=== PATIENT | female | born 1940 | race Caucasian/White ===

== ENCOUNTER → 2018-10-15 15:30 | Outpatient (CLI) | payer MEDICARE, BC, SELFPAY ==
--- NOTE | 2018-10-15 | DI.MG.S_ITS ---
UNILATERAL LEFT DIGITAL SCREENING MAMMOGRAM 3D/2D WITH CAD POST MASTECTOMY: 10/15/2018 CLINICAL: Routine screening. Personal history of right breast cancer. Family history of breast cancer. Comparison exams dated 06/28/2017, and 04/27/2010. There are scattered fibroglandular elements in left breast. Current study was also evaluated with a Computer Aided Detection (CAD) system. There are benign calcifications in the left breast. No significant masses, calcifications, or other findings are seen in the breast. IMPRESSION: There is no mammographic evidence of malignancy. A 1 year screening mammogram is recommended. This exam was interpreted at Station ID: [id number]. NOTE: For mammograms, a report in lay terms will be sent to the patient. Approximately 15% of breast malignancies will not be visualized mammographically. In the management of a palpable breast mass, a negative mammogram must not discourage biopsy of a clinically suspicious lesion. Electronically Signed By: Cristi Canseco M.D. at/:10/15/2018 17:29:11 copy to: EDIE PARRA letter sent: Normal Exam ACR BI-RADS Category 2: Benign Finding(s) 3342F
== END ==
PROVIDERS: Family Provider Family Medicine; PCP Family Medicine; Visit Provider Family Medicine
DX: Z12.31 Encounter for screening mammogram for malignant neoplasm of breast (principal); Z85.3 Personal history of malignant neoplasm of breast; Z80.3 Family history of malignant neoplasm of breast
CPT/HCPCS: 36415; 77063; 77067

== ENCOUNTER → 2020-10-14 12:25 | Outpatient (CLI) | payer MEDICARE, BC, SELFPAY ==
--- NOTE | 2020-10-14 12:27 | DI.US.S_ITS ---
PROCEDURE: US ABDOMEN COMPLETE INDICATIONS: IRRITABLE BOWEL SYNDROME TECHNIQUE: Real-time scanning was performed of the abdominal and retroperitoneal organs, with image documentation. COMPARISON: None. FINDINGS: Liver: Liver is normal in size and homogeneous in echotexture. Gallbladder: No gallstones identified. Normal gallbladder wall. No pericholecystic fluid. Negative sonographic Hammond sign. Biliary ducts: Intrahepatic bile ducts are non-dilated. Extrahepatic bile duct caliber measures 6.1 mm. Normal is 6-7 mm or less in diameter, or 10 mm or less post-cholecystectomy. Pancreas: Visualized portions of the pancreas are sonographically normal. Spleen: Spleen is normal in size and homogeneous in echotexture. Kidneys: Kidneys are normal in size and echotexture. Right kidney measures 9.4 cm long; left kidney measures 10 cm long. No hydronephrosis or nephrolithiasis. No solid masses. Bilateral renal cysts, largest of which is on the left measuring up to 3.3 cm. Aorta: Visualized aorta is normal in caliber at less than 3 cm. Vascular calcifications indicate atherosclerosis. Iliacs: Proximal common iliac arteries are normal in caliber at less than 2.5 cm. IVC: Intrahepatic inferior vena cava is patent. Miscellaneous: No free abdominal fluid. IMPRESSION: Multiple renal cysts; otherwise normal exam. Dictated by: Amrit SPANGLER Interpreted: Rashid Hodgson MD on 10/14/2020 at 13:42 Approved by: Rashid Hodgson M.D. on 10/14/2020 at 14:42
== END ==
PROVIDERS: Family Provider Family Medicine; PCP Family Medicine; Referring Provider Internal Medicine; Visit Provider Internal Medicine
DX: K58.8 Other irritable bowel syndrome (principal); Q61.02 Congenital multiple renal cysts
CPT/HCPCS: 76700

== ENCOUNTER → 2020-10-28 09:58 | Outpatient (CLI) | payer MEDICARE, BC, SELFPAY ==
--- NOTE | 2020-10-28 | DI.MG.S_ITS ---
UNILATERAL LEFT DIGITAL SCREENING MAMMOGRAM 3D/2D WITH CAD POST MASTECTOMY: 10/28/2020 CLINICAL: Routine screening. Personal history of right breast cancer. Family history of breast cancer. Comparison is made to exams dated: 10/15/2018 mammogram - [facility], 07/27/2017 mammogram, 07/12/2017 mammogram, and 06/28/2017 mammogram - [facility]. There are scattered fibroglandular elements in left breast. Current study was also evaluated with a Computer Aided Detection (CAD) system. There are benign vascular calcifications in the left breast. No significant masses, calcifications, or other findings are seen in the breast. There has been no significant interval change. IMPRESSION: BENIGN There is no mammographic evidence of malignancy. A 1 year screening mammogram is recommended. This exam was interpreted at Station ID: [id number]. NOTE: For mammograms, a report in lay terms will be sent to the patient. Approximately 15% of breast malignancies will not be visualized mammographically. In the management of a palpable breast mass, a negative mammogram must not discourage biopsy of a clinically suspicious lesion. Electronically Signed By: Raquel nicholson/serjio:10/28/2020 10:29:42 copy to: EDIE PARRA letter sent: Normal Exam ACR BI-RADS Category 2: Benign Finding(s) 3342F
== END ==
PROVIDERS: Family Provider Family Medicine; PCP Family Medicine; Referring Provider Family Medicine; Visit Provider Family Medicine
DX: Z12.31 Encounter for screening mammogram for malignant neoplasm of breast (principal); Z85.3 Personal history of malignant neoplasm of breast; Z80.3 Family history of malignant neoplasm of breast
CPT/HCPCS: 77063; 77067

== ENCOUNTER 2021-05-11 07:41 | Day surgery (SDC) | payer MEDICARE, BC, SELFPAY ==
--- NOTE | 2021-05-11 | PATH_ITS ---
[facility] Accession Number: [id number] . 01 Material submitted: . PART A: colon - ASCENDING COLON POLYP PART B: colon - RANDOM COLON BIOPSIES PART C: colon - SIGMOID COLON POLYPS X2 . 01 Clinical history: . SDC . 02 Diagnosis: A. Ascending Colon Polyp, Biopsy: Tubular adenoma. . B. Random Colon, Biopsies: Colonic mucosa with no diagnostic abnormality. Negative for active, chronic, and microscopic colitis. Negative for dysplasia and malignancy. . C. Sigmoid Colon Polyps, Biopsies: Tubulovillous adenoma x1. Tubular adenoma x1. Negative for high-grade dysplasia or malignancy. [facility] 05/14/2021 1204 Local . 02 Electronically signed: . Tad Nolasco MD, PhD, Pathologist NPI- [id number] . 01 Gross description: . A. Received in formalin and labeled with ascending colon polyp is one piece of rodriguez soft tissue measuring 0.8 x 0.5 x 0.5 cm. The tissue is inked, trisected and entirely submitted in cassette A1. B. Received in formalin and labeled with random colon biopsy is one fragment of rodriguez soft tissue measuring 0.2 x 0.2 x 0.1 cm. The fragment is entirely submitted in cassette B1. C. Received in formalin and labeled with sigmoid colon polyp are two pieces of rodriguez soft tissue measuring 0.8 x 0.8 x 0.5 and 0.7 x 0.6 x 0.5 cm. The first piece is inked, trisected and entirely submitted in cassette C1. The second piece is inked, trisected and entirely submitted in cassette C2. (BJ:[id number]) /MRV 05/12/2021 0940 Local . 02 Pathologist provided ICD-10: D12.2, D12.5, K62.5 . 02 CPT . 369502, 006457, 095473 Performed at: 01 [facility] [address] [address], [place], [place] [id number] MD Gwyn Rice MD Phone: [phone] Performed at: 02 [facility] [address] [place], [place] [id number] MD Macey Stallings MD Phone: [phone]
[2021-05-11 08:11] VITALS: BP 137/70; PULSE 79; RESP 16; TEMP 36.6; O2SAT 100; BMI 20.9
[2021-05-11 08:16] LABS: COVID19 -Nasal RAPID Negative (Negative)
--- NOTE | 2021-05-11 08:24 | P.HP_ITS ---
History of Present Illness History of Present Illness Date Patient Seen: 05/11/21 Time Patient Seen: 08:24 Chief complaint: SDC Narrative: Diarrhea bleeding I reviewed my notes no changes Patient History Family & Social History Social History: household members family Tobacco & Substance use: Smoking Status Former smoker alcohol intake frequency a few times a week Substance Use Type does not use Meds Home Medications and Allergies Home Medications Medication Instructions Recorded Confirmed Type Sertraline Hydrochloride (Zoloft) 50 mg PO DAILY #0 12/23/06 05/11/21 History [TUMERIC] 1,000 mg PO QAM #0 08/07/17 05/11/21 History loperamide 2 mg capsule 2 mg PO QDAY #0 08/07/17 05/11/21 History [IRON BUILDER] 1 tab PO DAILY #0 09/04/17 05/11/21 History aspirin 81 mg tablet,delayed 81 mg PO DAILY 12/06/17 05/11/21 History release letrozole 2.5 mg tablet 2.5 mg PO DAILY 12/06/17 05/11/21 History lisinopril 10 mg tablet 10 mg PO DAILY 12/06/17 05/11/21 History triamterene 37.5 1 cap PO DAILY 12/06/17 03/28/19 History mg-hydrochlorothiazide 25 mg capsule cholecalciferol (vitamin D3) 50 08/30/18 History mcg (2,000 unit) capsule (Vitamin D3) Review of Systems Review of Systems ROS: Yes All systems reviewed with the patient and are negative except as otherwise documented Exam Vital Signs (past 8 hours): - 05/11/21 08:11 Temperature 97.8 F Pulse Rate 79 Respiratory Rate 16 Blood Pressure 137/70 Pulse Oximetry 100 Oxygen Delivery Method Room Air Const General: cooperative and comfortable Orientation: alert [facility] Head: normocephalic Ears: external ears normal Nose: external nose normal Face and sinus: normal facial exam Mouth: oral mucosae normal Eyes General: appearance normal, both eyes and all related structures Neck Neck: normal visual inspection Chest Chest: normal inspection of the chest Resp Effort & Inspection: normal respiratory effort Auscultation: clear to auscultation bilaterally Cardio Rate: regular rate Rhythm: regular rhythm Heart Sounds: no murmurs GI Inspection: normal to inspection Palpation: soft and No tender Auscultation: normal bowel sounds Skin General: no rashes or lesions noted and No jaundice Neuro General: patient alert and moves all extremities Cognition: normal cognition Speech: speech normal Extrem General: no pedal edema Psych Appearance: grossly normal Objective Labs Labs: Laboratory Results - last 24 hr 05/11/21 07:56 SARS-CoV-2 (PCR) Negative Assessment & Plan Assessment & Plan narrative: Diarrhea. Improved with fiber. History of bleeding. Updated colonoscopy is pursued today. Time Spent With Patient Critical Care time: I spent a total of [] minutes of critical care time on this patient's care today; this time is exclusive of procedural time.
--- NOTE | 2021-05-11 08:25 | PM.PREOP ---
Pre-operative Note COVID-19 COVID-19 status: Negative Result date/Date tested (Pos, Neg/Pending): 05/11/21 Interval Note History & Physical reviewed/Exam performed by Physician: Yes Changes to H&P: No ASA Class (for procedural sedation): II
[2021-05-11] MEDS: SODIUM CHLORIDE 0.9% 1,000 ML 150 ML IV (08:26)
--- NOTE | 2021-05-11 09:33 | P.OP.COLON_ITS ---
Operative Date/Time/Diagnoses Date of procedure: 05/11/21 Time of procedure: 09:33 Pre-op diagnosis: Bleeding diarrhea Post-op diagnosis: same Procedure & Clinicians Study performed: Colonoscopy with hot snare polypectomy cold snare polypectomy and biopsies Same procedure as scheduled: Yes Indications: Rectal bleeding and diarrhea Surgeon: Edvin Joel Procedure Notes SCOAP/Timeout: Done Procedure in detail: After the risks and benefits were explained, written and verbal informed consent was obtained. The patient was brought into the procedure room and placed into the left lateral decubitus position. Please see nurse wood boatbuilder apprentice notes for sedation details. Digital rectal examination was accomplished. The scope was introduced into the patient and advanced under direct visualization to the cecum as identified by the appendiceal orifice and ileocecal valve. The scope was slowly withdrawn to carefully examine the mucosa for any defects or lesions. Comprehensive imaging was accomplished throughout the rectum including the dentate line. The colon was decompressed, the scope was then removed from the patient who tolerated the procedure well. Bowel prep adequate Pediatric colonoscope Scope withdrawal time: 21 minutes Sedation minutes: 29 Complications: none Impression: There was some mild diverticulosis in left colon. No colitis no proctitis. Random colon biopsies were taken for exclusion of microscopic disease. The there was a new 8 mm polyp sessile in the proximal ascending removed with hot snare. There was a 2nd approximately 2 cm polyp in the sigmoid colon removed with hot snare. A 3rd diminutive 4-5 mm polyp in the sigmoid was removed with cold snare. Endoscopic diagnosis 1. Colon polyps 2. Diverticulosis Post-procedure Plan for aftercare: 1. Await histopathology 2. Continue fiber regimen for soft regular stools. Surveillance colonoscopy would typically be pursued in 3 years based on the number of polyps seen and removed today. This places the patient at age 84 and therefore is not required. Disposition: PACU
[2021-05-11 09:35] VITALS: BP 127/75; PULSE 69; RESP 15; TEMP 36.5; O2SAT 97
[2021-05-11 09:43] VITALS: BP 134/65; PULSE 68; RESP 19; O2SAT 98
[2021-05-11 09:48] VITALS: BP 146/66; PULSE 63; RESP 25; O2SAT 99
== END 2021-05-11 10:04 | disposition home or self-care (01) ==
PROVIDERS: Family Provider Family Medicine; PCP Family Medicine; Referring Provider Internal Medicine Gastroenterology; Visit Provider Internal Medicine Gastroenterology
PROC: 0DJD8ZZ Inspection of Lower Intestinal Tract, Via Natural or Artificial Opening Endoscopic (ICD-10-PCS; CPT 45378; principal; 2021-05-11 09:00)
DX: K62.5 Hemorrhage of anus and rectum (principal); R19.7 Diarrhea, unspecified; R15.2 Fecal urgency; Z20.822 Contact with and (suspected) exposure to COVID-19; K57.30 Diverticulosis of large intestine without perforation or abscess without bleeding; D12.4 Benign neoplasm of descending colon; D12.5 Benign neoplasm of sigmoid colon
CPT/HCPCS: 45385; 45380; 87635; J2704

== ENCOUNTER 2022-03-25 22:08 | Emergency (ER) | payer MEDICARE, BC, SELFPAY ==
[2022-03-25 22:22] VITALS: BP 152/67; PULSE 74; RESP 16; TEMP 36.5; O2SAT 99; BMI 20.6
--- NOTE | 2022-03-25 22:34 | DI.RAD.S_ITS ---
PROCEDURE: XR WRIST LT MIN 3V INDICATIONS: fall TECHNIQUE: 3 views of the wrist were acquired. COMPARISON: [facility], , WRIST MINIMUM 3 VIEWS RIGHT, 12/31/2015, 11:23. FINDINGS: Bones: There is a transverse fracture through the distal radial metadiaphysis with proximal and dorsal displacement. There is also slight dorsal angulation. Fracture involve the distal radioulnar joint. There is also mildly displaced transverse fracture of the distal ulna with mild dorsal displacement and angulation. There is mild to moderate degeneration at the 1st carpometacarpal joint and triscaphe articulation as well as the radiocarpal joint. There is diffuse osteopenia. Soft tissues: There is periarticular soft tissue swelling at the wrist. There is a corticated ossicle adjacent to the distal ulnar consistent with sequelae of a prior ulnar styloid fracture. IMPRESSION: 1. Fractures of the distal radius and ulna as described. Dictated by: Gwyn Solo M.D. on 03/26/2022 at 0:07 Approved by: Gwyn Solo M.D. on 03/26/2022 at 0:15
--- NOTE | 2022-03-26 00:27 | ED.TRAUMA ---
HPI - Trauma General Chief Complaint: Extremity Injury, Upper Stated Complaint: Fell and hurt left wrist Time Seen by Provider: 03/26/22 00:02 Source: patient Mode of arrival: Wheelchair History of Present Illness HPI narrative: 81-year-old woman with a history of breast cancer, hypertension depression presents after a fall on an outstretched hand while she was getting into bed. Seems like it was a mechanical fall she has no other complaints she has an obvious deformity to the left wrist and is otherwise neurovascularly intact. She reports no recent fevers, cough, chest pain, abdominal pain, palpitations, dyspnea car, orthopnea, lower extremity edema. Related Data Home Medications Medication Instructions Recorded Confirmed Sertraline Hydrochloride (Zoloft) 50 mg PO DAILY ##0 12/23/06 05/11/21 [TUMERIC] 1,000 mg PO QAM ##0 08/07/17 05/11/21 loperamide 2 mg capsule 2 mg PO QDAY ##0 08/07/17 05/11/21 [IRON BUILDER] 1 tab PO DAILY ##0 09/04/17 05/11/21 aspirin 81 mg tablet,delayed 81 mg PO DAILY 12/06/17 05/11/21 release letrozole 2.5 mg tablet 2.5 mg PO DAILY 12/06/17 05/11/21 lisinopril 10 mg tablet 10 mg PO DAILY 12/06/17 05/11/21 triamterene 37.5 1 cap PO DAILY 12/06/17 03/28/19 mg-hydrochlorothiazide 25 mg capsule cholecalciferol (vitamin D3) 50 08/30/18 mcg (2,000 unit) capsule (Vitamin D3) Previous Rx's Medication Instructions Recorded letrozole 2.5 mg tablet 2.5 mg PO DAILY #90 tabs 11/15/21 hydrocodone 5 mg-acetaminophen 325 1 tab PO Q6HR PRN pain 4 days #12 03/26/22 mg tablet tabs Allergies Allergy/AdvReac Type Severity Reaction Status Date / Time No Known Drug Allergies Allergy Verified 05/11/21 09:39 Review of Systems Review of Systems Narrative: Remainder of complete review of systems is otherwise unremarkable except for that included in the HPI. Patient History Medical History (Updated 03/26/22 @ 02:32 by lAda Browning MD) Hypertension Malignant neoplasm of right female breast Social History household members: family Smoking Status: Former smoker Smoking Status: Former smoker alcohol intake frequency: a few times a week Substance Use Type: does not use Exam Initial Vital Signs Initial Vital Signs: Vital Signs Temperature 97.7 F 03/25/22 22:22 Pulse Rate 74 03/25/22 22:22 Respiratory Rate 16 03/25/22 22:22 Blood Pressure 152/67 H 03/25/22 22:22 Pulse Oximetry 99 03/25/22 22:22 Oxygen Delivery Method 03/25/22 22:22 General: Alert appropriate in no acute distress Respiratory: Able to speak in full sentences, no obvious respiratory distress Skin: No obvious rashes, warm and dry Neurologic: Grossly intact no obvious asymmetries or abnormalities Psych: appropriate insight and affect, cooperative Extremity: Left wrist with significant bruising, mild deformity, neurovascularly intact, increased swelling. No pain or tenderness to the elbow humerus or shoulder. Procedures Orthopedic Fracture Reduction left wrist: Time of procedure: 02: Side: left Fracture Reduction Location: radius and ulna Analgesia: hematoma block Technique: direct manipulation Post Reduction X-rays Demonstrate: acceptable reduction Post-reduction neuro exam: intact Post-reduction vascular exam: intact Splint Applied: Yes Patient Tolerated Procedure: Well Orthopedic Splinting/Casting left wrist: Time of procedure: 02:28 Side: left Upper Extremity Injury Location: wrist Upper Extremity Immobilizer: sugar tong splint Other Orthopedic Equipment: other (sling) Post splinting neuro exam: intact Post splinting vascular exam: intact Placed by: Provider Course Orders Ordered: ED Orders 03/25/22 22:34 XR wrist LT min 3V Stat 03/26/22 02:23 XR wrist LT min 3V Stat Discontinued Medications Acetaminophen (Acetaminophen 325 Mg Tablet) 325 mg PO NOW ONE Stop: 03/26/22 00:27 Last Admin: 03/26/22 00:56 Dose: 325 mg Documented By: KAREN Hydrocodone Bitart/Acetaminophen (Hydrocodone/Acet 10/325 Tablet) 1 tab PO NOW ONE Stop: 03/26/22 00:27 Last Admin: 03/26/22 00:55 Dose: 1 tab Documented By: KAREN Hydrocodone Bitart/Acetaminophen (Hydrocodone/Acet 5/325 Prepack) 1 bottle MISC SEEINSTR ONE Stop: 03/26/22 02:25 Lidocaine/Sodium Bicarbonate (Lido 1%/Sod Bicarb 8.4% (10ml) 10 Ml Syringe) 10 ml INJ NOW ONE Stop: 03/26/22 00:27 Last Admin: 03/26/22 00:50 Dose: Not Given Documented By: YASEMIN Vital Signs Vital signs: Vital Signs - 8 hr 03/25/22 22:22 Temperature 97.7 F Pulse Rate 74 Respiratory Rate 16 Blood Pressure 152/67 H Pulse Oximetry 99 Oxygen Delivery Method Room Air MDM - Trauma Imaging Data XR wrist: Radiologist's Impression: FINDINGS:? ? Bones:? There is a transverse fracture through the distal radial metadiaphysis with proximal and dorsal displacement.? There is also slight dorsal angulation.? Fracture involve the distal radioulnar joint.? There is also mildly displaced transverse fracture of the distal ulna with mild dorsal displacement and angulation.? There is mild to moderate degeneration at the 1st carpometacarpal joint and triscaphe articulation as well as the radiocarpal joint.? There is diffuse osteopenia. ? Soft tissues:? There is periarticular soft tissue swelling at the wrist.? There is a corticated ossicle adjacent to the distal ulnar consistent with sequelae of a prior ulnar styloid fracture. ? IMPRESSION:? ? 1. Fractures of the distal radius and ulna as described. ? ? Dictated by: Gwyn Solo M.D. on 03/26/2022 at 0:07 ? ? [facility] Narrative Medical decision making narrative: 81-year-old woman with a fall on an outstretched left wrist with fractures of the distal radius and ulna with impaction, displacement and angulation. Hematoma block was used to slightly reduce the fracture with successful reduction in pain. Sugar-tong splint is placed and a sling is placed. She tolerated both well. Discharge Plan Departure Patient Disposition: Home Clinical Impression: Fracture of wrist Instructions: DI for Wrist Fracture Activity Restrictions/Additional Instructions: I am sorry that you ended up breaking your wrist tonight We did straighten it out slightly but you absolutely need to follow-up with the orthopedic surgeon and may need surgery for this fracture. Please keep the splint in place and use the sling to help support your arm. Two Tylenol every 6 hours can be very helpful in controlling pain. For severe pain you can use 1 ibuprofen and 1 Vicodin. This is the medication we gave you in the emergency department. Vicodin has narcotic in it and narcotics will make you constipated. Please add an extra scoop of MiraLax to your current bowel regimen on any days that you take Vicodin. On Monday you need to contact [facility] at [phone] Please explain to them that you are in the emergency department on Monday night and you have a wrist fracture that needs definitive treatment. If you find that you are getting worse or develop any new symptoms, please feel free to return to the emergency department for further evaluation. Prescriptions: New hydrocodone-acetaminophen 5-325 mg tablet 1 tab PO Q6HR PRN (Reason: pain) 4 Days Qty: 12 0RF No Action Sertraline Hydrochloride (Zoloft) 50 mg PO DAILY Qty: 0 loperamide 2 MG capsule 2 mg PO QDAY Qty: 0 [TUMERIC] 1,000 mg PO QAM Qty: 0 [IRON BUILDER] 1 tab PO DAILY Qty: 0 aspirin 81 mg Tablet,Delayed Release (Dr/Ec) 81 mg PO DAILY triamterene-hydrochlorothiazid 37.5-25 mg Capsule 1 cap PO DAILY lisinopril 10 mg Tablet 10 mg PO DAILY letrozole 2.5 mg Tablet 2.5 mg PO DAILY Label Comments: started rx 09/2017 cholecalciferol (vitamin D3) [Vitamin D3] 2,000 unit Capsule letrozole 2.5 mg Tablet 2.5 mg PO DAILY Qty: 90 3RF Referrals: Johnathan Zhu MD [Primary Care Provider] -
[2022-03-26] MEDS: HYDROCODONE/ACET 10/325 TABLET 1 TAB PO (00:55)
[2022-03-26] MEDS: ACETAMINOPHEN 325 MG TABLET PO (00:56)
--- NOTE | 2022-03-26 02:23 | DI.RAD.S_ITS ---
PROCEDURE: XR WRIST LT MIN 3V INDICATIONS: post reduction TECHNIQUE: 3 views of the wrist were acquired. COMPARISON: [facility], CR, XR WRIST LT MIN 3V, 03/25/2022, 22:41. FINDINGS: Bones: Generalized decrease in osseous mineralization noted. Transverse fracture through the distal radial metaphysis noted with dorsal displacement of distal fracture fragment, similar to the prior. Nondisplaced distal ulnar fracture. Overlying fiberglass cast Soft tissues: No suspicious soft tissue calcifications. IMPRESSION: Dorsally displaced distal radial fracture. Nondisplaced distal ulnar fracture Osteopenia Approved by: Afshin Jackson M.D. on 03/26/2022 at 6:25
[2022-03-26] MEDS: LIDOCAINE 2% INJ SDV 20 ML (03:12)
[2022-03-26] MEDS: HYDROCODONE/ACET 5/325 PREPACK 1 BOTTLE MISC (03:19)
[2022-03-26 03:20] VITALS: BP 152/83; PULSE 62; RESP 18; TEMP 36.4; O2SAT 94
== END 2022-03-26 03:28 | disposition home or self-care (01) ==
PROVIDERS: Emergency Provider Emergency Medicine; Family Provider Family Medicine; PCP Family Medicine
DX: S52.502A Unspecified fracture of the lower end of left radius, initial encounter for closed fracture (principal); W19.XXXA Unspecified fall, initial encounter
CPT/HCPCS: 25605; 29105; 73110; 99284

== ENCOUNTER → 2022-03-30 13:58 | Outpatient (CLI) | payer MEDICARE, BC, SELFPAY ==
[2022-03-30 14:32] LABS: COVID19 -Nasal RAPID Negative (Negative)
== END ==
PROVIDERS: Family Provider Family Medicine; PCP Family Medicine; Referring Provider Orthopaedic Surgery Foot and Ankle Surgery; Visit Provider Orthopaedic Surgery Foot and Ankle Surgery
DX: Z20.822 Contact with and (suspected) exposure to COVID-19 (principal)
CPT/HCPCS: 87635; C9803

== ENCOUNTER 2022-04-01 09:48 | Day surgery (SDC) | payer MEDICARE, BC, SELFPAY ==
[2022-03-29 15:01] VITALS: BMI 22.1
[2022-04-01 10:20] VITALS: BP 139/73; PULSE 65; RESP 18; TEMP 36.8; O2SAT 99; BMI 22.1
[2022-04-01] MEDS: LACTATED RINGERS 1,000 ML 120 ML IV (10:46)
--- NOTE | 2022-04-01 11:12 | PM.PREOP ---
Pre-operative Note COVID-19 COVID-19 status: Negative Interval Note History & Physical reviewed/Exam performed by Physician: Yes Changes to H&P: No
--- NOTE | 2022-04-01 11:27 | SUR.PREOP ---
Block start time [1120] . Monitoring initiated and maintained throughout procedure. Oxygen and medications given by anesthesiologist instructions. Patient remained stable throughout procedure, no adverse reactions noted. Block end time [1126].
[2022-04-01] MEDS: CEFAZOLIN 2 GM/100 ML PREMIX 100 ML IV (11:46)
--- NOTE | 2022-04-01 12:18 | SUR.OPER ---
Supine on padded OR bed, head on pillow, arms secured on padded arm boards at <90 degrees abduction, legs uncrossed, safety belt at thigh, tape over blanket over lower legs.left arm in control of surgeon
--- NOTE | 2022-04-01 12:36 | SUR.OPER ---
Addendum entered by Fiorella Tran R.N. 04/01/22 14:41: Patients bilateral hearing aids with patient in the OR and then to PACU with her personal small black case for the hearing aids. Bilateral hearing aids visualized in patient in PACU. Original Note: MINI C ARM CONTROL BY SURGEON
[2022-04-01 13:32] VITALS: BP 147/68; PULSE 64; RESP 12; TEMP 36.2; O2SAT 96
[2022-04-01 13:37] VITALS: BP 148/108; PULSE 73; RESP 16; O2SAT 96
[2022-04-01 13:41] VITALS: BP 153/81; PULSE 63; RESP 14; O2SAT 96
[2022-04-01 13:46] VITALS: BP 144/78; PULSE 62; RESP 14; O2SAT 95
[2022-04-01 13:51] VITALS: BP 157/73; PULSE 59; RESP 12; O2SAT 95
--- NOTE | 2022-04-01 14:22 | PM.OP.1 ---
Operative Date/Time/Diagnoses Date of procedure: 04/01/22 Time of procedure: 12:22 Pre-op diagnosis: Left distal radius fracture S52.532A Left distal ulna fracture S52. 692A Disruption distal radioulnar joint left S63.592A Post-op diagnosis: same Procedure & Clinicians Procedure: 1. Open reduction internal fixation left distal radius fracture CPT code 81268 2. Percutaneous skeletal fixation ulnar neck fracture CPT code 46059 3. Distal radial ulnar joint percutaneous skeletal fixation, pinning distal radial ulnar joint dislocation CPT code 22851 Same procedure as scheduled: Yes Indications: The patient is an 81-year-old female who had a fall onto her nondominant left wrist. She sustained distal radius and ulna fractures with disruption of the DRUJ. She does have some deformity from previous non operatively treated distal radius fracture years ago. She was indicated for surgical treatment due to the significant displacement and shortening and suspected DRUJ disruption. She depends heavily on her upper extremities for mobilization due to debilitating hip arthritis. Due to the nature of the fracture instability and shortening and displacement I have recommended surgical treatment to obtain alignment and provide stability and facilitate relatively early range of motion and loading. The risks and benefits of the procedure have been discussed with the patient and given the opportunity to ask questions. The risks of surgery include but are not limited to infection, malunion, nonunion, persistence of pain, damage to nerves and blood vessels, posttraumatic arthritis, DVT, PE, coardiopulmonary complications and . The patient expressed a thorough understanding of the risks and benefits of surgery and has elected to proceed. Consent was signed in the office. Surgeon: Keely Mitchell Click Yes if Unassisted: Yes Anesthesia Type: MAC +/- and Peripheral nerve block Operative Notes Findings: Dorsally displaced distal radius fracture, extra-articular with volar dislocation distal ulna and nondisplaced ulnar neck fracture. Distal radius fracture was reduced with flexion and translation of the distal fragment volarly this was pinned and then stabilized with a volar locking plate from the Arthrex set. Next attention was turned to the ulna fracture this was a nondisplaced ulnar neck fracture this was pinned cross K-wires. Next the DRUJ was tested for stability it was noted that the ulnar head remained dislocated volarly this was able to be reduced with pronation and dorsal translation of the ulna this was then pinned in place with cross K-wire and checked under fluoroscopy noting improvement of the DRUJ interval and position on the lateral radiographs. Closure Type: primary Specimen(s): none sent Prosthetic devices, grafts, tissues, transplants, or devices: Distal radius fixation: Arthrex narrow volar locking distal radius plate with 1 nonlocking and the rest locking distal screws and pegs. Proximally 1 nonlocking screw was placed in the oblong hole followed by 2 locking shaft screws. Distal ulna fixation: K-wire 1.35 (initially 2 cross wires were placed. One was removed with dressings. X-rays were taken confirmed removal and maintenance of the other wire and stability) DRUJ fixation crossed K-wire 1.35 Estimated Blood Loss (mL): 10 Blood products transfused: none Tourniquet time (min): 56 Procedure in detail: Patient was seen the preoperative area the site of surgery marked informed consent confirmed. She was brought back to the operating room by the anesthesia team. A regional block was placed by the anesthesiologist for postoperative pain control and to avoid general anesthetic. Patient was positioned supine on operative table. The left upper extremities placed on a hand table. A nonsterile brachial tourniquet was placed. The patient was prepped and draped in standard sterile fashion a formal time-out procedure was performed confirming the patient's side and site of surgery administration of appropriate preoperative antibiotics. All were in the room in agreement. 2 g of Ancef was administered. The operative extremity was prepped and draped in the standard sterile fashion. An Esmarch was used for exsanguination and the brachial tourniquet was raised to 250 mm of mercury. Standard FCR approach to the wrist was drawn in the incision made. The FCR was exposed. The sheath was opened and the tendon was retracted ulnar protect the palmar cutaneous branch of the median nerve. Floor of the FCR was opened to expose the deep muscles. The FPL was retracted ulnar and the pronator quadratus was released from the radial border and reflected ulnar to expose the distal radius and distal fracture. Fracture was disimpacted and clean. The fracture was reduced with traction, flexion ulnar deviation. An 045 K-wire was advanced percutaneously from the radial styloid to the metaphysis to hold the reduction. Reduction was checked fluoroscopy and radial inclination tilt was recreated. Three hole narrow Arthrex volar locking plate was selected and positioned and provisionally fixed with K-wires. And a ORION Parham. Once this was satisfactory, nonlocking 3.5 screws placed in the oblong hole and secured. Distal screws were then placed 1st with nonlocking screws followed by locking pegs. These were placed carefully not to penetrate the dorsal cortex. Once this was completed and checked for prominence the final locking shaft screws were placed. Again with care to avoid prominence. Final intraoperative images were obtained reviewed demonstrating no evidence of hardware prominence. Attention was then turned to the distal ulna fracture. There was a nondisplaced distal ulna neck fracture there is evidence of the previous old ulnar styloid fracture. The new ulnar neck fracture was pinned with cross K-wires. Wrist motion was checked and was full but the DRUJ was unstable there was increased shock and felt volar dislocated and prominent in the volar wrist. This was reduced with pronation and dorsal translation of the distal ulna and then gentle medial lateral pressure on the DRUJ and was pinned with a ulna to radius wire across the DRUJ to hold this in a reduced position. Once this was completed this was stabilize the DRUJ. Radiographs were once again taken confirming the reduced position on AP and lateral radiographs. The wound was then irrigated and closed in layers. Hemostasis was achieved and the tourniquet was released prior to closing. 3- 0 Vicryl was used deep and subcutaneous and 3 O nylon in the skin. Sterile dressings with a long-arm splint in pronation were applied to help keep the DRUJ reduction since this was a volarly unstable DRUJ. There no immediate complications. Surgical counts were correct. The patient tolerated the procedure well was taken recovery room. Complications: none Post-operative Condition: stable Disposition: PACU Plan for aftercare: Patient will be maintained in a long-arm splint in pronation as this is the position of stability for her DRUJ dislocation. The cross K-wires for the ulna and DRUJ will stay in place for weeks. At the 4 week olivia she will be converted to a short arm brace or cast. Prescriptions for Ribera and Zofran sent to her pharmacy. She may place some weight on the forearm with a platform walker if necessary for balance. Otherwise nonweightbearing left upper extremity
--- NOTE | 2022-04-01 14:49 | SUR.PHASEII ---
Pt given instructions for discharge as well her daughter. Incontinent x1 prior to DC. Changed and given scrubs. Dr Mitchell also spoke with pt prior to discharge.
== END 2022-04-01 14:35 | disposition home or self-care (01) ==
PROVIDERS: Family Provider Family Medicine; PCP Family Medicine; Referring Provider Orthopaedic Surgery Foot and Ankle Surgery; Visit Provider Orthopaedic Surgery Foot and Ankle Surgery
PROC: (CPT 25607; principal; 2022-04-01 11:15)
DX: S52.532A Colles' fracture of left radius, initial encounter for closed fracture (principal); S52.692A Other fracture of lower end of left ulna, initial encounter for closed fracture; S63.592A Other specified sprain of left wrist, initial encounter; W19.XXXA Unspecified fall, initial encounter
CPT/HCPCS: 25607; 25651; 25671; 64450; C1713; J0171; J0690; J2250; J2704; J3010

== ENCOUNTER → 2022-07-27 09:54 | Outpatient (CLI) | payer MEDICARE, BC, SELFPAY ==
--- NOTE | 2022-07-27 | DI.US.S_ITS ---
PROCEDURE: US ABDOMEN LIMITED INDICATIONS: ABNORMAL LABS TECHNIQUE: Real-time focused scanning was performed of the abdomen, with image documentation. COMPARISON: [facility], , US ABDOMEN COMPLETE, 10/14/2020, 12:31. FINDINGS: The liver is normal in size and demonstrates no suspicious lesions. Within the right liver, there is a 1.2 cm cyst. Within the right liver there is an additional septated cyst anteriorly measuring 0.8 cm. The main portal vein demonstrates normal size and demonstrates normal appearing, hepatopetal flow. No findings of gallstones or sludge are seen. The gallbladder wall is not thickened, measuring 3 mm or less. No specific pericholecystic fluid is seen. The sonographic Hammond sign is negative. There is no biliary dilatation, the common bile duct measures 7 mm. No significant pancreatic abnormality is seen on these images. Numerous right kidney cysts are seen, with the largest seen superiorly/anteriorly measuring up to 17 mm. The right kidney demonstrates normal size, with normal cortical thickness. Note is made of plaque within the aorta and SMA. IMPRESSION: No imaging explanation is found for this patient's presenting symptoms. Liver and right renal cysts noted. Dictated by: Norman Michelle M.D. on 07/27/2022 at 11:30 Approved by: Norman Michelle M.D. on 07/27/2022 at 11:32
== END ==
PROVIDERS: Family Provider Family Medicine; PCP Family Medicine; Referring Provider Family Medicine; Visit Provider Family Medicine
DX: K76.89 Other specified diseases of liver (principal); N28.1 Cyst of kidney, acquired; R74.9 Abnormal serum enzyme level, unspecified
CPT/HCPCS: 76705

== ENCOUNTER → 2022-08-08 14:59 | Outpatient (CLI) | payer MEDICARE, BC, SELFPAY ==
[2022-08-08 15:30] LABS: Add Manual Diff / Slide Review NO; Basophils Absolute Auto 100 /uL (0-100); Basophils Percent Auto 1.5 % (0-2); Eosinophils Absolute Auto 700 /uL (0-450); Eosinophils Percent Auto 12.2 % (2-4); Hemoglobin 10.9 g/dL (12.0-16.0); Lymphocytes Absolute Auto 1400 /uL (1100-4500); Lymphocytes Percent Auto 23.5 % (25-40); Mean Corpuscular Hemoglobin 29.3 PG (26-34); Mean Corpuscular Volume 88.6 fL (80-100); Monocytes Absolute Auto 500 /uL (0-900); Neutrophils Absolute Auto 3200 /uL (1500-7000); Neutrophils Percent Auto 53.8 % (50-75); Platelet Count 209 X10^3/uL (150-400); Red Blood Cell Count 3.72 X10^6/uL (4.0-5.2); Red Cell Distribution Width 14.8 % (11.6-14.8); White Blood Cell Count 5.9 X10^3/uL (4.5-11.0)
[2022-08-08 15:33] LABS: Hemoglobin A1C% w Est Avg Glu 5.4 % (4.0-6.0)
[2022-08-08 15:40] LABS: Appearance Urine UA CLEAR; Bilirubin Urine UA NEGATIVE (NEGATIVE); Color Urine UA YELLOW; Glucose Urine UA NEGATIVE (Negative); Ketones Urine UA NEGATIVE (NEGATIVE); Leukocyte Esterase Urine UA NEGATIVE (NEGATIVE); Nitrite Urine UA NEGATIVE (Negative); Occult Blood Urine UA NEGATIVE (Negative); Protein Urine UA NEGATIVE (Negative); Urobilinogen Urine UA 0.2 E.U./dL (0.2)
[2022-08-08 15:52] LABS: Amorphous Sediment Urine 1+; Bacteria Urine None Seen; Culture Indicated Urine Cult Not Indicated; RBC Urine None Seen (0-5/HPF); Squamous Epithelial Cell Urine 0-1 /HPF (0-5/HPF); WBC Urine 0-1/HPF (0-5/HPF)
[2022-08-08 16:01] LABS: Blood Urea Nitrogen 29 mg/dL (7-17); Calcium 10.4 mg/dL (8.4-10.2); Carbon Dioxide 25 mmol/L (22-32); Chloride 98 mmol/L (98-107); Estimated Glomerular Filt Rate 36 mL/min (>60); Glucose 104 mg/dL (80-110); HEMOLYSIS < 15 (0-50); Potassium 4.3 mmol/L (3.4-5.1); Sodium 133 mmol/L (137-145)
== END ==
PROVIDERS: Family Provider Family Medicine; PCP Family Medicine; Referring Provider Orthopaedic Surgery; Visit Provider Orthopaedic Surgery
DX: R73.9 Hyperglycemia, unspecified (principal); Z01.812 Encounter for preprocedural laboratory examination; N39.0 Urinary tract infection, site not specified
CPT/HCPCS: 36415; 80048; 81001; 83036; 85025

== ENCOUNTER 2022-10-14 12:27 | Inpatient (IN) | payer MEDICARE, BC, SELFPAY ==
[2022-10-03 08:19] VITALS: BMI 21.7
[2022-10-13] VITALS (10 sets, daily range): BP systolic 113–175; BP diastolic 49–83; PULSE 45–79; RESP 12–17; TEMP 36.6–37.3; O2SAT 92–98; BMI 21.7
--- NOTE | 2022-10-13 07:10 | DI.RAD.S_ITS ---
PROCEDURE: XR HIP W PEL IF DONE LT 2V INDICATIONS: Postop XR TECHNIQUE: AP pelvis and lateral view of the left hip acquired. COMPARISON: None. FINDINGS: Bones: Patient is status post left hip arthroplasty, with hardware components in expected positions. The hip joint appears congruent. The visualized bony structures appear intact. Remote total right hip arthroplasty. Soft tissues: Overlying postoperative changes are noted. No suspicious soft tissue densities. IMPRESSION: Expected immediate postoperative appearance, status post total left hip arthroplasty. Dictated by: Foreign Howard M.D. on 10/13/2022 at 13:35 Approved by: Foreign Howard M.D. on 10/13/2022 at 13:36
[2022-10-13 09:20] LABS: COVID19 -Nasal RAPID Negative (Negative)
[2022-10-13] MEDS: LACTATED RINGERS 1,000 ML 42 ML IV ×2 (09:25→13:34)
[2022-10-13] MEDS: ACETAMINOPHEN 325 MG TABLET 975 MG PO (09:25)
[2022-10-13] MEDS: CELECOXIB 200 MG CAPSULE PO (09:26)
[2022-10-13] MEDS: PREGABALIN 75 MG CAPSULE PO (09:26)
[2022-10-13] MEDS: VANCOMYCIN 1,000 MG/200 ML PIGGYBACK 200 MG IV (10:08)
--- NOTE | 2022-10-13 10:33 | PM.PREOP ---
Pre-operative Note Interval Note History & Physical reviewed/Exam performed by Physician: Yes Changes to H&P: No
--- NOTE | 2022-10-13 10:35 | PM.OP.1 ---
Operative Date/Time/Diagnoses Date of procedure: 10/13/22 Time of procedure: 10:55 Pre-op diagnosis: left hip OA Post-op diagnosis: same Procedure & Clinicians Procedure: Left total hip arthroplasty anterior approach Same procedure as scheduled: Yes Indications: The patient has had progressively worsening left hip pain with radiographic changes consistent with arthritis. Non-operative management has failed and the patient has requested total hip replacement. The risks, benefits and alternatives to surgery were discussed with the patient prior to proceeding. Risks discussed included, but were not limited to, failure to relieve pain, leg length discrepancy, dislocation, stiffness, infection, nerve damage, deep venous thrombosis, pulmonary embolism, stroke, coma, heart attack, permanent paralysis and , as well as the potential need for eventual revision of the prosthetic. Surgeon: Hanna Rivera Chief Development Officer: Sandro Blevins Anesthesia Type: Spinal Operative Notes Findings: Severe left hip osteoarthritis, adequate stability Closure Type: primary Specimen(s): none sent Prosthetic devices, grafts, tissues, transplants, or devices: Rivera and nephew anthology standard offset size 8, 52 mm R3 cup, 36 x 52 mm neutral poly liner, 36 x -3 cobalt femoral head Estimated Blood Loss (mL): 200 Blood products transfused: none Procedure in detail: The patient was brought to the operating room. Patient was carefully positioned in the supine position. Time-out was performed and antibiotics were given. Anesthesia was induced. She was positioned in the on the table in order to allow hyperextension of the hip. The left lower extremity was prepped and draped in a standard sterile fashion. An anterior left hip incision was made 1 fingerbreadth lateral to the anterior superior iliac spine and extended distally towards the greater trochanter. Dissection was carried out through skin and subcutaneous tissues. Superficial hemostasis was achieved. The fascia over the tensor fascia halima was defined and incised with a knife. Two Allis clamps were used to grasp the fascia. Tensor fascia halima was retracted laterally. A gelpi retractor was placed. Dissection was carried out down along the neck. The circumflex vessels were carefully identified and cauterized with the Aqua Mantis. There was good visualization of the femoral neck. A Cobra was placed superior to the neck and the gluteus fibers were carefully stripped from that superior aspect of the capsule. A 2nd retractor was placed along the inferior aspect of the neck. The rectus insertion along the capsule was partially released. A 3rd retractor that was then gently placed over the rim of the acetabulum under the rectus. Capsule was carefully incised and released from the intertrochanteric line circumferentially superior to the mid sagittal line and inferiorly to the mid sagittal line until the lesser trochanter was palpable. A tag stitch was placed both in the superior and inferior limb of the capsular insertion. Along the acetabulum capsule was also released up to the mid sagittal 12:00 position. A portion of the labrum was resected. A saw was used to perform an osteotomy at the level of the intertrochanteric line and the junction of the superior femoral neck leaving approximately 1 finger breath of residual inferior neck above the lesser trochanter. A 2nd cut was made along the femoral neck at the base of the head and a napkin ring of neck was removed. Corkscrew was placed in the femoral head and the head was removed without difficulty. Retractors were then repositioned around the acetabulum. Residual labrum was resected and additional osteophytes were removed. A reamer that was 4 mm below the templated size was placed by hand in the acetabulum and it was reamed to centralize the acetabulum. It was then reamed up to 2 under the templated size and fluoroscopy was brought in to confirm the position of the reaming and depth of reaming. I reamed 1 under the anticipated size. A trial cup was placed and noted that it was appropriately sized and fluoroscopy confirmed position and depth. The component was open and inserted without difficulty fluoroscopic imaging was used to confirm that the cup had been adequately seated and was well positioned. It was further stabilized with a single screw. Neutral poly liner was placed. The cup was tested and noted to be stable. Attention was then directed to the femur. The femur was gently hyperextended additional capsular release was performed as needed in order to allow adequate visualization of the proximal femur with elevation of the femur. Patient was placed in a hyperextended slightly adducted position with maximum external rotation. Box osteotome was used to check for any residual neck as well as sclerotic bone along the trochanter. [place] pepper was placed in the femur. Additional broaching was performed. Canal finder was used to determine the alignment of the canal and position. Size 1 broach was placed. The canal was then appropriately broached up to the templated size as long as there was adequate stability of the broach and serial advancement of the broach without excessive impingement. Specific attention was directed at avoiding varus attempting to direct the distal aspect of the broach more anteriorly and avoiding excessive anteversion. Trial reduction showed acceptable range of motion, good stability, no posterior impingement, nondenominational of leg length and appropriate lateral shuck. I also hyperflexed the hip and checked that there was no impingement anteriorly and there was good stability with flexion, adduction and internal rotation. Marcaine and Exparel were injected. The stem was placed without difficulty. Repeat trial reduction and x-ray showed acceptable overall position, length, and no evidence of the femoral fracture. Final head was placed. Wound was meticulously irrigated with normal saline. The hip was reduced and additional Exparel and Marcaine were injected. The capsule was closed with interrupted nonabsorbable sutures. The fascia of the tensor was closed with interrupted and running Vicryl. No drain was placed. Any tensor fascia halima muscle that appeared to be contused or injured which was a minimal amount was carefully resected. Capsule around the tensor was injected with Exparel and Marcaine. The skin was closed with barbed stitches for the subcutaneous tissue and skin. We also used surgical glue. The wound was dressed sterilely. Brief Betadine soak was also used and was meticulously irrigated with normal saline. Patient was transferred to recovery room in satisfactory condition. Complications: none Post-operative Condition: stable Disposition: Acute Care Plan for aftercare: The patient will be maintained on a standard total hip replacement protocol with weight bearing as tolerated and anterior hip precautions. The patient will receive Aspirin and sequential compression devices for DVT prophylaxis. The patient will be discharged home when safe for the home environment.
[2022-10-13] MEDS: CEFAZOLIN 2 GM/100 ML PREMIX 100 ML IV ×2 (11:01→18:40)
--- NOTE | 2022-10-13 11:18 | SUR.OPER ---
Patient supine on padded [place] table, one arm on padded arm board at <90, other arm padded and secured with tape across patient's chest, both legs secured in padded traction boots and positioned per surgeon, padded post at patient's groin, pressure points checked and padded.
[2022-10-13] MEDS: BUPIVACAINE LIPOSOME 266 MG/20 ML VIAL INJ (11:23)
[2022-10-13] MEDS: BUPIVACAINE 0.25% (PF) 60 ML, EPINEPHrine 0.3 MG INJ (11:24)
[2022-10-13] MEDS: TRANEXAMIC ACID 1,000 MG VIAL 1000 MG INJ ×2 (11:25→12:59)
--- NOTE | 2022-10-13 13:43 | DI.RAD.S_ITS ---
PROCEDURE: XR HIP W PEL IF DONE LT 2V INDICATIONS: LEFT TOTAL HIP REPLACEMENT TECHNIQUE: AP pelvis and lateral view of the left hip acquired. COMPARISON: [facility], CR, XR PELVIS WITH LATERAL HIP LEFT, 09/26/2022, 16:40. [facility], CR, XR HIP W PEL IF DONE LT 2V, 10/13/2022, 13:18. FINDINGS: 4 intraoperative images demonstrate left hip arthroplasty. IMPRESSION: Left hip arthroplasty. Dictated by: Elida Brush M.D. on 10/13/2022 at 16:26 Approved by: Elida Brush M.D. on 10/13/2022 at 16:29
[2022-10-13] MEDS: LACTATED RINGERS 1,000 ML 100 ML IV (14:33)
[2022-10-13] MEDS: IBUPROFEN 400 MG TABLET PO ×2 (15:08→21:10)
[2022-10-13] MEDS: ACETAMINOPHEN 325 MG TABLET 650 MG PO (15:08)
--- NOTE | 2022-10-13 15:50 | PT.IIE ---
Current Diagnoses Unilateral primary osteoarthritis, left hip (10/13/22) Surgery Performed Operation Date: 10/13/22 10:45 Actual Procedures p Total Hip Arthroplasty/Anterior Approach(Left) - Hanna Rivera MD Surgical History (Last Updated 10/03/22 @ 09:22 by Dora Ross, RN) H/O left wrist surgery (03/2022) H/O right wrist surgery History of hysterectomy History of total right hip replacement Hx of bilateral cataract extraction Hx of bladder repair surgery Hx of colonoscopy with polypectomy (2021) Hx of right mastectomy (~08/20/17) Medical History (Last Updated 10/03/22 @ 09:25 by Dora Ross, RN) Breast cancer, right (~2017) COPD (chronic obstructive pulmonary disease) Depression Easy bruisability Hearing impaired History of COVID-19 (06/2022) HLD (hyperlipidemia) Hypertension Itching Malignant neoplasm of right female breast Neuropathy Osteoarthritis TIA (transient ischemic attack) Wrist fracture, left Physical Therapy Inpatient Evaluation/Re-Eval M1 PT/OT-IP Prior Functional Status Start: 10/13/22 16:46 Freq: NEEDED Status: Active Protocol: Document 10/13/22 15:11 DCW (Rec: 10/13/22 17:02 DCW [id number]) Medical Review Prior Functional Status Medical History Reviewed Yes Diet/Fluid Consistency Regular Communication WNL Mobility and Gait Uses 4WW at baseline for usual mobility Social History Household Members children Living Arrangements House Number of Floors (Floors) One Floor Number of Stairs To Enter/Railing? 2 LEANDRO with L ascending rail Home Equipment Four Wheel Walker M2 PT-IP Current Condition Start: 10/13/22 16:46 Freq: NEEDED Status: Active Protocol: Document 10/13/22 15:11 DCW (Rec: 10/13/22 17:02 DCW [id number]) Physical Therapy Current Condition Current Condition Evaluation Date 10/13/22 Treatment Diagnosis L Anterior DEBRA Onset Date 10/13/22 M3 PT-IP Subjective Start: 10/13/22 16:46 Freq: NEEDED Status: Active Protocol: Document 10/13/22 15:11 DCW (Rec: 10/13/22 17:02 DCW [id number]) Subjective Physical Therapy Visit Type Type Initial Evaluation Visit Start Time 15:11 Visit Stop Time 15:50 Total Visit Minutes 39 Notes Pt supine in bed with two daughters in room with her when PT entered. Agreeable to try to get up with therapy. Notes her pain is just starting up a little bit. 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 Pt's daughter explains her prior DEBRA occurred when pt was vacationing in [place] 10 years ago, fell, and required a R DEBRA. Therapy Pain Assessment Pain When Pain Assessed During Exercise Pain Present Pain Present Pain Reported Location Left Hip Intensity 5 Scale Used Numeric (0 - 10) Description Aching Pain Behaviors Facial Grimacing,Wincing Pain Management Techniques Apply Cold,Re-positioning M4 PT-IP Mobility and Gait Start: 10/13/22 16:46 Freq: NEEDED Status: Active Protocol: Document 10/13/22 15:11 DCW (Rec: 10/13/22 17:02 DCW [id number]) PT-Bed Mobility Assessment Supine to Sit Supine to Sit Minimal Assistance,1 Person Assistance Sit to Supine Sit to Supine Minimal Assistance,1 Person Assistance Scooting Scooting to Edge of Bed Minimal Assistance Scooting Up and Down in Bed Minimal Assistance PT-Transfer Assessment Sit to and From Stand Sit to and from Stand Contact Guard Assistance,1 Person Assistance,Use of Upper Extremities Equipment Transfer Assistive Device Bed Rail,Gait Belt,4 Wheeled Walker Orthotic/Prosthetic Devices or Brace: No Comments Mobility Comments Pt required assistance from Therapist Min Ax1 in order to move left lower extremity when performing bed mobility and scooting EOB. Some wincing and increased pain during movement, however after hetting into sitting, pt felt significantly better. Gait Assessment Gait Gait Assistance Required: Minimum Assistance,1 Person Assist Distance (Feet) 4 Able to Maintain Weight Bearing Status Yes During Gait Assistive Devices Assistive Device Gait Belt,4 Wheeled Walker Orthotic/Prosthetic Devices or Brace: No Gait Deviations General Gait Pattern Antalgic,Decreased Stride Length,Flexed Trunk,Narrow Based Gait,Step-to Gait Factors Limiting Gait Function Factors Limiting Gait Function Decreased Activity Tolerance, Decreased Strength,Limited Range of Motion,Pain Comments Gait Comments Pt went from standing at EOB in room, ambulated forward 4', then backward 4' and returned to sitting EOB. Pt had antalgic, step-to gait pattern with forward trunk flexion. M5 PT-IP Objective Assessments Start: 10/13/22 16:46 Freq: NEEDED Status: Active Protocol: Document 10/13/22 15:11 DCW (Rec: 10/13/22 17:02 [facility] [id number]) Orientation Orientation/Cognition Level of Alertness Alert Orientation Name,Birthday,Month,Year,Place ,Situation Language Function Ability No Deficits Noted Safety Awareness Understands Safety Issues Memory Description No Deficits Noted Gross Range of Motion Lower Extremity ROM Assessment Left Impaired Strength Lower Extremity Strength Assessment Left Impaired M6 PT-IP Treatment Start: 10/13/22 16:46 Freq: NEEDED Status: Active Protocol: Document 10/13/22 15:11 DCW (Rec: 10/13/22 17:02 DC [id number]) Physical Therapy Treatment Exercises Exercises Ankle Pumps,Gluteal Sets,Quad Sets,Heel Slides Education Education Provided Precautions,Weight Bearing Status,Post-Op Packet,Safety M7 PT-IP Assessment and Plan Start: 10/13/22 16:46 Freq: NEEDED Status: Active Protocol: Document 10/13/22 15:11 DCW (Rec: 10/13/22 17:02 [facility] [id number]) PT Summary Assessment and Plan Potential Rehabilitation Potential Good Status of Condition at Evaluation Stable Summary Impairments Pain,ROM,Strength,Bed Mobility ,Transfers,Gait,Activity Tolerance Assessment Summary Pt doing fairly well day-of surgery, pain relatively well controlled except during transfers and bed mobility. Pt able to support herself in standing, did well with weight -shifting and short ambulation in room. Demonstrated good understanding of anterior hip precautions and HEP. Appears to have good support at home, lives with daughter and son-in -law. Will likely be safe to return home instead of SNF for recovery as long as she can demonstrate increased tolerance for gait and a trial on stairs to ensure she is safe to get back into her home . Pt quite fatigued by end of session, returned to bed with new warm blanket, call rosas within reach, and daughters remained in room. Goals Bed Mobility Goal Standby Assistance Transfer Goal Standby Assistance Gait Goal Standby Assistance,Four Wheel Walker Gait Distance 100 Other Goals Ascend/descend 3 steps SBA using L ascending rail Days to Meet Goals 3 Frequency of Treatment Frequency Of Treatment Twice a Day Treatment Plan Physical Therapy Treatment Plan Bed Mobility Training,Transfer Training,Gait Training, Therapeutic Exercise,Post Op Education,Discharge Planning Other Recommendations and Next Treatment Gait and stair training, Focus review HEP and hip precautions Precautions Anterior Hip Precautions No Hip Extension,No Hip External Rotation Weight Bearing Status Weight Bearing Status Weight Bear as Tolerated Recommendations To Nursing Amount of Assist Needed Standby Assistance,1 Person Assist Discharge Recommendations PT Discharge Recommendations Home with Assistance, Outpatient PT Transportation Needs at Discharge Private Vehicle
[2022-10-13] MEDS: OXYCODONE IR 5 MG TABLET PO (16:07)
[2022-10-13] MEDS: ASPIRIN EC 81 MG TABLET PO (20:05)
[2022-10-13] MEDS: diphenhydrAMINE 25 MG TABLET 50 MG PO (20:05)
[2022-10-13] MEDS: lisinopriL 10 MG TABLET PO (20:06)
[2022-10-13] MEDS: DOCUSATE 100 MG CAPSULE PO (20:06)
[2022-10-14] MEDS: CEFAZOLIN 2 GM/100 ML PREMIX 100 ML IV (01:13)
[2022-10-14] MEDS: IBUPROFEN 400 MG TABLET PO ×6 (01:13→21:33)
[2022-10-14] MEDS: ACETAMINOPHEN 325 MG TABLET 650 MG PO ×4 (01:15→21:27)
[2022-10-14] MEDS: OXYCODONE IR 10 MG TABLET PO (01:51)
[2022-10-14 08:00] VITALS: BP 143/59; PULSE 67; RESP 17; TEMP 36.6; O2SAT 97
--- NOTE | 2022-10-14 08:25 | PT.IPTN ---
Current Diagnoses Unilateral primary osteoarthritis, left hip (10/14/22) Surgery Performed Operation Date: 10/13/22 10:45 Actual Procedures p Total Hip Arthroplasty/Anterior Approach(Left) - Hanna Rivera MD Physical Therapy Treatment Note M2 PT-IP Current Condition Start: 10/13/22 16:46 Freq: NEEDED Status: Active Protocol: Document 10/13/22 15:11 DCW (Rec: 10/13/22 17:02 DCW [id number]) Physical Therapy Current Condition Current Condition Evaluation Date 10/13/22 Treatment Diagnosis L Anterior DEBRA Onset Date 10/13/22 M3 PT-IP Subjective Start: 10/13/22 16:46 Freq: NEEDED Status: Active Protocol: Document 10/14/22 15:00 TS (Rec: 10/14/22 09:47 TS [id number]) Subjective Physical Therapy Visit Type Type Treatment Note Visit Start Time 08:45 Visit Stop Time 09:25 Total Visit Minutes 40 Notes Pt's son in room. Physical Therapy Visit Comments Patient Comments Pt resting in bed, reports decreased pain and does not currently believe she needs her oxycodone before session. Pt would like to stay one more night in hospital due to going home after one night with previous wrist surgery and being in alot of pain. M4 PT-IP Mobility and Gait Start: 10/13/22 16:46 Freq: NEEDED Status: Active Protocol: Document 10/14/22 15:00 TS (Rec: 10/14/22 09:47 TS [id number]) PT-Bed Mobility Assessment Supine to Sit Supine to Sit Contact Guard Assistance Sit to Supine Sit to Supine Standby Assistance Scooting Scooting to Edge of Bed Contact Guard Assistance Scooting Up and Down in Bed Minimal Assistance PT-Transfer Assessment Sit to and From Stand Sit to and from Stand Contact Guard Assistance,1 Person Assistance,Use of Upper Extremities Equipment Transfer Assistive Device Bed Rail,Gait Belt,Front Wheeled Walker,4 Wheeled Walker Orthotic/Prosthetic Devices or Brace: No Comments Mobility Comments Pt CGA for supine to sit for uprighting trunk, BUE support on handrails for assist. Scooted EOB CGA with BUE support on handrails, cues for feet flat on floor. Pt maintained good midline in sitting with no UE support. Sit to stand x1 w/FWW CGA, cues for handplacement on FWW and upright posture. Pt ambulated in room ~30' CGA, some swaying and flexed posture, pt felt weak and fatigue, required rest break on EOB. Sit to stand x1 4WW CGA, requried cues for breaks and management to stair in room. Pt attempted stair x1, could not perform safely with counter support/Leland from therapist. Sit to supine SBA with BUE suppport. Leland x2 for scooting to HOB. Pt was left in bed with son in room, call light nearby. Gait Assessment Gait Gait Assistance Required: Contact Guard Assist,1 Person Assist Distance (Feet) 30 Able to Maintain Weight Bearing Status Yes During Gait Assistive Devices Assistive Device Gait Belt,4 Wheeled Walker Orthotic/Prosthetic Devices or Brace: No Gait Deviations General Gait Pattern Antalgic,Decreased Stride Length,Flexed Trunk,Narrow Based Gait,Step-to Gait Comments Gait Comments See mobility comments. Stair Climbing Assessment Comments Stair Climbing Comments Unable to safely at this time with RUE rail support and Leland from therapist in room. PT-Balance Assessment Sitting Balance and Reactions Static Sitting Balance Ability Normal Dynamic Sitting Balance Ability Good Standing Balance and Reactions Static Standing Balance Ability Good Dynamic Standing Balance Ability Fair M5 PT-IP Objective Assessments Start: 10/13/22 16:46 Freq: NEEDED Status: Active Protocol: Document 10/13/22 15:11 DCW (Rec: 10/13/22 17:02 DCW [id number]) Orientation Orientation/Cognition Level of Alertness Alert Orientation Name,Birthday,Month,Year,Place ,Situation Language Function Ability No Deficits Noted Safety Awareness Understands Safety Issues Memory Description No Deficits Noted Gross Range of Motion Lower Extremity ROM Assessment Left Impaired Strength Lower Extremity Strength Assessment Left Impaired M6 PT-IP Treatment Start: 10/13/22 16:46 Freq: NEEDED Status: Active Protocol: Document 10/14/22 15:00 TS (Rec: 10/14/22 09:47 TS [id number]) Physical Therapy Treatment Exercises Exercises Ankle Pumps,Gluteal Sets,Quad Sets,Heel Slides Education Education Provided Precautions,Weight Bearing Status,Post-Op Packet,Safety M7 PT-IP Assessment and Plan Start: 10/13/22 16:46 Freq: NEEDED Status: Active Protocol: Document 10/14/22 15:00 TS (Rec: 04/07/23 09:47 TS [id number]) PT Summary Assessment and Plan Potential Rehabilitation Potential Good Status of Condition at Evaluation Stable Summary Impairments Pain,ROM,Strength,Bed Mobility ,Transfers,Gait,Activity Tolerance Assessment Summary Pt able to recall 1/2 precautions. Pt progressed supine to sit to CGA this session and SBA for sit to supine. Pt continues to be CGA for sit to stand with FWW/4WW , flexes posture and requires cues for placment of BUE on walker. She progressed her ambulation distance to 30' this session CGA, pt has decreased activity tolerance and fatigues in LEs requiring rest break before stairs. Attempted stair x1 in room with step stool and counter support/Leland from therapist, pt unsafe at this time. PT would recommend home with 30/01 assist at this time. Pt has daughter and son-in-law at home 30/01 and can assist with needs. Will see pt in afternoon if still in hospital for attempting 3 stairs. Goals Bed Mobility Goal Standby Assistance Transfer Goal Standby Assistance Gait Goal Standby Assistance,Four Wheel Walker Gait Distance 100 Other Goals Ascend/descend 3 steps SBA using L ascending rail Days to Meet Goals 3 Frequency of Treatment Frequency Of Treatment Twice a Day Treatment Plan Physical Therapy Treatment Plan Bed Mobility Training,Transfer Training,Gait Training, Therapeutic Exercise,Post Op Education,Discharge Planning Other Recommendations and Next Treatment Gait and stair training, Focus review HEP and hip precautions Precautions Anterior Hip Precautions No Hip Extension,No Hip External Rotation Weight Bearing Status Weight Bearing Status Weight Bear as Tolerated Recommendations To Nursing Amount of Assist Needed 1 Person Assist Discharge Recommendations PT Discharge Recommendations Home with Assistance, Outpatient PT Transportation Needs at Discharge Private Vehicle
[2022-10-14 09:38] VITALS: BP 143/59; PULSE 67
[2022-10-14] MEDS: SERTRALINE 50 MG TABLET PO (09:38)
[2022-10-14] MEDS: lisinopriL 10 MG TABLET PO (09:38)
[2022-10-14] MEDS: ASPIRIN EC 81 MG TABLET PO ×2 (09:38→21:30)
[2022-10-14] MEDS: DOCUSATE 100 MG CAPSULE PO ×2 (09:38→21:30)
[2022-10-14] MEDS: diphenhydrAMINE 25 MG TABLET 50 MG PO ×2 (09:39→21:30)
--- NOTE | 2022-10-14 10:44 | P.PN_ITS ---
Subjective Subjective Date Patient Seen: 10/14/22 Time Patient Seen: 10:00 Interval history: Patient is awake sitting up in bed this morning with family member at bedside. She states she is doing well and her pain has been well managed with medication. She does not want much oxycodone because she is concerned about getting ?loopy?. She states she has been able to get up to the commode with no issues. Plans to work with Physical therapy later today to practice stairs she has 3 stairs to enter her 1 level home. Denies chest pain, shortness of breath. Exam Vital Signs (past 8 hours): - 10/14/22 08:00 10/14/22 09:38 Temperature 97.8 F Pulse Rate 67 67 Respiratory Rate 17 Blood Pressure 143/59 H 143/59 H Pulse Oximetry 97 Oxygen Flow Rate 0 Oxygen Delivery Method Room Air Oxygen Flow Rate 0 Narrative Exam Narrative: Pleasant 82-year-old female. Awake, alert, and oriented. Left hip intraoperative bandage clean, dry, and intact. Strength intact to bilateral l ower extremities. SCDs intact. Bilateral calves soft, compressible, nontender with no palpable cords or masses. Objective Labs 10/14/22 06:30 Labs: Laboratory Results - last 24 hr 10/14/22 06:30 Hgb 8.0 L Hct 24.0 L PFSH Medical History Breast cancer, right (~2017) COPD (chronic obstructive pulmonary disease) Depression Easy bruisability Hearing impaired History of COVID-19 (06/2022) HLD (hyperlipidemia) Hypertension Itching Malignant neoplasm of right female breast Neuropathy Osteoarthritis TIA (transient ischemic attack) Wrist fracture, left Surgical History H/O left wrist surgery (03/2022) H/O right wrist surgery History of hysterectomy History of total right hip replacement Hx of bilateral cataract extraction Hx of bladder repair surgery Hx of colonoscopy with polypectomy (2021) Hx of right mastectomy (~08/20/17) Social History household members: children Smoking Status: Former smoker alcohol intake: current Assessment & Plan Post-op Postoperative Procedures: Procedures Operation Date: 10/13/22 10:45 Actual Procedure Side Surgeon p Total Hip Arthroplasty/Anterior Approach Left Hanna Rivera MD Postoperative day: 1 Postoperative status: doing well Postoperative status narrative: Patient is progressing as expected after left total hip arthroplasty, anterior approach. Postoperative plan narrative: Plan to stay 1 more overnight as patient has had some lightheadedness when getting out of bed and hemoglobin 8.0 this morning. Pain has been well controlled with medication. Plan to discharge home when safe and able, hopefully tomorrow. Postoperative medications sent to patient's pharmacy today.
[2022-10-14 12:00] VITALS: BP 114/87; PULSE 63; RESP 17; TEMP 36.4; O2SAT 98
--- NOTE | 2022-10-14 13:09 | PT.IPTN ---
Current Diagnoses Unilateral primary osteoarthritis, left hip (10/14/22) Surgery Performed Operation Date: 10/13/22 10:45 Actual Procedures p Total Hip Arthroplasty/Anterior Approach(Left) - Hanna Rivera MD Physical Therapy Treatment Note M2 PT-IP Current Condition Start: 10/13/22 16:46 Freq: NEEDED Status: Active Protocol: Document 10/13/22 15:11 DCW (Rec: 10/13/22 17:02 DCW [id number]) Physical Therapy Current Condition Current Condition Evaluation Date 10/13/22 Treatment Diagnosis L Anterior DEBRA Onset Date 10/13/22 M3 PT-IP Subjective Start: 10/13/22 16:46 Freq: NEEDED Status: Active Protocol: Document 10/14/22 14:00 SW (Rec: 10/14/22 14:42 SW [id number]) Subjective Physical Therapy Visit Type Type Treatment Note Visit Start Time 13:09 Visit Stop Time 13:47 Total Visit Minutes 38 Physical Therapy Visit Comments Patient Comments Pt resting in bed, agreeable to PT session. Reports fatigue , minimal pain, expressed she wants to limit use of pain medication. Patient declined using the stairs with Bilateral handrails, agreed to attempt step in room. M4 PT-IP Mobility and Gait Start: 10/13/22 16:46 Freq: NEEDED Status: Active Protocol: Document 10/14/22 14:00 SW (Rec: 10/14/22 14:42 SW [id number]) PT-Bed Mobility Assessment Supine to Sit Supine to Sit Contact Guard Assistance Sit to Supine Sit to Supine Contact Guard Assistance Scooting Scooting to Edge of Bed Contact Guard Assistance Scooting Up and Down in Bed Minimal Assistance PT-Transfer Assessment Sit to and From Stand Sit to and from Stand Contact Guard Assistance,1 Person Assistance,Use of Upper Extremities Equipment Transfer Assistive Device Bed Rail,Gait Belt,Front Wheeled Walker,4 Wheeled Walker Orthotic/Prosthetic Devices or Brace: No Comments Mobility Comments PT required BUE use of handrails for assist with bed mobility. Sit to stand required Leland and BUE support on bed. Required repeat VC for upright posture. Gait Assessment Gait Gait Assistance Required: Contact Guard Assist,1 Person Assist Distance (Feet) 10 Able to Maintain Weight Bearing Status Yes During Gait Assistive Devices Assistive Device Gait Belt,4 Wheeled Walker Orthotic/Prosthetic Devices or Brace: No Gait Deviations General Gait Pattern Antalgic,Decreased Stride Length,Flexed Trunk,Narrow Based Gait,Step-to Gait Factors Limiting Gait Function Factors Limiting Gait Function Decreased Activity Tolerance, Decreased Strength,Limited Range of Motion,Pain Comments Gait Comments See mobility comments Stair Climbing Assessment Comments Stair Climbing Comments Unable to safely at this time with RUE rail support and Leland from therapist in room. PT-Balance Assessment Sitting Balance and Reactions Static Sitting Balance Ability Normal Dynamic Sitting Balance Ability Good Standing Balance and Reactions Static Standing Balance Ability Good Dynamic Standing Balance Ability Fair M5 PT-IP Objective Assessments Start: 10/13/22 16:46 Freq: NEEDED Status: Active Protocol: Document 10/13/22 15:11 DCW (Rec: 10/13/22 17:02 DCW [id number]) Orientation Orientation/Cognition Level of Alertness Alert Orientation Name,Birthday,Month,Year,Place ,Situation Language Function Ability No Deficits Noted Safety Awareness Understands Safety Issues Memory Description No Deficits Noted Gross Range of Motion Lower Extremity ROM Assessment Left Impaired Strength Lower Extremity Strength Assessment Left Impaired M6 PT-IP Treatment Start: 10/13/22 16:46 Freq: NEEDED Status: Active Protocol: Document 10/14/22 14:00 SW (Rec: 10/14/22 14:42 SW [id number]) Physical Therapy Treatment Education Education Provided Precautions,Weight Bearing Status,Post-Op Packet,Safety M7 PT-IP Assessment and Plan Start: 10/13/22 16:46 Freq: NEEDED Status: Active Protocol: Document 10/14/22 14:00 SW (Rec: 10/14/22 14:42 SW [id number]) PT Summary Assessment and Plan Potential Rehabilitation Potential Good Status of Condition at Evaluation Stable Summary Impairments Pain,ROM,Strength,Bed Mobility ,Transfers,Gait,Activity Tolerance Assessment Summary Pt able to recall 1/2 precations (ER). Attempted stair step in room, with bedrail and therapist assist, unable to safely ambulate single step. Ambulated x10 ft with vc for WBOS and upright posture. Pt seemed a little confused at times, patient denied dizziness or feelings of light headed. Patient left with call light in reach, SCD clare EDWARDS, RN notified. Goals Bed Mobility Goal Standby Assistance Transfer Goal Standby Assistance Gait Goal Standby Assistance,Four Wheel Walker Gait Distance 100 Other Goals Ascend/descend 3 steps SBA using L ascending rail Days to Meet Goals 3 Frequency of Treatment Frequency Of Treatment Twice a Day Treatment Plan Physical Therapy Treatment Plan Bed Mobility Training,Transfer Training,Gait Training, Therapeutic Exercise,Post Op Education,Discharge Planning Other Recommendations and Next Treatment Gait and stair training, Focus review HEP and hip precautions Precautions Anterior Hip Precautions No Hip Extension,No Hip External Rotation Weight Bearing Status Weight Bearing Status Weight Bear as Tolerated Recommendations To Nursing Amount of Assist Needed 1 Person Assist Discharge Recommendations PT Discharge Recommendations Home with 30/01 Assist Available,Home Health Transportation Needs at Discharge Private Vehicle
[2022-10-14 15:00] VITALS: BP 112/43; PULSE 67; RESP 17; TEMP 36.5; O2SAT 97
--- NOTE | 2022-10-14 15:14 | CM.DANOTE ---
Initial DCP Assessment Note Pt is an 82 yo female, resident of [place], now POD#1 Total Hip Arthroplasty/Anterior Approach by Dr Rivera PCP: Johnathan Zhu Payer: [facility] Patient lives with family and has planned to return home w/family to assist. Two daughters present at bedside yesterday POD0 and available to watch patient work w/PT, agreeable to patient returning home Therapy team recommending home w/family and Home health- will plan to discuss w/patient and family Patient staying this evening, likely discharge home w/family and HH, if agreeable, tomorrow 4.03.01 CM team following closely for coordination of DCP- likely home w/family and HH ROSHNI Elmore Discharge Planning/Care Management CM Discharge Assessment Start: 10/14/22 15:06 Freq: Status: Active Protocol: Document 10/14/22 15:06 ANDREEA (Rec: 10/14/22 15:13 ANDREEA [id number]) Discharge Planning Assessment Assigned Sander And Buffer ROSHNI Aviles DPOA/Assigned Designee Name Eli (daughter) Contact Information [phone] Advance Directives? Yes Advance Directives on File Yes History Provided By Patient,Family Member,Medical Record Prior Living Arrangements House Household Members children Type of transporation used prior to Relies on Others admit Independent with ADL's Yes: Uses 4ww at baseline Is patient alert and oriented? Yes Patient/Family Preference Home with Home Health Barriers to Discharge Yes Comment Patient cannot tolerate stair climb today and has had some lightheadedness with getting out of bed. Likely discharge tomorrow w/family, patient would benefit from HH PT if agreeable - will plan to discuss dispo options with patient tomorrow and review agency list if patient agreeable Discharge Plan Home with Home Health Transportation Arrangement Family Referrals Initiated Home Health Additional Comment If patient agreeable
[2022-10-14 19:20] VITALS: BP 116/46; BP 124/45; PULSE 69; RESP 17; TEMP 36.7; O2SAT 97
[2022-10-14 21:32] VITALS: BP 116/46; PULSE 69
[2022-10-15 02:00] VITALS: BP 114/44; PULSE 65; RESP 18; TEMP 36.3; O2SAT 95
[2022-10-15] MEDS: IBUPROFEN 400 MG TABLET PO ×5 (06:54→20:51)
[2022-10-15] MEDS: ACETAMINOPHEN 325 MG TABLET 650 MG PO ×3 (06:55→19:29)
--- NOTE | 2022-10-15 08:49 | PT-IP ANOTE ---
Per nursing pt not appropriate at this time due to low BP. Will check back in afternoon.
[2022-10-15 09:00] VITALS: BP 105/42; PULSE 66; RESP 17; TEMP 36.2; O2SAT 96
[2022-10-15] MEDS: DOCUSATE 100 MG CAPSULE PO ×2 (10:10→20:51)
[2022-10-15] MEDS: OXYBUTYNIN 5 MG ER TAB PO (10:10)
[2022-10-15] MEDS: SERTRALINE 50 MG TABLET PO (10:10)
[2022-10-15] MEDS: ASPIRIN EC 81 MG TABLET PO ×2 (10:11→20:51)
--- NOTE | 2022-10-15 10:57 | P.DS_ITS ---
History of Present Illness History of Present Illness Date Patient Seen: 10/15/22 Time Patient Seen: 10:58 Chief complaint: Left hip pain s/p left DEBRA Narrative: Patient is complaining of mild left hip pain this morning. Her biggest concern is that she ?passed out? this morning when sitting in a chair. She has a history of passing out as well as a history of chronic anemia. She was taking iron prior to surgery. Her daughter is at bedside. She is somewhat dizzy and lightheaded now, but improved from earlier today. Plan is to DC to SNF. Discharge Providers Provider Date of admission: 10/14/22 12:27 Discharge Date: 10/15/22 Primary care physician: Johnathan Zhu MD Consults: 10/13/22 07:10 Consult to Anesthesiology Routine Comment: Consulting Provider: Anesthesiologist Reason for consultation: Regional block for post operative pain control 10/13/22 13:43 Consult to Discharge Planning Routine Comment: Consult to Physical Therapy Evaluate & Treat Comment: Physician Instructions: post op DEBRA protocol Discharge provider: Radha Bolden PA-C Summary Hospital Course Discharge Diagnosis: -left hip osteoarthritis -orthostatic hypotension -acute on chronic anemia Hospital Course: Operative Date/Time/Diagnoses Date of procedure: 10/13/22 Time of procedure: 10:55 Procedure & Clinicians Procedure: Left total hip arthroplasty anterior approach Same procedure as scheduled: Yes Indications: The patient has had progressively worsening left hip pain with radiographic changes consistent with arthritis. Non-operative management has failed and the patient has requested total hip replacement. The risks, benefits and alternatives to surgery were discussed with the patient prior to proceeding. Risks discussed included, but were not limited to, failure to relieve pain, leg length discrepancy, dislocation, stiffness, infection, nerve damage, deep venous thrombosis, pulmonary embolism, stroke, coma, heart attack, permanent paralysis and , as well as the potential need for eventual revision of the prosthetic. Surgeon: Hanna Rivera Cutter Operator Brick: Sandro Blevins Anesthesia Type: Spinal Operative Notes Findings: Severe left hip osteoarthritis, adequate stability Closure Type: primary Specimen(s): none sent Prosthetic devices, grafts, tissues, transplants, or devices: Rivera and nephew anthology standard offset size 8, 52 mm R3 cup, 36 x 52 mm neutral poly liner, 36 x -3 cobalt femoral head Estimated Blood Loss (mL): 200 Blood products transfused: none Status at Discharge Cognitive/behavioral status at discharge: at baseline, oriented Functional status at discharge: uses cane/walker Overall status at discharge: patient is progressing back to baseline Exam Vital Signs (past 8 hours): - 10/15/22 09:00 Temperature 97.1 F L Pulse Rate 66 Respiratory Rate 17 Blood Pressure 105/42 L Pulse Oximetry 96 Oxygen Flow Rate 0 Oxygen Delivery Method Room Air Oxygen Flow Rate 0 Narrative Exam Narrative: Pleasant 82-year-old female, resting comfortably in bed, no acute distress. Her daughter is at bedside. Patient is not diaphoretic at the moment. Left anterior hip Aquacel dressing is clean, dry, intact, except 1 small area of pinpoint blood on the proximal end. No surrounding erythema, induration, or benny pus. Bilateral calves are soft and nontender to palpation. Bilateral lower extremity: Motor functions are grossly intact, sensation is grossly intact to light touch. Objective Labs 10/14/22 06:30 PFS Medical History Breast cancer, right (~2017) COPD (chronic obstructive pulmonary disease) Depression Easy bruisability Hearing impaired History of COVID-19 (06/2022) HLD (hyperlipidemia) Hypertension Itching Malignant neoplasm of right female breast Neuropathy Osteoarthritis TIA (transient ischemic attack) Wrist fracture, left Surgical History H/O left wrist surgery (03/2022) H/O right wrist surgery History of hysterectomy History of total right hip replacement Hx of bilateral cataract extraction Hx of bladder repair surgery Hx of colonoscopy with polypectomy (2021) Hx of right mastectomy (~08/20/17) Social History household members: children Smoking Status: Former smoker alcohol intake: current Discharge Assessment & Plan Assessment and Plan Assessment: -stable status post left total hip arthroplasty, anterior approach -orthostatic hypotension -acute on chronic anemia Plan of Treatment: -mobilize with nursing staff. Weightbearing as tolerated with front wheel walker. Maintain anterior hip precautions x6 weeks -continue with multimodal pain management -aspirin 81 mg b.i.d. x6 weeks for DVT prophylaxis -hold lisinopril until BP is greater than 120/80 -recheck H&H this morning. May need to transfuse if she continues to be symptomatic and hemoglobin is less than 8.0 -DC to SNF today versus tomorrow, depending on medical and ability to mobilize safely Discharge Plan Discharge Plan Patient Disposition: SNF I certify the postop hospital group home care is medically necessary on a continuing basis for any conditions for which he/ she received care during this hospitalization.: Yes The receiving facility has agreed to accept transfer and provide medical treatment.: Yes Discharge orders & Medications Prescriptions: New oxycodone 5 mg capsule 5 mg PO Q4H PRN (Reason: pain) Qty: 42 0RF acetaminophen 325 mg Tablet 650 mg PO Q6H Qty: 120 0RF docusate sodium 100 mg Capsule 100 mg PO BID PRN (Reason: constipation) Qty: 30 0RF aspirin 81 mg Tablet,Delayed Release (Dr/Ec) 81 mg PO BID Qty: 84 0RF ibuprofen 400 mg Tablet 400 mg PO Q4H Qty: 120 0RF Continued sertraline 50 mg Tablet 50 mg PO DAILY Qty: 0 [IRON BUILDER] 2 tab PO BEDTIME Qty: 0 diphenhydramine HCl [Allergy Relief(diphenhydramin)] 25 mg Tablet 50 mg PO BID lisinopril 10 mg Tablet 10 mg PO BID fesoterodine [Toviaz] 4 mg tablet extended release 24 hr 4 mg PO DAILY (DME) walker [facility] [place] See Rx Instructions .Route Qty: 1 0RF Rx Instructions: Platform (forearm) walker Discontinued acetaminophen 325 mg Tablet 650 mg PO DAILY PRN (Reason: Pain (Scale Score 1-3)) aspirin 81 mg Tablet,Delayed Release (Dr/Ec) 81 mg PO BEDTIME Follow up/Referrals: Johnathan Zhu MD [Primary Care Provider] - Hanna Rivera MD [Physician] - As previously scheduled (Follow up w/ Janett Burnett on 10/28/2022 @ 4:00 at [employer] office in [place].) Diet/Activity/Treatments Diet: Diet as Tolerated Activity: Weightbearing as tolerated to left leg. Anterior hip precautions. Cold/Heat Therapy: Ice to hip as needed for pain. Other treatments: Dressing/Wound care: -Keep Aquacell dressing in place until postoperative follow-up office visit. -Okay to shower. Keep wound out of direct water stream. No soaking or submerging until all the scabs fall off (approximately 6 weeks). -No lotions, ointments, or scar creams directly to the incision until the wound is healed (4-6 weeks), -Please call the office if dressing becomes wet, soiled, or saturated. Activities: -Maintain anterior hip precautions x6 weeks. -Walk frequently: approximately 5-10 minutes every hour. -Weight-bearing as tolerated. Use front wheeled walker, and progress to cane when safe. -Continue with home exercises as directed by your physical therapist. -Elevate ?toes above the nose if you have significant swelling in your lower leg. (A wedge pillow is easiest.) -Ice your incision as needed for pain/inflammation/swelling. Protect your skin with a folded pillowcase. Follow-up: -Follow-up with your surgeon or PA in the office in 10-14 days after surgery. -Follow-up with your surgeon 6 weeks postoperatively. Call the office if you have chest pain, shortness of breath, significant swelling that will not resolve with elevating, fever over 101?, significantly worsening pain, or are concerned you might need to go to the Emergency Room. [facility]: [phone] Skin/Wound/Dressing Care Report to your healthcare provider any signs of infection, such as:: chills, fever, night sweats, unusual drainage and unusual redness Dressing: May shower. Leave Aquacel dressing in place until follow up in office. No bathing or otherwise soaking incision. Call the office if the dressing becomes saturated inside. [facility] Reason for rehabilitation: Post-operative therapy Rehab type: Physical therapy Visit Report/Discharge Packet Instructions: DI for Hip Replacement, DI for Prescription Opioid Use Stand Alone Forms: Patient Portal/API, Surgery Discharge Discharge Data Primary Care Provider: Johnathan Zhu Attending Provider: Hanna Rivera Admit Date/Time: 10/14/22 12:27
[2022-10-15] MEDS: diphenhydrAMINE 25 MG TABLET 50 MG PO ×2 (10:58→20:51)
[2022-10-15 13:12] VITALS: BP 151/53; PULSE 76; RESP 16; TEMP 36.2; O2SAT 96
--- NOTE | 2022-10-15 14:02 | CM.DPNOTE ---
DCP Note Patient remains observation status- UR RN Cesar sending to EHR for review Patient has been slow to progress r/t BP issues and low H+H, patient passed out this morning while up in her chair. Therapy has been recommending Home w/family and HH up until today when question of SNF stay comes up Lengthy conversation w/patient and daughter Eli at bedside, reviewed dispo options. Discussed HH vs SNF and observation vs inpatient status Patient cannot afford to pay privately for SNF but would like a referral to [facility] in case status becomes inpatient and [facility] will cover SNF stay If patient remains observation, it is likely that family to take patient home and HH services will be arranged to assist w/ HH RN/PT/OT/ALTERATIONS EXPERT, no agency preference Referral sent to [facility] Plan: Anticipate discharge home w/family on Monday, need HH referral, with a slight chance of discharge to SNF if made inpatient status and has three midnight stay. Need PASRR if SNF JW
[2022-10-15 15:00] VITALS: BP 148/56; PULSE 69; RESP 17; TEMP 36.3; O2SAT 100
--- NOTE | 2022-10-15 15:45 | PT.IPTN ---
Current Diagnoses Unilateral primary osteoarthritis, left hip (10/14/22) Surgery Performed Operation Date: 10/13/22 10:45 Actual Procedures p Total Hip Arthroplasty/Anterior Approach(Left) - Hanna Rivera MD Physical Therapy Treatment Note M2 PT-IP Current Condition Start: 10/13/22 16:46 Freq: NEEDED Status: Active Protocol: Document 10/13/22 15:11 DCW (Rec: 10/13/22 17:02 DCW [id number]) Physical Therapy Current Condition Current Condition Evaluation Date 10/13/22 Treatment Diagnosis L Anterior DEBRA Onset Date 10/13/22 M3 PT-IP Subjective Start: 10/13/22 16:46 Freq: NEEDED Status: Active Protocol: Document 10/15/22 16:13 TS (Rec: 10/15/22 16:28 TS [id number]) Subjective Physical Therapy Visit Type Type Treatment Note Visit Start Time 15:45 Visit Stop Time 16:10 Total Visit Minutes 25 Physical Therapy Visit Comments Patient Comments Pt resting in bed, agreeable to PT session Therapy Pain Assessment Pain When Pain Assessed During Mobility Pain Present Pain Present Pain Reported M4 PT-IP Mobility and Gait Start: 10/13/22 16:46 Freq: NEEDED Status: Active Protocol: Document 10/15/22 16:13 TS (Rec: 10/15/22 16:28 TS [id number]) PT-Transfer Assessment Sit to and From Stand Sit to and from Stand Contact Guard Assistance, Moderate Assistance,1 Person Assistance,Use of Upper Extremities Equipment Transfer Assistive Device Bed Rail,Gait Belt,Front Wheeled Walker Orthotic/Prosthetic Devices or Brace: No Comments Mobility Comments Sit to stand x2 from low chair ModA, required cues for UEs on FWW. Pt ambulated in room CGA ~15' before needing to use commode. Sit to stand from commode CGA, performed stand step pivot transfer back to chair CGA. Gait Assessment Gait Gait Assistance Required: Contact Guard Assist,1 Person Assist Distance (Feet) 15 Able to Maintain Weight Bearing Status Yes During Gait Assistive Devices Assistive Device Gait Belt,Front Wheeled Walker Orthotic/Prosthetic Devices or Brace: No Gait Deviations General Gait Pattern Antalgic,Decreased Stride Length,Flexed Trunk,Narrow Based Gait,Step-to Gait Factors Limiting Gait Function Factors Limiting Gait Function Decreased Activity Tolerance, Decreased Strength,Limited Range of Motion,Pain Comments Gait Comments Pt ambulated in room ~15' CGA, step to gait with flexed trunk. Stair Climbing Assessment Comments Stair Climbing Comments Unsafe for stairs at this time . PT-Balance Assessment Sitting Balance and Reactions Static Sitting Balance Ability Normal Dynamic Sitting Balance Ability Good Standing Balance and Reactions Static Standing Balance Ability Good Dynamic Standing Balance Ability Fair M5 PT-IP Objective Assessments Start: 10/13/22 16:46 Freq: NEEDED Status: Active Protocol: Document 10/13/22 15:11 DCW (Rec: 10/13/22 17:02 DCW [id number]) Orientation Orientation/Cognition Level of Alertness Alert Orientation Name,Birthday,Month,Year,Place ,Situation Language Function Ability No Deficits Noted Safety Awareness Understands Safety Issues Memory Description No Deficits Noted Gross Range of Motion Lower Extremity ROM Assessment Left Impaired Strength Lower Extremity Strength Assessment Left Impaired M6 PT-IP Treatment Start: 10/13/22 16:46 Freq: NEEDED Status: Active Protocol: Document 10/15/22 16:13 TS (Rec: 10/15/22 16:28 TS [id number]) Physical Therapy Treatment Education Education Provided Precautions,Weight Bearing Status,Post-Op Packet,Safety M7 PT-IP Assessment and Plan Start: 10/13/22 16:46 Freq: NEEDED Status: Active Protocol: Document 10/15/22 16:13 TS (Rec: 10/15/22 16:28 TS [id number]) PT Summary Assessment and Plan Potential Rehabilitation Potential Good Status of Condition at Evaluation Stable Summary Impairments Pain,ROM,Strength,Bed Mobility ,Transfers,Gait,Activity Tolerance Assessment Summary Pt performed sit to stand from low chair x2 with ModA and cues for UEs on FWW, pt follows single step instruction ~90% of the time. She ambulated in room 15' before needing to use commode. Sit to stand from commode CGA , stand step pivot transfer back to bed side chair. Pt BP 135/50 this session, vitals appear to be improving. She required more assist for sit to stands from low chair ModA( requested nursing to get larger chair when back to bed) She continues to recall 1/2 precautions (ER) and reduced activity tolerance, could not attempt stairs this session. PT continues to recommend home with 24/7 assist from family and HHPT. Goals Bed Mobility Goal Standby Assistance Transfer Goal Standby Assistance Gait Goal Standby Assistance,Four Wheel Walker Gait Distance 100 Other Goals Ascend/descend 3 steps SBA using L ascending rail Days to Meet Goals 3 Frequency of Treatment Frequency Of Treatment Twice a Day Treatment Plan Physical Therapy Treatment Plan Bed Mobility Training,Transfer Training,Gait Training, Therapeutic Exercise,Post Op Education,Discharge Planning Other Recommendations and Next Treatment Gait and stair training, Focus review HEP and hip precautions . Precautions Anterior Hip Precautions No Hip Extension,No Hip External Rotation Weight Bearing Status Weight Bearing Status Weight Bear as Tolerated Recommendations To Nursing Amount of Assist Needed 1 Person Assist Discharge Recommendations PT Discharge Recommendations Home with 30/01 Assist Available,Home Health Transportation Needs at Discharge Private Vehicle
[2022-10-15 20:00] VITALS: BP 129/56; PULSE 64; RESP 18; TEMP 37.1; O2SAT 97
[2022-10-16] VITALS (8 sets, daily range): BP systolic 111–190; BP diastolic 40–80; PULSE 66–79; RESP 17–22; TEMP 36.6–37.5; O2SAT 94–98
[2022-10-16] MEDS: ACETAMINOPHEN 325 MG TABLET 650 MG PO ×4 (06:22→20:59)
[2022-10-16] MEDS: IBUPROFEN 400 MG TABLET PO ×5 (06:22→21:00)
[2022-10-16] MEDS: DOCUSATE 100 MG CAPSULE PO ×2 (09:28→20:58)
[2022-10-16] MEDS: SERTRALINE 50 MG TABLET PO (09:28)
[2022-10-16] MEDS: OXYBUTYNIN 5 MG ER TAB PO (09:29)
[2022-10-16] MEDS: ASPIRIN EC 81 MG TABLET PO ×2 (09:29→20:58)
--- NOTE | 2022-10-16 10:21 | PT.IPTN ---
Current Diagnoses Unilateral primary osteoarthritis, left hip (10/14/22) Surgery Performed Operation Date: 10/13/22 10:45 Actual Procedures p Total Hip Arthroplasty/Anterior Approach(Left) - Hanna Rivera MD Physical Therapy Treatment Note M2 PT-IP Current Condition Start: 10/13/22 16:46 Freq: NEEDED Status: Active Protocol: Document 10/13/22 15:11 DCW (Rec: 10/13/22 17:02 DCW [id number]) Physical Therapy Current Condition Current Condition Evaluation Date 10/13/22 Treatment Diagnosis L Anterior DEBRA Onset Date 10/13/22 M3 PT-IP Subjective Start: 10/13/22 16:46 Freq: NEEDED Status: Active Protocol: Document 10/16/22 09:42 KS (Rec: 10/16/22 12:04 KS [id number]) Subjective Physical Therapy Visit Type Type Treatment Note Visit Start Time 09:42 Visit Stop Time 10:21 Total Visit Minutes 39 Notes Pts daughter present during treatment. Physical Therapy Visit Comments Patient Comments Pt resting in bed, agreeable to PT session Therapy Pain Assessment Pain When Pain Assessed During Mobility Pain Present Pain Present Pain Reported M4 PT-IP Mobility and Gait Start: 10/13/22 16:46 Freq: NEEDED Status: Active Protocol: Document 10/16/22 09:42 KS (Rec: 10/16/22 12:04 KS [id number]) PT-Bed Mobility Assessment Supine to Sit Supine to Sit Minimal Assistance,1 Person Assistance,Head of Bed Elevated Scooting Scooting to Edge of Bed Minimal Assistance PT-Transfer Assessment Sit to and From Stand Sit to and from Stand Moderate Assistance,1 Person Assistance,Use of Upper Extremities Equipment Transfer Assistive Device Bed Rail,Gait Belt,Front Wheeled Walker Orthotic/Prosthetic Devices or Brace: No Transfers Transfer Destination Chair,Wheelchair Transfer Technique Stand Step Pivot Transfer Ability Level of Assist Minimal Assistance,Moderate Assistance,1 Person Assistance ,Use of Upper Extremities Comments Mobility Comments Pt in bed upon arrival and agreeable to ambulate. Daughter in room for initiation of caregiver training. Min A for bed mobility, Mod A for sit<>stand w/ FWW and cues for sequencing. Pt ambulated ~30 ft in room w/ FWW before transferring to w/c for transport to practice stairs. Pt was only able to ascend/ descend 1 step due to increase in pain and weakness. W/c back to room, ambulated ~10 ft to shower chair w/ FWW Min A. Left w/ CHAIRMAN and daughter. Gait Assessment Gait Gait Assistance Required: Minimum Assistance,1 Person Assist Distance (Feet) 30 Able to Maintain Weight Bearing Status Yes During Gait Assistive Devices Assistive Device Gait Belt,Front Wheeled Walker Orthotic/Prosthetic Devices or Brace: No Gait Deviations General Gait Pattern Antalgic,Decreased Stride Length,Flexed Trunk,Narrow Based Gait,Step-to Gait Factors Limiting Gait Function Factors Limiting Gait Function Decreased Activity Tolerance, Decreased Strength,Limited Range of Motion,Pain Comments Gait Comments 30 ft w/ FWW Min A w/ step to gait. Stair Climbing Assessment Evaluation Level of Assist On Stairs Moderate Assistance,2 Person Assistance Devices Stair Climbing Assistive Devices Straight Cane,Left Railing Technique/Endurance Stair Climbing Direction Ascend and Descend Stair Climbing Technique Step to Step Number of Steps Climbed 1 Stair Climbing Set # Repetitions (reps) 1 Comments Stair Climbing Comments Completed 1 step w/ L rail and SPC in RUE. Afterwards states she prefers to go up and down stairs sideways using both hands on hand rail, but does not feel able to complete again at this time. Needs cues for proper sequencing. PT-Balance Assessment Sitting Balance and Reactions Static Sitting Balance Ability Normal Dynamic Sitting Balance Ability Good Standing Balance and Reactions Static Standing Balance Ability Good Dynamic Standing Balance Ability Fair Device Used FWW M5 PT-IP Objective Assessments Start: 10/13/22 16:46 Freq: NEEDED Status: Active Protocol: Document 10/13/22 15:11 DCW (Rec: 10/13/22 17:02 DCW [id number]) Orientation Orientation/Cognition Level of Alertness Alert Orientation Name,Birthday,Month,Year,Place ,Situation Language Function Ability No Deficits Noted Safety Awareness Understands Safety Issues Memory Description No Deficits Noted Gross Range of Motion Lower Extremity ROM Assessment Left Impaired Strength Lower Extremity Strength Assessment Left Impaired M6 PT-IP Treatment Start: 10/13/22 16:46 Freq: NEEDED Status: Active Protocol: Document 10/16/22 09:42 KS (Rec: 10/16/22 12:04 KS [id number]) Physical Therapy Treatment Education Education Provided Precautions,Weight Bearing Status,Post-Op Packet,Safety Other Treatments Other Treatment Performed Initiated caregiver training w / daughter Eli M7 PT-IP Assessment and Plan Start: 10/13/22 16:46 Freq: NEEDED Status: Active Protocol: Document 10/16/22 09:42 KS (Rec: 10/16/22 12:04 KS [id number]) PT Summary Assessment and Plan Potential Rehabilitation Potential Good Status of Condition at Evaluation Stable Summary Impairments Pain,ROM,Strength,Bed Mobility ,Transfers,Gait,Activity Tolerance Progress Towards Goals Slow Progress due to Pain,Slow Progress due to Medical Issues,Slow Progress due to Activity Tolerance Assessment Summary Able to ambulate 30 ft w/ FWW Min A and complete 1 step today but unable to finish stair training. Expressed dizziness following transfer to shower chair. CHAIRMAN present and aware. Needs further PT to complete caregiver training and stair training. She prefers ascending/descending stairs sideways with BUE using L hand rail. Goals Bed Mobility Goal Standby Assistance Transfer Goal Standby Assistance Gait Goal Standby Assistance,Four Wheel Walker Gait Distance 100 Other Goals Ascend/descend 3 steps SBA using L ascending rail Days to Meet Goals 3 Frequency of Treatment Frequency Of Treatment Twice a Day Treatment Plan Physical Therapy Treatment Plan Bed Mobility Training,Transfer Training,Gait Training, Therapeutic Exercise,Post Op Education,Discharge Planning Other Recommendations and Next Treatment Gait and stair training, Focus review HEP and hip precautions . Precautions Anterior Hip Precautions No Hip Extension,No Hip External Rotation Weight Bearing Status Weight Bearing Status Weight Bear as Tolerated Recommendations To Nursing Amount of Assist Needed 1 Person Assist Discharge Recommendations PT Discharge Recommendations Home with 30/01 Assist Available,Home Health Transportation Needs at Discharge Private Vehicle
--- NOTE | 2022-10-16 10:56 | CM.DPNOTE ---
Addendum entered by ROSHNI Gallardo 10/16/22 11:17: ADD: According to Huyen MORENO- TIFFANIE RN follow up expected October 20, daughter will receive a welcome call w/in 48 hours to discuss this. ANDREEA Addendum entered by ROSHNI Gallardo 10/16/22 10:59: ADD: Faxed completed [facility], HH order, demo sheet, H+P and DC Summary to alrin DORAN Original Note: DC Note Discharge order for home w/home health placed by Dr Mitchell this morning EHR has been consulted re status and patient remains observation Discussed above w/daughter and she plans to take patient home this afternoon after another session w/ SUPPLY AND DISTRIBUTION MANAGER arlin MORENO referral placed this morning and arlin MORENO brochure provided to patient and daughter Plan: Discharge home w/family to assist, family to transport, arlin MORENO services to include TIFFANIE RN/PT/OT/ENGLISH TUTOR ANDREEA
--- NOTE | 2022-10-16 13:15 | PT.IPTN ---
Current Diagnoses Unilateral primary osteoarthritis, left hip (10/14/22) Surgery Performed Operation Date: 10/13/22 10:45 Actual Procedures p Total Hip Arthroplasty/Anterior Approach(Left) - Hanna Rivera MD Physical Therapy Treatment Note M2 PT-IP Current Condition Start: 10/13/22 16:46 Freq: NEEDED Status: Active Protocol: Document 10/13/22 15:11 DCW (Rec: 10/13/22 17:02 DCW [id number]) Physical Therapy Current Condition Current Condition Evaluation Date 10/13/22 Treatment Diagnosis L Anterior DEBRA Onset Date 10/13/22 M3 PT-IP Subjective Start: 10/13/22 16:46 Freq: NEEDED Status: Active Protocol: Document 10/16/22 12:56 KS (Rec: 10/16/22 13:38 KS [id number]) Subjective Physical Therapy Visit Type Type Treatment Note Visit Start Time 12:56 Visit Stop Time 13:15 Total Visit Minutes 19 Notes Pts daughter present during treatment. Physical Therapy Visit Comments Patient Comments Pt resting in bed, agreeable to PT session Therapy Pain Assessment Pain When Pain Assessed During Mobility Pain Present Pain Present Pain Reported M4 PT-IP Mobility and Gait Start: 10/13/22 16:46 Freq: NEEDED Status: Active Protocol: Document 10/16/22 12:56 KS (Rec: 10/16/22 13:38 KS [id number]) PT-Bed Mobility Assessment Supine to Sit Supine to Sit Minimal Assistance,1 Person Assistance,Head of Bed Elevated Scooting Scooting to Edge of Bed Minimal Assistance PT-Transfer Assessment Sit to and From Stand Sit to and from Stand Moderate Assistance,1 Person Assistance,Use of Upper Extremities Equipment Transfer Assistive Device Bed Rail,Gait Belt,Front Wheeled Walker Orthotic/Prosthetic Devices or Brace: No Transfers Transfer Destination Chair Transfer Technique pt ambulated Transfer Ability Level of Assist Minimal Assistance,Moderate Assistance,1 Person Assistance ,Use of Upper Extremities Comments Mobility Comments Pt reporting high level of fatigue this PM, but agreeable to ambulate. Min A for bed mobility and Mod A for sit<> Stand w FWW. Able to ambulate ~20 ft in room but then requested to sit due to fatigue. Pt not safe for further stair training at this time unfortunately. Gait Assessment Gait Gait Assistance Required: Minimum Assistance,1 Person Assist Distance (Feet) 20 Able to Maintain Weight Bearing Status Yes During Gait Assistive Devices Assistive Device Gait Belt,Front Wheeled Walker Orthotic/Prosthetic Devices or Brace: No Factors Limiting Gait Function Factors Limiting Gait Function Decreased Activity Tolerance, Decreased Strength,Limited Range of Motion,Pain Comments Gait Comments see mobility section for details. PT-Balance Assessment Sitting Balance and Reactions Static Sitting Balance Ability Normal Dynamic Sitting Balance Ability Good Standing Balance and Reactions Static Standing Balance Ability Fair Dynamic Standing Balance Ability Fair Device Used FWW M5 PT-IP Objective Assessments Start: 10/13/22 16:46 Freq: NEEDED Status: Active Protocol: Document 10/13/22 15:11 DCW (Rec: 10/13/22 17:02 DCW [id number]) Orientation Orientation/Cognition Level of Alertness Alert Orientation Name,Birthday,Month,Year,Place ,Situation Language Function Ability No Deficits Noted Safety Awareness Understands Safety Issues Memory Description No Deficits Noted Gross Range of Motion Lower Extremity ROM Assessment Left Impaired Strength Lower Extremity Strength Assessment Left Impaired M6 PT-IP Treatment Start: 10/13/22 16:46 Freq: NEEDED Status: Active Protocol: Document 10/16/22 12:56 KS (Rec: 10/16/22 13:38 KS [id number]) Physical Therapy Treatment Education Education Provided Precautions,Weight Bearing Status,Post-Op Packet,Safety M7 PT-IP Assessment and Plan Start: 10/13/22 16:46 Freq: NEEDED Status: Active Protocol: Document 10/16/22 12:56 KS (Rec: 10/16/22 13:38 KS [id number]) PT Summary Assessment and Plan Potential Rehabilitation Potential Good Summary Impairments Pain,ROM,Strength,Bed Mobility ,Transfers,Gait,Activity Tolerance Progress Towards Goals Slow Progress due to Pain,Slow Progress due to Medical Issues,Slow Progress due to Activity Tolerance Assessment Summary Unable to progress ot this PM due to weakness and fatigue, but she did ambulate 20 ft w/ FWW. Min A for bed mobility, Mod A for sup<>sit. Not safe to go home at this time, Needs further PT to complete caregiver training and stair training. She prefers ascending/descending stairs sideways with BUE using L hand rail. Goals Bed Mobility Goal Standby Assistance Transfer Goal Standby Assistance Gait Goal Standby Assistance,Four Wheel Walker Gait Distance 100 Other Goals Ascend/descend 3 steps SBA using L ascending rail Days to Meet Goals 3 Frequency of Treatment Frequency Of Treatment Twice a Day Treatment Plan Physical Therapy Treatment Plan Bed Mobility Training,Transfer Training,Gait Training, Therapeutic Exercise,Post Op Education,Discharge Planning Other Recommendations and Next Treatment Gait and stair training, Focus review HEP and hip precautions . Precautions Anterior Hip Precautions No Hip Extension,No Hip External Rotation Weight Bearing Status Weight Bearing Status Weight Bear as Tolerated Recommendations To Nursing Amount of Assist Needed 1 Person Assist Discharge Recommendations PT Discharge Recommendations Home with 30/01 Assist Available,Home Health Transportation Needs at Discharge Private Vehicle
--- NOTE | 2022-10-16 14:19 | PC.NURSE ---
Prior to lunch Pt up to chair with PT and then returned to bed-very dizzy, pale and nauseated. Vomitted and unable to continue with PT at that time and unable to climb 2 stairs which is what she must do to get into her house. H/H is 8. Pt up to chair for lunch and needed to get up to bsc to void - bp 90/44 and 96/[address] Mitchell to report Pt condition and check if she wanted to continue with Pt discharge today or recheck with PT in am.
[2022-10-16] MEDS: LACTATED RINGERS 1,000 ML 125 ML IV (14:41)
[2022-10-16 14:57] LABS: Add Manual Diff / Slide Review NO; Basophils Absolute Auto 0 /uL (0-100); Basophils Percent Auto 0.5 % (0-2); Eosinophils Absolute Auto 400 /uL (0-450); Eosinophils Percent Auto 3.9 % (2-4); Hematocrit 22.3 % (36-46); Hemoglobin 7.5 g/dL (12.0-16.0); Lymphocytes Absolute Auto 600 /uL (1100-4500); Lymphocytes Percent Auto 6.2 % (25-40); Mean Corpuscular HGB Conc 33.8 % (30-36); Mean Corpuscular Hemoglobin 31.5 PG (26-34); Mean Corpuscular Volume 93.2 fL (80-100); Monocytes Absolute Auto 900 /uL (0-900); Monocytes Percent Auto 9.7 % (3-14); Neutrophils Absolute Auto 7200 /uL (1500-7000); Neutrophils Percent Auto 79.7 % (50-75); Platelet Count 186 X10^3/uL (150-400); Red Cell Distribution Width 14.7 % (11.6-14.8)
--- NOTE | 2022-10-16 15:06 | CM.DPNOTE ---
Discharge Planning Note: Received update from patient's nurse Ivy who states patient has been hypotensive and not feeling well this afternoon, 90s/38-44. She notified Dr Mitchell who has ordered fluids and labs. Note Per UR Michela: Patient has been Inpatient since 10/15/22. Spoke with Huyen at [facility] that patient is not discharging today afterall and we will be in touch tomorrow. Plan: When medically cleared, home with [facility]. Gracie Hensley RN/DCP
[2022-10-16 15:13] LABS: Alanine Aminotransferase 9 IU/L (<35); Albumin 2.7 g/dL (3.5-5.0); Albumin Globulin Ratio 1.1 (1.0-2.8); Alkaline Phosphatase 57 U/L (38-126); Aspartate Aminotransferase 24 IU/L (14-36); BUN Creatinine Ratio 22.9 (6-22); Bilirubin Total 0.2 mg/dL (0.2-1.3); Blood Urea Nitrogen 25 mg/dL (7-17); Calcium 8.9 mg/dL (8.4-10.2); Carbon Dioxide 19 mmol/L (22-32); Chloride 100 mmol/L (98-107); Estimated Glomerular Filt Rate 50 mL/min (>60); Globulin 2.4 g/dL (1.7-4.1); Glucose 129 mg/dL (80-110); HEMOLYSIS < 15 (0-50); Potassium 4.3 mmol/L (3.4-5.1); Sodium 129 mmol/L (137-145); Total Protein 5.1 g/dL (6.3-8.2)
[2022-10-16] MEDS: diphenhydrAMINE 25 MG TABLET PO (17:31)
[2022-10-16] MEDS: ONDANSETRON 4 MG ODT PO (17:32)
--- NOTE | 2022-10-16 18:20 | PC.NURSE ---
premed for blood infusion vss pt tolerating well
--- NOTE | 2022-10-16 19:32 | P.CONS_ITS ---
History of Present Illness Consult details Date Patient Seen: 10/16/22 Time Patient Seen: 19:32 Chief complaint: Left hip pain s/p left DEBRA Reason for consult: Status post anemia/orthostatic hypotension Narrative: Autumn Patino is an 82-year-old female with history COPD, depression, HLD, HTN, history of breast cancer, OA, TIA, who was taken to the OR today by Dr. Bermudez orthopedics for left total hip arthroplasty, anterior approach. Status post the patient experienced orthostatic hypotension, anemia and mild hyponatremia. Dr. Schneider graciously requested that the hospitalist Service consult for postoperative issues. At the time of consult patient is resting comfortably in bed 1 unit of blood is infusing, tolerating well. Patient denies chest pain, shortness in breath, headache, changes in vision, difficulty swallowing, speech impairment, weakness, numbness, tingling, head injury, LOC, fever, body aches, chills, cough, recent exposure to illness, abdominal pain, nausea, vomiting, urinary incontinence/retention, dysuria, frequency, urgency, hematuria, bowel changes, constipation, incontinence, melena, rashes, recent changes to medication, illness. Meds Home Medications and Allergies Home Medications Medication Instructions Recorded Confirmed Type sertraline 50 mg tablet 50 mg PO DAILY ##0 12/23/06 10/13/22 History [IRON BUILDER] 2 tab PO BEDTIME ##0 09/04/17 10/13/22 History lisinopril 10 mg tablet 10 mg PO BID 12/06/17 10/13/22 History fesoterodine 4 mg tablet,extended 4 mg PO DAILY 04/01/22 10/13/22 History release 24 hr (Toviaz) walker #1 ea 04/01/22 10/13/22 Rx diphenhydramine HCl 25 mg tablet 50 mg PO BID 10/03/22 10/13/22 History (Allergy Relief (diphenhydramine)) acetaminophen 325 mg tablet 650 mg PO Q6H #120 tabs 10/14/22 Rx aspirin 81 mg tablet,delayed 81 mg PO BID #84 tabs 10/14/22 Rx release ibuprofen 400 mg tablet 400 mg PO Q4H #120 tabs 10/14/22 Rx docusate sodium 100 mg capsule 100 mg PO BID PRN constipation #30 04/08/23 Rx caps oxycodone 5 mg tablet 5 mg PO Q4HR PRN pain #42 tabs 10/16/22 Rx Allergies Allergy/AdvReac Type Severity Reaction Status Date / Time No Known Drug Allergies Allergy Verified 10/13/22 09:01 Review of Systems Review of Systems Narrative: All 12 point systems reviewed with the patient and are negative except otherwise documented. Exam Vital Signs (past 8 hours): - 10/16/22 11:48 10/16/22 16:28 10/16/22 17:48 Temperature 97.8 F 99.5 F 98.2 F Pulse Rate 66 68 75 Respiratory Rate 18 18 20 Blood Pressure 149/56 H 130/51 L 112/41 L Pulse Oximetry 97 94 Oxygen Flow Rate 0 0 10/16/22 18:10 Temperature 98 F Pulse Rate 79 Respiratory Rate 17 Blood Pressure 124/53 L Pulse Oximetry Oxygen Flow Rate Oxygen Delivery Method Room Air Oxygen Flow Rate 0 Narrative Exam Narrative: General: Patient is a well-developed, well-nourished elderly female in no distress at this time. HEENT: Normocephalic, atraumatic, extraocular muscles intact, oral pharynx is clear and mucous membranes are moist. Neck is supple and symmetric, trachea is midline, no adenopathy, no thyroid enlargement, nontender, no masses palpated. Negative for JVD Chest: Normal AP diameter and contour without kyphoscoliosis, no nasal flaring, retractions, or tachypneic labored Lungs: Auscultation of all lung norris are clear without adventitious sounds, wheezes, rhonchi, or rales. Cardio: S1 & S2 with regular rate and rhythm without murmur, rubs, or gallops, no carotid bruit, no cardiac pulsations present. Abdomen: Soft nontender, negative for organomegaly, or masses. Bowel sounds are present in all 4 quadrants without guarding or rebound, no CVA tenderness. Musculoskeletal: Left anterior hip Aquacel dressing is clean, dry, intact, except 1 small area of pinpoint blood on the proximal end.? No surrounding erythema, induration, or benny pus.? Bilateral calves are soft and nontender to palpation.? Bilateral lower extremity:? Motor functions are grossly intact, sensation is grossly intact to light touch. Skin: Warm dry and intact without rashes, ulcerations or petechiae. Neuro: Alert and orientated x3, sensation to touch intact, no gross deficits noted of cranial nerves. Psych: Patient has a well-kept appearance, appropriate affect, mental status attitude thought context and judgment are appropriate for age. Objective Labs 10/16/22 14:50 10/16/22 14:50 Labs: Laboratory Results - last 24 hr 10/16/22 10/16/22 10/16/22 14:50 14:50 15:45 WBC 9.0 RBC 2.40 L Hgb 7.5 L Hct 22.3 L MCV 93.2 MCH 31.5 MCHC 33.8 RDW 14.7 Plt Count 186 Neut % (Auto) 79.7 H Lymph % (Auto) 6.2 L [place] % (Auto) 9.7 Eos % (Auto) 3.9 Baso % (Auto) 0.5 Neut # (Auto) 7200 H Lymph # (Auto) 600 L [place] # (Auto) 900 Eos # (Auto) 400 Baso # (Auto) 0 Sodium 129 L Potassium 4.3 Chloride 100 Carbon Dioxide 19 L BUN 25 H Creatinine 1.09 H Estimated GFR 50 L BUN/Creatinine Ratio 22.9 H Glucose 129 H Calcium 8.9 Total Bilirubin 0.2 AST 24 ALT 9 Alkaline Phosphatase 57 Total Protein 5.1 L Albumin 2.7 L Globulin 2.4 Albumin/Globulin Ratio 1.1 Blood Type O Positive Antibody Screen Negative Crossmatch See Detail [facility] Medical History Breast cancer, right (~2018) COPD (chronic obstructive pulmonary disease) Depression Easy bruisability Hearing impaired History of COVID-19 (06/2022) HLD (hyperlipidemia) Hypertension Itching Malignant neoplasm of right female breast Neuropathy Osteoarthritis TIA (transient ischemic attack) Wrist fracture, left Surgical History H/O left wrist surgery (03/2022) H/O right wrist surgery History of hysterectomy History of total right hip replacement Hx of bilateral cataract extraction Hx of bladder repair surgery Hx of colonoscopy with polypectomy (2021) Hx of right mastectomy (~08/20/17) Family History Father No problems noted. Mother No problems noted. Social History household members: children Tobacco & Substance Use Smoking Status: Former smoker alcohol intake: current Assessment & Plan Assessment & Plan narrative: Autumn Patino is an 82-year-old female with history COPD, depression, HLD, HTN, history of breast cancer, OA, TIA, who was taken to the OR today by Dr. Bermudez orthopedics for left total hip arthroplasty, anterior approach. Status post the patient experienced orthostatic hypotension, anemia and mild hyponatremia. Dr. Schneider graciously requested that the hospitalist Service consult for postoperative issues. Patient will receive fluids, unit of blood, and hold lisinopril -re-evaluate for orthostatic hypotension and anemia, expect resolution of postoperative symptoms in less than 2 midnights. 1. Left total hip arthroplasty, status post orthostatic hypotension, acute. -combination of lisinopril and hypovolemia secondary to surgical procedure likely cause of orthostatic hypotension. -BP at the time of consult 124/53-supine -NS at 125 cc/HR -holding lisinopril -orthostatics q.4 hours while awake 2. Anemia, acute status post total hip arthroplasty, acute -resting comfortably in bed 1 unit of blood is infusing, tolerating well. -asymptomatic -H&H to be completed 30 minutes post infusion -repeat CBC in a.m. -monitor for bleeding, guaiac as needed 3. Hyponatremia, mild, acute, present on admission -Na+ 129 -08/08/22 Na+ 130 -switch to LR to NS at 125 cc/HR -recheck electrolytes in a.m. 4. Malnutrition, mild, acute on chronic, present on admission -BMI 21.8-is likely contributing to orthostatic hypotension -patient's malnutrition places them at high risk for medical and surgical complications in relation to acute illness/chronic illness. This increases the difficulty in complexity of medical management and increases the chances poor outcomes such as mortality and morbidity as well as impaired wound healing, and immune suppression. -dietary consult ordered to evaluate and implement steps to improve caloric intake and nutrition. 5. Hypertension, essential, chronic, present on admission-well controlled -holding lisinopril -BP 124/53 -supine -orthostatics q.4 hours while awake Code status:Full Surrogate decision maker: Daughter Eli TUBBS PCR: Negative DVT/VTE prophylaxis: SCD right only Disposition: Observation expected length of stay less than 2 midnights. I have utilized all available immediate resources to obtain, update, or review the patient's current medications. I confirmed that the patient's advanced care plan is present, Code status is documented and/or surrogate decision maker is listed in the patient's medical record. I have personally reviewed patient's chart notes from PCP, specialists, diagnostic imaging, and laboratory results.
[2022-10-16] MEDS: diphenhydrAMINE 25 MG TABLET 50 MG PO (20:58)
[2022-10-16] MEDS: SODIUM CHLORIDE 0.9% 1,000 ML 125 ML IV (21:01)
[2022-10-16 22:00] LABS: Hemoglobin 8.7 g/dL (12.0-16.0)
[2022-10-16 22:03] LABS: Hematocrit 25.5 % (36-46)
[2022-10-17 00:28] VITALS: O2SAT 97
[2022-10-17 04:00] VITALS: O2SAT 95
[2022-10-17] MEDS: IBUPROFEN 400 MG TABLET PO ×2 (05:09→13:57)
[2022-10-17] MEDS: SODIUM CHLORIDE 0.9% 1,000 ML 125 ML IV (05:10)
[2022-10-17 06:15] LABS: Add Manual Diff / Slide Review NO; Basophils Absolute Auto 0 /uL (0-100); Basophils Percent Auto 0.6 % (0-2); Eosinophils Absolute Auto 900 /uL (0-450); Eosinophils Percent Auto 11.7 % (2-4); Hematocrit 25.6 % (36-46); Hemoglobin 8.9 g/dL (12.0-16.0); Lymphocytes Absolute Auto 1000 /uL (1100-4500); Lymphocytes Percent Auto 13.4 % (25-40); Mean Corpuscular HGB Conc 34.6 % (30-36); Mean Corpuscular Hemoglobin 31.3 PG (26-34); Mean Corpuscular Volume 90.3 fL (80-100); Monocytes Absolute Auto 700 /uL (0-900); Monocytes Percent Auto 10.1 % (3-14); Neutrophils Absolute Auto 4700 /uL (1500-7000); Neutrophils Percent Auto 64.2 % (50-75); Platelet Count 178 X10^3/uL (150-400); Red Blood Cell Count 2.84 X10^6/uL (4.0-5.2); Red Cell Distribution Width 15.9 % (11.6-14.8); White Blood Cell Count 7.4 X10^3/uL (4.5-11.0)
[2022-10-17 06:22] VITALS: BP 164/99; PULSE 73; RESP 20; TEMP 36.6; O2SAT 95
[2022-10-17 06:26] LABS: Alanine Aminotransferase 8 IU/L (<35); Albumin 2.6 g/dL (3.5-5.0); Alkaline Phosphatase 57 U/L (38-126); Aspartate Aminotransferase 24 IU/L (14-36); BUN Creatinine Ratio 22.9 (6-22); Bilirubin Total 0.5 mg/dL (0.2-1.3); Blood Urea Nitrogen 25 mg/dL (7-17); Calcium 9.1 mg/dL (8.4-10.2); Carbon Dioxide 23 mmol/L (22-32); Chloride 102 mmol/L (98-107); Estimated Glomerular Filt Rate 50 mL/min (>60); Globulin 2.5 g/dL (1.7-4.1); Glucose 87 mg/dL (80-110); HEMOLYSIS < 15 (0-50); Potassium 4.3 mmol/L (3.4-5.1); Sodium 129 mmol/L (137-145); Total Protein 5.1 g/dL (6.3-8.2)
--- NOTE | 2022-10-17 07:38 | PM.PNPO.1 ---
Subjective Subjective Date Patient Seen: 10/17/22 Time Patient Seen: 07:38 Interval history: Patient notes pain is mild. Denies fever or chills. No nausea vomiting. Denies shortness of breath or chest pain. No dizziness. Patient lives with her daughter. Otherwise without complaints this morning. Exam Vital Signs (past 8 hours): - 10/16/22 23:41 10/17/22 00:28 10/17/22 04:00 Temperature Pulse Rate Pulse Rate [Orthostatic Lying] 68 Pulse Rate [Orthostatic Sitting] 76 Pulse Rate [Orthostatic Standing] 66 Respiratory Rate Blood Pressure Blood Pressure [Orthostatic Lying] 127/62 Blood Pressure [Orthostatic Sitting] 165/66 H Blood Pressure [Orthostatic Standing] 190/80 H Pulse Oximetry 97 95 Oxygen Delivery Method Room Air Room Air Oxygen Flow Rate 10/17/22 06:22 Temperature 98 F Pulse Rate 73 Pulse Rate [Orthostatic Lying] Pulse Rate [Orthostatic Sitting] Pulse Rate [Orthostatic Standing] Respiratory Rate 20 Blood Pressure 164/99 H Blood Pressure [Orthostatic Lying] Blood Pressure [Orthostatic Sitting] Blood Pressure [Orthostatic Standing] Pulse Oximetry 95 Oxygen Delivery Method Oxygen Flow Rate 0 Oxygen Delivery Method Room Air Oxygen Flow Rate 0 Narrative Exam Narrative: 82-year-old female resting comfortably in bedside chair in no apparent distress. Motor functions intact bilateral lower extremities. Const General: cooperative and comfortable Nutritional Appearance: average body habitus Resp Effort & Inspection: normal respiratory effort and able to speak in complete sentences Objective Labs 10/17/22 05:46 10/17/22 05:46 Labs: Laboratory Results - last 24 hr 10/16/22 10/16/22 10/16/22 14:50 14:50 15:45 WBC 9.0 RBC 2.40 L Hgb 7.5 L Hct 22.3 L MCV 93.2 MCH 31.5 MCHC 33.8 RDW 14.7 Plt Count 186 Neut % (Auto) 79.7 H Lymph % (Auto) 6.2 L [place] % (Auto) 9.7 Eos % (Auto) 3.9 Baso % (Auto) 0.5 Neut # (Auto) 7200 H Lymph # (Auto) 600 L [place] # (Auto) 900 Eos # (Auto) 400 Baso # (Auto) 0 Sodium 129 L Potassium 4.3 Chloride 100 Carbon Dioxide 19 L BUN 25 H Creatinine 1.09 H Estimated GFR 50 L BUN/Creatinine Ratio 22.9 H Glucose 129 H Calcium 8.9 Total Bilirubin 0.2 AST 24 ALT 9 Alkaline Phosphatase 57 Total Protein 5.1 L Albumin 2.7 L Globulin 2.4 Albumin/Globulin Ratio 1.1 Blood Type O Positive Antibody Screen Negative Crossmatch See Detail 10/16/22 10/17/22 10/17/22 21:35 05:46 05:46 WBC 7.4 RBC 2.84 L Hgb 8.7 L 8.9 L Hct 25.5 L 25.6 L MCV 90.3 MCH 31.3 MCHC 34.6 RDW 15.9 H Plt Count 178 Neut % (Auto) 64.2 Lymph % (Auto) 13.4 L [place] % (Auto) 10.1 Eos % (Auto) 11.7 H Baso % (Auto) 0.6 Neut # (Auto) 4700 Lymph # (Auto) 1000 L [place] # (Auto) 700 Eos # (Auto) 900 H Baso # (Auto) 0 Sodium 129 L Potassium 4.3 Chloride 102 Carbon Dioxide 23 BUN 25 H Creatinine 1.09 H Estimated GFR 50 L BUN/Creatinine Ratio 22.9 H Glucose 87 Calcium 9.1 Total Bilirubin 0.5 AST 24 ALT 8 Alkaline Phosphatase 57 Total Protein 5.1 L Albumin 2.6 L Globulin 2.5 Albumin/Globulin Ratio 1.0 Blood Type Antibody Screen Crossmatch [facility] Medical History Breast cancer, right (~2018) COPD (chronic obstructive pulmonary disease) Depression Easy bruisability Hearing impaired History of COVID-19 (06/2022) HLD (hyperlipidemia) Hypertension Itching Malignant neoplasm of right female breast Neuropathy Osteoarthritis TIA (transient ischemic attack) Wrist fracture, left Surgical History H/O left wrist surgery (03/2022) H/O right wrist surgery History of hysterectomy History of total right hip replacement Hx of bilateral cataract extraction Hx of bladder repair surgery Hx of colonoscopy with polypectomy (2021) Hx of right mastectomy (~08/20/17) Family History Father No problems noted. Mother No problems noted. Social History household members: children Smoking Status: Former smoker alcohol intake: current Assessment & Plan Post-op Postoperative Procedures: Procedures Operation Date: 10/13/22 10:45 Actual Procedure Side Surgeon p Total Hip Arthroplasty/Anterior Approach Left Hanna Rivera MD Postoperative status narrative: Status post left total hip arthroplasty, anterior approach, consultation by hospitalist for postop anemia/orthostatic hypotension Postoperative plan narrative: Patient will be maintained on standard total hip replacement protocol with weight-bearing as tolerated and anterior hip precautions. Aspirin for DVT prophylaxis. Mobilize with physical therapy today. Disposition likely discharge home today if stable per hospitalist and safe for home environment per physical therapy.
[2022-10-17 08:00] VITALS: BP 127/69; PULSE 79; RESP 18; TEMP 37.5; O2SAT 99
[2022-10-17] MEDS: ACETAMINOPHEN 325 MG TABLET 650 MG PO ×2 (08:07→13:57)
[2022-10-17] MEDS: SERTRALINE 50 MG TABLET PO (08:07)
[2022-10-17] MEDS: DOCUSATE 100 MG CAPSULE PO (08:07)
[2022-10-17] MEDS: FERROUS SULFATE 325 MG TABLET PO (08:07)
[2022-10-17] MEDS: ASPIRIN EC 81 MG TABLET PO (08:07)
--- NOTE | 2022-10-17 10:20 | PM.PN.1 ---
Subjective Subjective Interval history: Patient feels well, denies complaints. Still orthostatic this morning, but without complaints. Denies chest pain, shortness of breath, Exam Vital Signs (past 8 hours): - 10/17/22 04:00 10/17/22 06:22 10/17/22 08:00 Temperature 98 F 99.5 F Pulse Rate 73 79 Respiratory Rate 20 18 Blood Pressure 164/99 H 127/69 Pulse Oximetry 95 95 99 Oxygen Delivery Method Room Air Oxygen Flow Rate 0 0 Oxygen Delivery Method Room Air Oxygen Flow Rate 0 Narrative Exam Narrative: General: Patient is a well-developed, well-nourished elderly female in no distress at this time. Lungs: Auscultation of all lung norris are clear without adventitious sounds, wheezes, rhonchi, or rales. Cardio: S1 & S2 with regular rate and rhythm without murmur, rubs, or gallops, no carotid bruit, no cardiac pulsations present. Ext: no edema, cyanosis, or clubbing Objective Labs 10/17/22 05:46 10/17/22 05:46 Labs: Laboratory Results - last 24 hr 10/16/22 10/16/22 10/16/22 14:50 14:50 15:45 WBC 9.0 RBC 2.40 L Hgb 7.5 L Hct 22.3 L MCV 93.2 MCH 31.5 MCHC 33.8 RDW 14.7 Plt Count 186 Neut % (Auto) 79.7 H Lymph % (Auto) 6.2 L Traverse % (Auto) 9.7 Eos % (Auto) 3.9 Baso % (Auto) 0.5 Neut # (Auto) 7200 H Lymph # (Auto) 600 L Traverse # (Auto) 900 Eos # (Auto) 400 Baso # (Auto) 0 Sodium 129 L Potassium 4.3 Chloride 100 Carbon Dioxide 19 L BUN 25 H Creatinine 1.09 H Estimated GFR 50 L BUN/Creatinine Ratio 22.9 H Glucose 129 H Calcium 8.9 Total Bilirubin 0.2 AST 24 ALT 9 Alkaline Phosphatase 57 Total Protein 5.1 L Albumin 2.7 L Globulin 2.4 Albumin/Globulin Ratio 1.1 Blood Type O Positive Antibody Screen Negative Crossmatch See Detail 10/16/22 10/17/22 10/17/22 21:35 05:46 05:46 WBC 7.4 RBC 2.84 L Hgb 8.7 L 8.9 L Hct 25.5 L 25.6 L MCV 90.3 MCH 31.3 MCHC 34.6 RDW 15.9 H Plt Count 178 Neut % (Auto) 64.2 Lymph % (Auto) 13.4 L Traverse % (Auto) 10.1 Eos % (Auto) 11.7 H Baso % (Auto) 0.6 Neut # (Auto) 4700 Lymph # (Auto) 1000 L Traverse # (Auto) 700 Eos # (Auto) 900 H Baso # (Auto) 0 Sodium 129 L Potassium 4.3 Chloride 102 Carbon Dioxide 23 BUN 25 H Creatinine 1.09 H Estimated GFR 50 L BUN/Creatinine Ratio 22.9 H Glucose 87 Calcium 9.1 Total Bilirubin 0.5 AST 24 ALT 8 Alkaline Phosphatase 57 Total Protein 5.1 L Albumin 2.6 L Globulin 2.5 Albumin/Globulin Ratio 1.0 Blood Type Antibody Screen Crossmatch [facility] Medical History Breast cancer, right (~2017) COPD (chronic obstructive pulmonary disease) Depression Easy bruisability Hearing impaired History of COVID-19 (06/2022) HLD (hyperlipidemia) Hypertension Itching Malignant neoplasm of right female breast Neuropathy Osteoarthritis TIA (transient ischemic attack) Wrist fracture, left Surgical History H/O left wrist surgery (03/2022) H/O right wrist surgery History of hysterectomy History of total right hip replacement Hx of bilateral cataract extraction Hx of bladder repair surgery Hx of colonoscopy with polypectomy (2021) Hx of right mastectomy (~08/20/17) Family History Father No problems noted. Mother No problems noted. Social History household members: children Smoking Status: Former smoker alcohol intake: current Assessment & Plan Assessment & Plan narrative: Autumn Patino is an 82-year-old female with history COPD, depression, HLD, HTN, history of breast cancer, OA, TIA, who was taken to the OR today by Dr. Bermudez orthopedics for left total hip arthroplasty, anterior approach. Status post the patient experienced orthostatic hypotension, anemia and mild hyponatremia. Patient has chronic hyponatremia, improved symptoms after transfusion and holding home lisinopril. 1. Left total hip arthroplasty, status post orthostatic hypotension, acute. -combination of lisinopril and hypovolemia secondary to surgical procedure likely cause of orthostatic hypotension. -continue to hold lisinopril until 10/19/22, discussed with patient. -still orthostatic this morning, but asymptomatic. Okay for discharge home at this time. 2. Anemia, acute status post total hip arthroplasty, acute -improved after transfusion, no additional management recommended inpatient. Continued follow up with PCP recommended. 3. Hyponatremia, mild, acute, present on admission -Na+ 129 in setting of chronic hyponatremia. Currently asymptomatic. 4. Malnutrition, mild, acute on chronic, present on admission -BMI 21.8 is likely contributing to orthostatic hypotension -patient's malnutrition places them at high risk for medical and surgical complications in relation to acute illness/chronic illness. This increases the difficulty in complexity of medical management and increases the chances poor outcomes such as mortality and morbidity as well as impaired wound healing, and immune suppression. 5. Hypertension, essential, chronic, present on admission-well controlled - hold lisinopril as discussed above. Code status:Full Surrogate decision maker: Daughter Eli TUBBS PCR: Negative DVT/VTE prophylaxis: SCD right only Disposition: discharge home per primary team, given no symptoms this AM can discharge home from medical perspective, with lisinopril held until 10/19 as discussed above. Will sign off at this time.
--- NOTE | 2022-10-17 10:50 | PT.IPTN ---
Current Diagnoses Unilateral primary osteoarthritis, left hip (10/15/22) Surgery Performed Operation Date: 10/13/22 10:45 Actual Procedures p Total Hip Arthroplasty/Anterior Approach(Left) - Hanna Rivera MD Physical Therapy Treatment Note M2 PT-IP Current Condition Start: 10/13/22 16:46 Freq: NEEDED Status: Active Protocol: Document 10/13/22 15:11 DCW (Rec: 10/13/22 17:02 DCW [id number]) Physical Therapy Current Condition Current Condition Evaluation Date 10/13/22 Treatment Diagnosis L Anterior DEBRA Onset Date 10/13/22 M3 PT-IP Subjective Start: 10/13/22 16:46 Freq: NEEDED Status: Active Protocol: Document 10/17/22 10:50 AW (Rec: 10/17/22 12:49 AW [id number]) Subjective Physical Therapy Visit Type Type Treatment Note Visit Start Time 10:17 Visit Stop Time 10:50 Total Visit Minutes 33 Physical Therapy Visit Comments Patient Comments Pt resting in bed, agreeable to PT session Patient Goals Hoping to go home today, motivated to try stairs Therapy Pain Assessment Pain When Pain Assessed During Mobility Pain Present Pain Present Denied Pain M4 PT-IP Mobility and Gait Start: 10/13/22 16:46 Freq: NEEDED Status: Active Protocol: Document 10/17/22 10:50 AW (Rec: 10/17/22 12:49 AW [id number]) PT-Bed Mobility Assessment Supine to Sit Supine to Sit Minimal Assistance,1 Person Assistance,Head of Bed Elevated Sit to Supine Sit to Supine Minimal Assistance PT-Transfer Assessment Sit to and From Stand Sit to and from Stand Minimal Assistance,Moderate Assistance,1 Person Assistance ,Use of Upper Extremities Equipment Transfer Assistive Device Bed Rail,Gait Belt,Front Wheeled Walker Orthotic/Prosthetic Devices or Brace: No Transfers Transfer Destination Chair,Wheelchair Transfer Technique Stand Step Pivot Transfer Ability Level of Assist Minimal Assistance,1 Person Assistance,Use of Upper Extremities Comments Mobility Comments Pt sets up her sit to stand transfer well - scooting her hips forward and pulling her feet close. She pushes off the bed and bed cane but needs assist for safe transition of hands to walker handles. Pt needed min to mod assist with FWW for transfers. Gait Assessment Gait Gait Assistance Required: Contact Guard Assist Distance (Feet) 100 Able to Maintain Weight Bearing Status Yes During Gait Assistive Devices Assistive Device Gait Belt,Front Wheeled Walker ,4 Wheeled Walker Orthotic/Prosthetic Devices or Brace: No Gait Deviations General Gait Pattern Antalgic,Decreased Stride Length,Decreased Feet Clearance,Flexed Trunk,Step-to Gait Factors Limiting Gait Function Factors Limiting Gait Function Decreased Strength,Limited Range of Motion,Pain Comments Gait Comments Educated pt on recommendation for FWW instead of 4WW but pt was interested in trying 4WW which she is more used to. With 4WW, pt noted decreased stability and ultimately agreed with recommendation for FWW. PT spoke with pt's daughter after session and confirmed that she does have a FWW for home use. Stair Climbing Assessment Evaluation Level of Assist On Stairs Moderate Assistance,1 Person Assistance Devices Stair Climbing Assistive Devices Left Railing Technique/Endurance Stair Climbing Direction Ascend and Descend Stair Climbing Technique Step to Step Number of Steps Climbed 3 Stair Climbing Set # Repetitions (reps) 1 Comments Stair Climbing Comments Pt stated she tends to go up and down stairs sideways with two hands on the rail. Confirmed with pt that she has a left sided railing for ascent. Pt was able to manage three steps sideways with step to patterning but needed cues for bigger step with leading LE in order to accommodate the second LE while going both up and down. Phoned pt's daughter and explained cues which she understood. Further explained that pt is at risk of externally rotating her left hip if she descends with LLE first and then twists on that leg to place RLE behind. PT-Balance Assessment Sitting Balance and Reactions Static Sitting Balance Ability Normal Dynamic Sitting Balance Ability Good Standing Balance and Reactions Static Standing Balance Ability Fair Dynamic Standing Balance Ability Fair Device Used 4WW; FWW M5 PT-IP Objective Assessments Start: 10/13/22 16:46 Freq: NEEDED Status: Active Protocol: Document 10/13/22 15:11 DCW (Rec: 10/13/22 17:02 DCW [id number]) Orientation Orientation/Cognition Level of Alertness Alert Orientation Name,Birthday,Month,Year,Place ,Situation Language Function Ability No Deficits Noted Safety Awareness Understands Safety Issues Memory Description No Deficits Noted Gross Range of Motion Lower Extremity ROM Assessment Left Impaired Strength Lower Extremity Strength Assessment Left Impaired M6 PT-IP Treatment Start: 10/13/22 16:46 Freq: NEEDED Status: Active Protocol: Document 10/17/22 10:50 AW (Rec: 10/17/22 12:49 AW [id number]) Physical Therapy Treatment Education Education Provided Precautions,Weight Bearing Status,Safety Other Treatments Other Treatment Performed Education on recommendation for FWW and stair navigation with both pt and her daughter. M7 PT-IP Assessment and Plan Start: 10/13/22 16:46 Freq: NEEDED Status: Active Protocol: Document 10/17/22 10:50 AW (Rec: 10/17/22 12:49 AW [id number]) PT Summary Assessment and Plan Potential Rehabilitation Potential Good Summary Impairments Pain,ROM,Strength,Bed Mobility ,Transfers,Gait,Activity Tolerance Progress Towards Goals Slow Progress due to Pain,Slow Progress due to Medical Issues,Slow Progress due to Activity Tolerance Assessment Summary Pt significantly increased her gait distance and managed 3 stairs with mod assist. She benefitted from cues for quads activation and foot placement during stair training ( communicated same to daughter) . Pt will have 24/7 assist at home. She understands to use her FWW. She will be able to ascend stairs with mod assist. She will be safe to discharge home with 24/7 assist and home health PT once medically stable. Goals Bed Mobility Goal Standby Assistance Transfer Goal Standby Assistance Gait Goal Standby Assistance,Four Wheel Walker Gait Distance 100 Other Goals Ascend/descend 3 steps SBA using L ascending rail Days to Meet Goals 3 Frequency of Treatment Frequency Of Treatment Twice a Day Treatment Plan Physical Therapy Treatment Plan Bed Mobility Training,Transfer Training,Gait Training, Therapeutic Exercise,Post Op Education,Discharge Planning Other Recommendations and Next Treatment Gait and stair training, Focus review HEP and hip precautions . Precautions Anterior Hip Precautions No Hip Extension,No Hip External Rotation Weight Bearing Status Weight Bearing Status Weight Bear as Tolerated Recommendations To Nursing Amount of Assist Needed 1 Person Assist Discharge Recommendations PT Discharge Recommendations Home with 24/7 Assist Available,Home Health Transportation Needs at Discharge Private Vehicle
--- NOTE | 2022-10-17 11:56 | CM.DPNOTE ---
DCP/continued: Reviewed chart. Patient anticipated to d/c home today. Met briefly with patient explained CM/SW role. Patient reports that she hopes to d/c home today. Patient set up with Karen MORENO for d/c plan. Left brochure with patient and requested BRITANY/Holly follow up with sending d/c summary when available. P: Home with Karen MORENO today? ROSHNI Ojeda
== END 2022-10-17 14:22 | disposition home health service (06) | DRG 470 ==
LOC: OR 12:49 → AC 12:49
PROVIDERS: Nurse Practitioner Family; Orthopaedic Surgery Foot and Ankle Surgery; Physician Assistant; Admitting Provider Orthopaedic Surgery; Family Provider Family Medicine; PCP Family Medicine; Referring Provider Orthopaedic Surgery; Visit Provider Orthopaedic Surgery
PROC: 0SRB01A Replacement of Left Hip Joint with Metal Synthetic Substitute, Uncemented, Open Approach (ICD-10-PCS; CPT 27130; principal; 2022-10-13 10:45)
DX: M16.12 Unilateral primary osteoarthritis, left hip (principal); D62 Acute posthemorrhagic anemia; E87.1 Hypo-osmolality and hyponatremia; E44.1 Mild protein-calorie malnutrition; I95.1 Orthostatic hypotension; F32.A Depression, unspecified; I10 Essential (primary) hypertension; Z87.891 Personal history of nicotine dependence; Z68.21 Body mass index [BMI] 21.0-21.9, adult; Z20.822 Contact with and (suspected) exposure to COVID-19
CPT/HCPCS: 36415; 36430; 73502; 76000; 80053; 85014; 85018; 85025; 86850; 86900; 86901; 87635; 97110; 97116; 97161; 97530; C1776; C9803; G0378; P9016; C9290; J0171; J0690; J1100; J2405; J2704; J3010

== ENCOUNTER → 2023-01-23 12:32 | Outpatient (CLI) | payer MEDICARE, BC, SELFPAY ==
[2022-10-13 14:47] VITALS: BMI 21.7
--- NOTE | 2023-01-23 | DI.MG.S_ITS ---
UNILATERAL LEFT DIGITAL SCREENING MAMMOGRAM 3D/2D WITH CAD POST MASTECTOMY: 01/23/2023 CLINICAL: Routine screening. Personal history of right breast cancer. Family history of breast cancer. Comparison is made to exams dated: 10/28/2020 mammogram, 10/15/2018 mammogram - [facility], and 07/27/2017 mammogram - [facility]. There are scattered areas of fibroglandular density in the left breast (category b / 25%-50% glandular tissue). Current study was also evaluated with a Computer Aided Detection (CAD) system. There are benign vascular calcifications in the left breast. No significant masses, calcifications, or other findings are seen in the breast. There has been no significant interval change. IMPRESSION: BENIGN There is no mammographic evidence of malignancy. A 1 year screening mammogram is recommended. This exam was interpreted at Station ID: [id number]. NOTE: For mammograms, a report in lay terms will be sent to the patient. Approximately 15% of breast malignancies will not be visualized mammographically. In the management of a palpable breast mass, a negative mammogram must not discourage biopsy of a clinically suspicious lesion. Electronically Signed By: Bhavana cosby/serjio:01/24/2023 12:30:38 copy to: EDIE PARRA letter sent: Normal Exam ACR BI-RADS Category 2: Benign Finding(s) [id number]
== END ==
PROVIDERS: Family Provider Family Medicine; PCP Family Medicine; Referring Provider Internal Medicine Hematology & Oncology; Visit Provider Internal Medicine Hematology & Oncology
DX: Z12.31 Encounter for screening mammogram for malignant neoplasm of breast (principal); Z85.3 Personal history of malignant neoplasm of breast; Z80.3 Family history of malignant neoplasm of breast
CPT/HCPCS: 77063; 77067

== ENCOUNTER → 2023-04-21 14:06 | Outpatient (CLI) | payer MEDICARE, BC, SELFPAY ==
[2022-10-13 14:47] VITALS: BMI 21.7
[2023-04-21 15:06] LABS: Add Manual Diff / Slide Review NO; Basophils Absolute Auto 100 /uL (0-100); Basophils Percent Auto 1.7 % (0-2); Eosinophils Absolute Auto 700 /uL (0-450); Hematocrit 31.7 % (36-46); Lymphocytes Absolute Auto 1400 /uL (1100-4500); Lymphocytes Percent Auto 19.7 % (25-40); Mean Corpuscular HGB Conc 34.6 % (30-36); Mean Corpuscular Hemoglobin 31.7 PG (26-34); Mean Corpuscular Volume 91.7 fL (80-100); Monocytes Absolute Auto 600 /uL (0-900); Neutrophils Absolute Auto 4200 /uL (1500-7000); Neutrophils Percent Auto 59.6 % (50-75); Platelet Count 258 X10^3/uL (150-400); Red Blood Cell Count 3.46 X10^6/uL (4.0-5.2); Red Cell Distribution Width 12.8 % (11.6-14.8)
[2023-04-21 15:29] LABS: Alanine Aminotransferase 16 IU/L (<35); Albumin 4.3 g/dL (3.5-5.0); Albumin Globulin Ratio 1.6 (1.0-2.8); Alkaline Phosphatase 65 U/L (38-126); Aspartate Aminotransferase 31 IU/L (14-36); BUN Creatinine Ratio 28.5 (6-22); Bilirubin Total 0.3 mg/dL (0.2-1.3); Blood Urea Nitrogen 37 mg/dL (7-17); Calcium 11.1 mg/dL (8.4-10.2); Carbon Dioxide 25 mmol/L (22-32); Chloride 99 mmol/L (98-107); Estimated Glomerular Filt Rate 40 mL/min (>60); Globulin 2.7 g/dL (1.7-4.1); Glucose 83 mg/dL (80-110); HEMOLYSIS < 15 (0-50); Iron 110 ug/dL (37-170); Potassium 5.1 mmol/L (3.4-5.1); Sodium 132 mmol/L (137-145)
[2023-04-21 15:39] LABS: Percent Iron Saturation 36 % (15-50); Total Iron Binding Capacity 305 ug/dL (265-497); Transferrin 207 mg/dL (206-381)
[2023-04-21 16:04] LABS: Ferritin 142 ng/mL (11-264)
== END ==
PROVIDERS: Family Provider Family Medicine; PCP Family Medicine; Referring Provider Internal Medicine Hematology & Oncology; Visit Provider Internal Medicine Hematology & Oncology
DX: N18.9 Chronic kidney disease, unspecified (principal); D63.1 Anemia in chronic kidney disease
CPT/HCPCS: 36415; 80053; 82728; 83540; 83550; 85025

== ENCOUNTER → 2024-01-25 13:22 | Outpatient (CLI) | payer MEDICARE, BC, SELFPAY ==
[2022-10-13 14:47] VITALS: BMI 21.7
--- NOTE | 2024-01-25 13:25 | DI.MG.S_ITS ---
UNILATERAL LEFT DIGITAL SCREENING MAMMOGRAM 3D/2D WITH CAD POST MASTECTOMY: 01/25/2024 CLINICAL: Routine screening. Personal history of right breast cancer. Family history of breast cancer. Comparison is made to exams dated: 01/23/2023 mammogram, 10/28/2020 mammogram, and 10/15/2018 mammogram - [facility]. There are scattered areas of fibroglandular density in the left breast (category b / 25%-50% glandular tissue). Current study was also evaluated with a Computer Aided Detection (CAD) system. There are benign vascular calcifications in the left breast. No significant masses, calcifications, or other findings are seen in the breast. There has been no significant interval change. IMPRESSION: BENIGN There is no mammographic evidence of malignancy. A 1 year screening mammogram is recommended. This exam was interpreted at Station ID: [id number]. NOTE: For mammograms, a report in lay terms will be sent to the patient. Approximately 15% of breast malignancies will not be visualized mammographically. In the management of a palpable breast mass, a negative mammogram must not discourage biopsy of a clinically suspicious lesion. Electronically Signed By: Gray dyer/serjio:01/25/2024 14:34:52 copy to: EDIE PARRA letter sent: Normal Exam ACR BI-RADS Category 2: Benign Finding(s) [id number]
== END ==
PROVIDERS: Family Provider Family Medicine; PCP Family Medicine; Referring Provider Internal Medicine Hematology & Oncology; Visit Provider Internal Medicine Hematology & Oncology
DX: Z12.31 Encounter for screening mammogram for malignant neoplasm of breast (principal); Z85.3 Personal history of malignant neoplasm of breast; Z80.3 Family history of malignant neoplasm of breast; R92.323 Mammographic fibroglandular density, bilateral breasts
CPT/HCPCS: 77063; 77067

== ENCOUNTER 2024-03-27 13:29 | Inpatient (IN) | payer MEDICARE, BC, SELFPAY ==
[2022-10-13 14:47] VITALS: BMI 21.7
[2024-03-27] VITALS (30 sets, daily range): BP systolic 150–233; BP diastolic 64–94; PULSE 57–81; RESP 16–18; TEMP 35.9–37.1; O2SAT 90–98; BMI 20.9
--- NOTE | 2024-03-27 13:35 | DI.RAD.S_ITS ---
PROCEDURE: XR HIP W PEL IF DONE RT 3V INDICATIONS: hip pain,fall 2 weeks ago,unable to bear weight TECHNIQUE: AP pelvis and two views of the right hip acquired. COMPARISON: [facility], JAVID, XR HIP W PEL IF DONE LT 2V, 10/13/2022, 13:18. FINDINGS: Bilateral hip arthroplasties are again noted. Left hip arthroplasty within normal limits without radiographic evidence of periprosthetic fracture or lucency. There is a new or increased subtle lucency measuring up to 2 mm transverse surrounding the proximal femoral stem of the right hip arthroplasty which may be related to moderate diffuse osteopenia although particle disease or loosening could have a similar appearance. No radiographic evidence of displaced fracture. Incidental note is made of moderate vascular calcifications unchanged. Pattern of constipation. Moderate degenerate changes lower lumbar spine and sacral iliac joints unchanged. IMPRESSION: Bilateral hip arthroplasties. New or increased lucency adjacent to the proximal femoral stem of the right hip arthroplasty. Moderate osteopenia, particle disease or loosening could have a similar appearance. If symptoms persist or worsen, or there is high clinical suspicion of acute abnormality, CT or MRI could be performed. Dictated by: Luiz Pinzon M.D. on 03/27/2024 at 14:13 Approved by: Luiz Pinzon M.D. on 03/27/2024 at 14:20
--- NOTE | 2024-03-27 15:12 | DI.RAD.S_ITS ---
PROCEDURE: XR CHEST 1V INDICATIONS: chest pain TECHNIQUE: One view of the chest was acquired. COMPARISON: No prior studies available for comparison. FINDINGS: Moderate calcifications of the aortic arch and descending aorta. Moderate degenerate changes of the thoracic spine and shoulders. Moderate decreased height of lower thoracic vertebral bodies most notably T9, T10 partially imaged on this frontal exam commonly chronic compression fractures, although age indeterminate Mild left lower lobe subsegmental atelectasis. No pneumothorax, no pleural effusion, no lobar consolidation. Cardiopericardial silhouette and pulmonary vasculature within normal limits. IMPRESSION: Mild left lower lobe subsegmental atelectasis. Other chronic findings as discussed above. If symptoms persist or worsen, or there is high clinical suspicion of acute thoracic abnormality, CT could be performed Dictated by: Luiz Pinzon M.D. on 03/27/2024 at 16:02 Approved by: Luiz Pinzon M.D. on 03/27/2024 at 16:09
--- NOTE | 2024-03-27 15:16 | DI.CT.S_ITS ---
PROCEDURE: CT PEL WO CON INDICATIONS: right hip pain, x 1 week after fall, concern for loosning valero TECHNIQUE: Noncontrast 3 mm axial sections acquired through the bony pelvis, with coronal and sagittal reformatting. COMPARISON: No prior CT for comparison. Comparison can be made to prior x-ray right hip pelvis 03/27/2024 at 1:42 p.m. FINDINGS: Bilateral hip arthroplasties. No CT evidence of fracture, dislocation or high attenuation soft tissue foreign body. Left hip arthroplasty within normal limits without CT evidence of periprosthetic fracture or lucency. Vertically oriented lucency measuring up to approximately 4 mm transverse (coronal series 3 image 42) is noted adjacent to the proximal medial aspect of the right femoral arthroplasty stem which is nonspecific but may be related to moderate diffuse osteopenia and proximal although loosening, particle disease or other process could give this appearance. Moderate degenerate changes lower lumbar spine are noted most notably L3-4 with severe central stenosis and bilateral neural foraminal narrowing and L4-5 with grade 1 anterolisthesis and moderate central stenosis, neural foraminal narrowing. Moderate calcifications of the aorta and iliac vessels are noted. Pattern of constipation in the visualized portions of the colon predominately cecum, sigmoid colon and rectum. Mild diverticulosis of the sigmoid colon without CT evidence of diverticulitis. Evaluation of the pelvis is limited by beam hardening artifacts related to hip arthroplasties. IMPRESSION: Vertically oriented lucency adjacent to the proximal medial aspect of the right femoral arthroplasty stem which is nonspecific but may be related to moderate diffuse osteopenia and proximal although loosening, particle disease or other process could give this appearance. Moderate degenerate changes lower lumbar spine most notably L3-4 with severe central stenosis and bilateral neural foraminal narrowing and L4-5. Moderate calcifications of the aorta and iliac vessels. Pattern of constipation. Mild diverticulosis of the sigmoid colon without CT evidence of diverticulitis. If symptoms persist or worsen, MRI could be performed on an outpatient basis. Dictated by: Luiz Pinzon M.D. on 03/27/2024 at 16:40 Approved by: Luiz Pinzon M.D. on 03/27/2024 at 17:02
[2024-03-27 15:40] LABS: Add Manual Diff / Slide Review NO; Basophils Absolute Auto 100 /uL (0-100); Basophils Percent Auto 1.1 % (0-2); Eosinophils Absolute Auto 500 /uL (0-450); Eosinophils Percent Auto 8.3 % (2-4); Hematocrit 31.5 % (36-46); Hemoglobin 10.9 g/dL (12.0-16.0); Lymphocytes Absolute Auto 1600 /uL (1100-4500); Lymphocytes Percent Auto 25.9 % (25-40); Mean Corpuscular HGB Conc 34.5 % (30-36); Mean Corpuscular Hemoglobin 31.6 PG (26-34); Mean Corpuscular Volume 91.8 fL (80-100); Monocytes Absolute Auto 600 /uL (0-900); Monocytes Percent Auto 10.2 % (3-14); Neutrophils Absolute Auto 3300 /uL (1500-7000); Neutrophils Percent Auto 54.5 % (50-75); Platelet Count 225 X10^3/uL (150-400); Red Blood Cell Count 3.43 X10^6/uL (4.0-5.2); Red Cell Distribution Width 12.7 % (11.6-14.8); White Blood Cell Count 6.1 X10^3/uL (4.5-11.0)
[2024-03-27 15:58] LABS: Prothrombin Time 10.9 SECONDS (9.4-12.5)
[2024-03-27 16:01] LABS: PTT Partial Thromboplastin Tim 34 SECONDS (25.1-36.5)
[2024-03-27 16:05] LABS: Alanine Aminotransferase 19 IU/L (<35); Albumin Globulin Ratio 1.4 (1.0-2.8); Alkaline Phosphatase 68 U/L (38-126); Aspartate Aminotransferase 33 IU/L (14-36); BUN Creatinine Ratio 19.3 (6-22); Bilirubin Total 0.4 mg/dL (0.2-1.3); Blood Urea Nitrogen 26 mg/dL (7-17); Calcium 10.4 mg/dL (8.4-10.2); Carbon Dioxide 26 mmol/L (22-32); Chloride 98 mmol/L (98-107); Creatine Kinase 37 U/L (30-135); Estimated Glomerular Filt Rate 39 mL/min (>60); Globulin 2.8 g/dL (1.7-4.1); Glucose 73 mg/dL (80-110); HEMOLYSIS < 15 (0-50); Lipase 84 U/L (23-300); Magnesium 1.8 mg/dL (1.6-2.3); Potassium 3.8 mmol/L (3.4-5.1); Sodium 130 mmol/L (137-145); Total Protein 6.8 g/dL (6.3-8.2)
[2024-03-27 16:17] LABS: NT-proBNP (BNP-Adult 18+) 1220 pg/mL (<450); Troponin I < 0.012 ng/mL (0.01-0.034)
--- NOTE | 2024-03-27 16:20 | PC.NURSE ---
Addendum entered by Neela Street CNA 03/27/24 16:28: Pt did NOT fall. Pt's bad leg could not support her weight any longer and pt leaned to her left, putting all their weight onto this CREDIT RISK MANAGEMENT DIRECTOR. Addendum entered by Neela Street CNA 03/27/24 16:23: This CREDIT RISK MANAGEMENT DIRECTOR came into the room to assist but pt failed to picot onto the commode and fell onto this CREDIT RISK MANAGEMENT DIRECTOR. This CREDIT RISK MANAGEMENT DIRECTOR help their weight and called for assistance with lifting patient back into bed, Original Note: Pt wanted to get up and use commode. Daughters reported that they were able to get pt to sit in wheelchair and stand and pivot in the bathroom. Doctor and nurse decided it best to utilize a bedside commode. This CREDIT RISK MANAGEMENT DIRECTOR came inthe room to assist
--- NOTE | 2024-03-27 18:08 | ED.GENADULT ---
HPI - General Adult General Chief complaint: Fall Stated complaint: R Hip Pain Time Seen by Provider: 03/27/24 15:16 Source: patient Mode of arrival: EMS History of Present Illness HPI narrative: 83-year-old woman with a history of hypertension, chronic kidney disease, prior breast cancer currently being evaluated for anemia who fell 2 weeks ago was able to walk at that time but has had increasing pain in his now unable to walk secondary to pain in the right hip. She has had bilateral hip replacement. She has not complaining of fever, cough, chills, abdominal pain, pelvic pain. There was no numbness or tingling in the right lower extremity. There was no low back pain with palpation. Pain is present with movement and she is unable to bear weight. At rest pain is controlled. Related Data Home Medications Medication Instructions Recorded Confirmed sertraline 50 mg tablet 50 mg PO DAILY ##0 12/23/06 01/30/23 [IRON BUILDER] 2 tab PO BEDTIME ##0 09/04/17 01/30/23 lisinopril 10 mg tablet 10 mg PO BID 12/06/17 01/30/23 fesoterodine 4 mg tablet,extended 4 mg PO DAILY 04/01/22 01/30/23 release 24 hr (Toviaz) diphenhydramine HCl 25 mg tablet 50 mg PO BID 10/03/22 01/30/23 (Allergy Relief (diphenhydramine)) Previous Rx's Medication Instructions Recorded walker #1 ea 04/01/22 acetaminophen 325 mg tablet 650 mg (2 x 325 mg) PO Q6H #120 10/14/22 tabs aspirin 81 mg tablet,delayed 81 mg PO BID #84 tabs 10/14/22 release ibuprofen 400 mg tablet 400 mg PO Q4H #120 tabs 10/14/22 docusate sodium 100 mg capsule 100 mg PO BID PRN constipation #30 10/15/22 caps Allergies Allergy/AdvReac Type Severity Reaction Status Date / Time No Known Drug Allergies Allergy Verified 03/27/24 13:36 Review of Systems Review of Systems Narrative: Pertinent positive and negative findings as per HPI Patient History Medical History Breast cancer, right (~2018) COPD (chronic obstructive pulmonary disease) Depression Easy bruisability Hearing impaired History of COVID-19 (06/2022) HLD (hyperlipidemia) Hypertension Itching Malignant neoplasm of right female breast Neuropathy Osteoarthritis TIA (transient ischemic attack) Wrist fracture, left Surgical History H/O left wrist surgery (03/2022) H/O right wrist surgery History of hysterectomy History of total right hip replacement Hx of bilateral cataract extraction Hx of bladder repair surgery Hx of colonoscopy with polypectomy (2021) Hx of right mastectomy (~08/20/17) Family History Father No problems noted. Mother No problems noted. Social History household members: children Smoking Status: Former smoker alcohol intake: current Smoking Status: Former smoker alcohol intake frequency: holidays/special occasions only Substance Use Type: does not use Exam Initial Vital Signs Initial Vital Signs: Vital Signs Pulse Rate 67 03/27/24 13:34 Blood Pressure 211/82 H 03/27/24 13:34 Pulse Oximetry 97 03/27/24 13:34 General: Healthy appearing, in no acute distress. Able to give a complete and coherent history. Well-nourished well-developed HEENT: Moist mucous membranes, normal sclera with reactive pupils, Respiratory: Lungs are clear to auscultation, no wheezing no rales no rhonchi. Full and symmetrical air movement Cardiac: Regular rate and rhythm no murmurs no bruits Abdomen: Soft, nontender, good bowel tones, no flank pain Neurologic: Grossly neurologically intact with no obvious asymmetries or abnormalities Extremities: Mild chronic venous stasis changes, no significant lower extremity edema. No bruising or contusion around the area of tenderness in the right anterior thigh. No redness. Unable to bear weight on the right leg at all Psych: Cooperative, appropriate insight and affect Course Orders Ordered: ED Orders 03/27/24 13:35 XR hip w pel if done RT 2V Stat 03/27/24 15:12 XR chest 1V Stat EKG-12 Lead Stat 03/27/24 15:16 CT pelvis wo con Stat 03/27/24 15:31 Complete Blood Count AUTO DIFF Stat Comprehensive Metabolic Panel Stat Lipase Stat Magnesium Stat NT-proBNP (BNP-Adult 18+) Stat PTT Partial Thromboplastin Skip Stat Prothrombin Time INR Stat Troponin & CK Cardiac Panel Stat 03/27/24 19:12 Urinalysis and Microscopic Stat Discontinued Medications Hydromorphone HCl (Hydromorphone 0.5 Mg Inj) 0.25 mg IV NOW ONE Stop: 03/27/24 18:57 Last Admin: 03/27/24 19:09 Dose: 0.25 mg Documented By: Vital Signs Vital signs: Vital Signs - 8 hr 03/27/24 13:34 03/27/24 13:34 03/27/24 13:36 Temperature 98.8 F Pulse Rate 67 81 Pulse Rate [Right Dorsalis Pedis] Respiratory Rate 16 Blood Pressure 211/82 H 211/82 H Pulse Oximetry 97 97 Oxygen Delivery Method Room Air 03/27/24 14:00 03/27/24 14:30 03/27/24 14:47 Temperature Pulse Rate 65 64 61 Pulse Rate [Right Dorsalis Pedis] Respiratory Rate Blood Pressure Pulse Oximetry 96 98 98 Oxygen Delivery Method 03/27/24 14:47 03/27/24 15:00 03/27/24 15:00 Temperature Pulse Rate 61 Pulse Rate [Right Dorsalis Pedis] Respiratory Rate Blood Pressure 186/78 H 160/72 H Pulse Oximetry 96 Oxygen Delivery Method 03/27/24 15:59 03/27/24 16:00 03/27/24 16:00 Temperature Pulse Rate 61 59 L Pulse Rate [Right Dorsalis Pedis] Respiratory Rate Blood Pressure 200/81 H Pulse Oximetry 93 94 Oxygen Delivery Method 03/27/24 16:16 03/27/24 16:16 03/27/24 16:30 Temperature Pulse Rate 58 L Pulse Rate [Right Dorsalis Pedis] Respiratory Rate Blood Pressure 170/73 H 167/75 H Pulse Oximetry 95 Oxygen Delivery Method 03/27/24 16:30 03/27/24 16:45 03/27/24 16:45 Temperature Pulse Rate 58 L 59 L Pulse Rate [Right Dorsalis Pedis] Respiratory Rate Blood Pressure 184/81 H Pulse Oximetry 93 96 Oxygen Delivery Method 03/27/24 17:00 03/27/24 17:00 03/27/24 17:15 Temperature Pulse Rate 57 L 57 L Pulse Rate [Right Dorsalis Pedis] Respiratory Rate Blood Pressure 178/73 H Pulse Oximetry 95 95 Oxygen Delivery Method 03/27/24 17:15 03/27/24 17:30 03/27/24 17:30 Temperature Pulse Rate 57 L Pulse Rate [Right Dorsalis Pedis] 58 L Respiratory Rate Blood Pressure 197/81 H Pulse Oximetry 95 Oxygen Delivery Method 03/27/24 17:31 03/27/24 17:31 03/27/24 17:46 Temperature Pulse Rate 58 L 57 L Pulse Rate [Right Dorsalis Pedis] Respiratory Rate Blood Pressure 183/78 H Pulse Oximetry 94 93 Oxygen Delivery Method 03/27/24 17:46 03/27/24 18:00 03/27/24 18:00 Temperature Pulse Rate 60 Pulse Rate [Right Dorsalis Pedis] Respiratory Rate Blood Pressure 190/93 H 178/82 H Pulse Oximetry 95 Oxygen Delivery Method 03/27/24 18:15 03/27/24 18:15 03/27/24 18:30 Temperature Pulse Rate 58 L 58 L Pulse Rate [Right Dorsalis Pedis] Respiratory Rate Blood Pressure 176/83 H Pulse Oximetry 96 95 Oxygen Delivery Method 03/27/24 18:30 03/27/24 18:45 03/27/24 18:45 Temperature Pulse Rate 61 Pulse Rate [Right Dorsalis Pedis] Respiratory Rate Blood Pressure 173/79 H 173/81 H Pulse Oximetry 93 Oxygen Delivery Method 03/27/24 19:00 03/27/24 19:00 03/27/24 19:15 Temperature Pulse Rate 60 66 Pulse Rate [Right Dorsalis Pedis] Respiratory Rate Blood Pressure 198/91 H Pulse Oximetry 94 95 Oxygen Delivery Method 03/27/24 19:15 Temperature Pulse Rate Pulse Rate [Right Dorsalis Pedis] Respiratory Rate Blood Pressure 204/94 H Pulse Oximetry Oxygen Delivery Method Medical Decision Making Lab Data 03/27/24 15:31 03/27/24 15:31 Labs: Lab Results 03/27/24 03/27/24 Range/Units 15:31 19:12 WBC 6.1 (4.5-11.0) X10^3/uL RBC 3.43 L (4.0-5.2) X10^6/uL Hgb 10.9 L (12.0-16.0) g/dL Hct 31.5 L (36-46) % MCV 91.8 (80-100) fL MCH 31.6 (26-34) PG MCHC 34.5 (30-36) % RDW 12.7 (11.6-14.8) % Plt Count 225 (150-400) X10^3/uL Neut % (Auto) 54.5 (50-75) % Lymph % (Auto) 25.9 (25-40) % White % (Auto) 10.2 (3-14) % Eos % (Auto) 8.3 H (2-4) % Baso % (Auto) 1.1 (0-2) % Neut # (Auto) 3300 (2157-0785) /uL Lymph # (Auto) 1600 (3186-6840) /uL White # (Auto) 600 (0-900) /uL Eos # (Auto) 500 H (0-450) /uL Baso # (Auto) 100 (0-100) /uL PT 10.9 (9.4-12.5) SECONDS INR 1.0 (0.9-1.3) APTT 34 (25.1-36.5) SECONDS Sodium 130 L (137-145) mmol/L Potassium 3.8 (3.4-5.1) mmol/L Chloride 98 (98-107) mmol/L Carbon Dioxide 26 (22-32) mmol/L BUN 26 H (7-17) mg/dL Creatinine 1.35 H (0.52-1.04) mg/dL Estimated GFR 39 L (>60) mL/min BUN/Creatinine Ratio 19.3 (6-22) Glucose 73 L (80-110) mg/dL Calcium 10.4 H (8.4-10.2) mg/dL Magnesium 1.8 (1.6-2.3) mg/dL Total Bilirubin 0.4 (0.2-1.3) mg/dL AST 33 (14-36) IU/L ALT 19 (<35) IU/L Alkaline Phosphatase 68 (38-126) U/L Total Creatine Kinase 37 (30-135) U/L Troponin I < 0.012 (0.01-0.034) ng/mL NT-Pro-B Natriuret Pep 1220 H (<450) pg/mL Total Protein 6.8 (6.3-8.2) g/dL Albumin 4.0 (3.5-5.0) g/dL Globulin 2.8 (1.7-4.1) g/dL Albumin/Globulin Ratio 1.4 (1.0-2.8) Lipase 84 (23-300) U/L Urine Color Yellow Urine Appearance Clear Urine pH 7.0 (4.5-8.0) Ur Specific [place] 1.010 (1.000-1.035) Urine Protein Negative (Negative) Urine Glucose (UA) Negative (Negative) g/dL Urine Ketones Negative (NEGATIVE) Urine Occult Blood Negative (Negative) Urine Nitrate Negative (Negative) Urine Bilirubin Negative (NEGATIVE) Urine Urobilinogen 0.2 (0.2) E.U./dL Ur Leukocyte Esterase Negative (NEGATIVE) Urine RBC None seen (0-5/HPF) Urine WBC None seen (0-5/HPF) Ur Squamous Epith Cells None seen (0-5/HPF) Urine Bacteria None seen (None) Ur Culture Indicated? Cult not indicated Vol Urine Centrifuged 10ml (spun) Urine Dip Bedside Urine Glucose Negative Bedside Urine Bilirubin - Negative Bedside Urine Ketone - Negative Urine Specific [place] 1.01 Bedside Urine Occult Blood - Negative Bedside Urine pH 7 Bedside Urine Protein - Negative Bedside Urine Urobilinogen - Negative Bedside Urine Nitrite - Negative Bedside Urine Leukocytes - Negative Esterase Point of care testing: Urine Dip Bedside Urine Glucose Negative Bedside Urine Bilirubin - Negative Bedside Urine Ketone - Negative Urine Specific [place] 1.01 Bedside Urine Occult Blood - Negative Bedside Urine pH 7 Bedside Urine Protein - Negative Bedside Urine Urobilinogen - Negative Bedside Urine Nitrite - Negative Bedside Urine Leukocytes - Negative Esterase MDM Narrative Medical decision making narrative: CC: Fall 2 weeks ago, increasing right hip pain Complicating co-morbidities: Bilateral hip prostheses, osteoporosis, chronic kidney disease, chronic anemia Patient was diagnosed with a urinary tract infection by her primary care physician yesterday. Is currently on a 7 day course of Bactrim and has had a total of 3 doses. She is not having any urinary symptoms currently. In and out cath sample will be obtained today Data collected from: patient, daughters Medical records reviewed: Oncology note from January of 2023 is reviewed Discharge summary from October of 2022 is reviewed Differential considered: Periprosthetic fracture, pelvic fracture, infection Exam documented above, pertinent findings include: Pleasant 83-year-old woman with progressive pain now to the point that she is unable to bear weight at all 2 weeks following a fall landing on the right hip Lab Test results independently reviewed as above. Pertinent findings: CBC shows chronic anemia Chemistries show chronic hyponatremia at 130, chronic renal insufficiency with creatinine at 1.35 Imaging studies independently reviewed: Hip x-ray shows new or increased lucency adjacent to the proximal femoral stem of the right hip arthroplasty. Chest x-ray with compression fractures of lower vertebral thoracic bodies, T9-T10 seemed to be worse. This does appear to be chronic. Cardiac and pulmonary norris are unremarkable CT scan shows no fracture dislocation or high attenuation soft tissue foreign body. Per radiology Vertically oriented lucency measuring up to approximately 4 mm transverse (coronal series 3 image 42) is noted adjacent to the proximal medial aspect of the right femoral arthroplasty stem which is nonspecific but may be related to moderate diffuse osteopenia and proximal although loosening, particle disease or other process could give this appearance. Consultations: Care is reviewed with Dr. Baldwin, orthopedic surgeon. Unfortunately there is no immediate option or surgical intervention he is able to offer Discussed care with Dr. Kramer. Recommended trial of narcotic pain medication and mobility re-evaluation. Discuss this with patient and daughters. Also discussed possibility that if she did have so much pain even with narcotic pain medication that she needed to be admitted she may need to be in a senior care facility for a brief period of time. Patient and her daughters do understand that you have already done some research and have a ?senior care facility on standby should we need that? Treatments: Patient has been taking combination ibuprofen/Tylenol which initially was helpful and no longer is. She is given 0.25 mg of Dilaudid with an ambulatory trial Re-evaluations: After IV Dilaudid, patient is still unable to bear weight and unable to sit at bedside secondary to pain. While lying flat pain is completely controlled. Discussed again with hospitalist and patient will be admitted Discussion:Pleasant 83-year-old woman with progressive pain now to the point that she is unable to bear weight at all 2 weeks following a fall landing on the right hip. No immediate orthopedic interventions are available. We will review with the hospitalist service given the fact that she is completely immobile and can not bear weight likely because loosening the prosthesis. Suspect that hospital admission with physical therapy to assist, further evaluate and help with pain control and further evaluation of safety for discharge home or whether she may actually need a brief rehab stay Urinalysis with a cath urine sample after 3 doses of Bactrim is unremarkable today. We will leave decision to continue Bactrim with the hospitalist service Discharge Plan Departure Patient Disposition: Admitted as Observation Clinical Impression: Intractable pain Femoral loosening of prosthetic right hip Qualifiers: Encounter type: initial encounter Qualified Code(s): T84.030A - Mechanical loosening of internal right hip prosthetic joint, initial encounter Urinary tract infection Qualifiers: Urinary tract infection type: acute cystitis Prescriptions: No Action sertraline 50 mg Tablet 50 mg PO DAILY Qty: 0 [IRON BUILDER] 2 tab PO BEDTIME Qty: 0 diphenhydramine HCl [Allergy Relief(diphenhydramin)] 25 mg Tablet 50 mg PO BID acetaminophen 325 mg Tablet 650 mg PO Q6H Qty: 120 0RF aspirin 81 mg Tablet,Delayed Release (Dr/Ec) 81 mg PO BID Qty: 84 0RF ibuprofen 400 mg Tablet 400 mg PO Q4H Qty: 120 0RF docusate sodium 100 mg Capsule 100 mg PO BID PRN (Reason: constipation) Qty: 30 0RF lisinopril 10 mg Tablet 10 mg PO BID fesoterodine [Toviaz] 4 mg tablet extended release 24 hr 4 mg PO DAILY (DME) [facility] See Rx Instructions .Route Qty: 1 0RF Rx Instructions: Platform (forearm) yobany Referrals: Johnathan Zhu MD [Primary Care Provider] - Admit Date/Time: 03/27/24 19:59 Admit Provider: Micky Ling
[2024-03-27] MEDS: HYDROMORPHONE 0.5 MG INJ 0.25 MG IV (19:09)
[2024-03-27 19:33] LABS: Appearance Urine UA CLEAR; Bilirubin Urine UA NEGATIVE (NEGATIVE); Color Urine UA YELLOW; Glucose Urine UA NEGATIVE (Negative); Ketones Urine UA NEGATIVE (NEGATIVE); Leukocyte Esterase Urine UA NEGATIVE (NEGATIVE); Nitrite Urine UA NEGATIVE (Negative); Occult Blood Urine UA NEGATIVE (Negative); Protein Urine UA NEGATIVE (Negative); Urobilinogen Urine UA 0.2 E.U./dL (0.2)
--- NOTE | 2024-03-27 19:34 | PC.NURSE ---
Pt not able to hold self up while sitting up in bed. Not able to transfer weight to stand. notified. BP 233/93, Dr Pascual notified.
[2024-03-27 19:44] LABS: Bacteria Urine None Seen; Culture Indicated Urine Cult Not Indicated; RBC Urine None Seen (0-5/HPF); Squamous Epithelial Cell Urine None Seen (0-5/HPF); Urine Volume 10mL (spun); WBC Urine None Seen (0-5/HPF)
--- NOTE | 2024-03-28 03:15 | P.HP_ITS ---
History of Present Illness History of Present Illness Chief complaint: R Hip Pain Narrative: 83 y/o with PMH of Rt DEBRA, presented with progressive pain of right hip with weight bearing, to the point that she is unable to walk. She had hip surgery years ago and images show lucency and loosening of hardware. ED attending consulted orthopedic surgeon who recommended pain management, PT and outpatient follow up. In October she had Lt hip surgery and her PMH includes chronic anemia, hyponatremia, CKD likely stage 3a, COPD, HTN, TIAs, hearing loss, breast cancer, HLD, depression, urinary incontinence. In addition, CXR shows compression fractures of lower vertebral thoracic bodies, T9-T10 seemed to be worse PFSH Medical History (Updated 03/28/24 @ 03:34 by Micky Thorne MD) Urinary incontinence Hyponatremia CKD stage 3b, GFR 30-44 ml/min History of COVID-19 (06/2022) Depression Easy bruisability Itching Osteoarthritis Breast cancer, right (~2017) HLD (hyperlipidemia) COPD (chronic obstructive pulmonary disease) Hearing impaired Neuropathy TIA (transient ischemic attack) Wrist fracture, left Hypertension Malignant neoplasm of right female breast Surgical History (Updated 01/09/23 @ 12:43 by Luis Cota MD) H/O right wrist surgery H/O left wrist surgery (03/2022) Hx of bladder repair surgery Hx of colonoscopy with polypectomy (2021) Hx of bilateral cataract extraction History of total right hip replacement History of hysterectomy Hx of right mastectomy (~08/20/17) Family History Father No problems noted. Mother No problems noted. Social History household members: children Smoking Status: Former smoker alcohol intake: current Meds Home Medications and Allergies Home Medications Medication Instructions Recorded Confirmed Type sertraline 50 mg tablet 50 mg PO DAILY ##0 12/23/06 03/27/24 History lisinopril 10 mg tablet 10 mg PO BID 12/06/17 03/27/24 History fesoterodine 4 mg tablet,extended 4 mg PO DAILY 04/01/22 03/27/24 History release 24 hr (Sarah haywood #1 ea 04/01/22 03/27/24 Rx diphenhydramine HCl 25 mg tablet 50 mg PO BID 10/03/22 03/27/24 History (Allergy Relief (diphenhydramine)) ibuprofen 400 mg tablet 400 mg PO Q4H #120 tabs 10/14/22 03/27/24 Rx acetaminophen 325 mg tablet 650 mg PO Q6H PRN Pain (Scale 03/27/24 03/27/24 History Score 4-6) aspirin 81 mg tablet,delayed 81 mg PO NOW 03/27/24 03/27/24 History release docusate sodium 100 mg capsule 100 mg PO DAILY 03/27/24 03/27/24 History Allergies Allergy/AdvReac Type Severity Reaction Status Date / Time No Known Drug Allergies Allergy Verified 03/27/24 13:36 Review of Systems Constitutional Comments: w/o fever or chills ENT Comments: chronic hearing loss Cardiovascular Comments: w/o chest pain or palpitations Respiratory Comments: short of breath Gastrointestinal Comments: w/o abdominal pain Genitourinary Comments: incontinent Exam Vital Signs (past 8 hours): - 03/27/24 19:28 03/27/24 19:28 03/27/24 19:30 Temperature Pulse Rate 65 61 Respiratory Rate Blood Pressure 233/93 H Pulse Oximetry 94 93 Oxygen Delivery Method Oxygen Flow Rate 03/27/24 19:30 03/27/24 19:46 03/27/24 19:46 Temperature Pulse Rate 57 L Respiratory Rate Blood Pressure 206/93 H 194/77 H Pulse Oximetry 95 Oxygen Delivery Method Oxygen Flow Rate 03/27/24 20:00 03/27/24 20:00 03/27/24 20:16 Temperature Pulse Rate 58 L Respiratory Rate Blood Pressure 170/74 H 202/86 H Pulse Oximetry 90 L Oxygen Delivery Method Oxygen Flow Rate 03/27/24 20:16 03/27/24 20:30 03/27/24 20:30 Temperature Pulse Rate 64 58 L Respiratory Rate Blood Pressure 194/77 H Pulse Oximetry 92 94 Oxygen Delivery Method Oxygen Flow Rate 03/27/24 20:46 03/27/24 20:46 03/27/24 20:55 Temperature 96.7 F L Pulse Rate 64 78 Respiratory Rate 18 Blood Pressure 150/64 H 157/78 H Pulse Oximetry 94 94 Oxygen Delivery Method Oxygen Flow Rate 0 03/27/24 22:30 Temperature Pulse Rate Respiratory Rate Blood Pressure Pulse Oximetry Oxygen Delivery Method Room Air Oxygen Flow Rate Oxygen Delivery Method Room Air Oxygen Flow Rate 0 Narrative Exam Narrative: in no distress, appears sleepy, tired HENMT Other: normocephalic Resp Other: normal respiratory effort, + rales Cardio Other: RRR GI Other: abdomen not distended or tender Extrem Other: bipedal edema Psych Other: flat affect, oriented, lucid Objective Labs 03/27/24 15:31 03/27/24 15:31 Labs: Laboratory Results - last 24 hr 03/27/24 03/27/24 15:31 19:12 WBC 6.1 RBC 3.43 L Hgb 10.9 L Hct 31.5 L MCV 91.8 MCH 31.6 MCHC 34.5 RDW 12.7 Plt Count 225 Neut % (Auto) 54.5 Lymph % (Auto) 25.9 [place] % (Auto) 10.2 Eos % (Auto) 8.3 H Baso % (Auto) 1.1 Neut # (Auto) 3300 Lymph # (Auto) 1600 [place] # (Auto) 600 Eos # (Auto) 500 H Baso # (Auto) 100 PT 10.9 INR 1.0 APTT 34 Sodium 130 L Potassium 3.8 Chloride 98 Carbon Dioxide 26 BUN 26 H Creatinine 1.35 H Estimated GFR 39 L BUN/Creatinine Ratio 19.3 Glucose 73 L Calcium 10.4 H Magnesium 1.8 Total Bilirubin 0.4 AST 33 ALT 19 Alkaline Phosphatase 68 Total Creatine Kinase 37 Troponin I < 0.012 NT-Pro-B Natriuret Pep 1220 H Total Protein 6.8 Albumin 4.0 Globulin 2.8 Albumin/Globulin Ratio 1.4 Lipase 84 Urine Color Yellow Urine Appearance Clear Urine pH 7.0 Ur Specific [place] 1.010 Urine Protein Negative Urine Glucose (UA) Negative Urine Ketones Negative Urine Occult Blood Negative Urine Nitrate Negative Urine Bilirubin Negative Urine Urobilinogen 0.2 Ur Leukocyte Esterase Negative Urine RBC None seen Urine WBC None seen Ur Squamous Epith Cells None seen Urine Bacteria None seen Ur Culture Indicated? Cult not indicated Vol Urine Centrifuged 10ml (spun) Assessment & Plan Assessment and plan (1) Femoral loosening of prosthetic right hip: Qualifiers: Encounter type: initial encounter Qualified Code(s): T84.030A - Mechanical loosening of internal right hip prosthetic joint, initial encounter Status: Acute (2) Intractable pain: Status: Acute (3) Impaired mobility and ADLs: Status: Acute (4) CKD stage 3b, GFR 30-44 ml/min: Status: Acute (5) Anemia in CKD (chronic kidney disease): Status: Chronic (6) Hypertension: Status: Acute (7) Hyponatremia: Status: Acute (8) Urinary incontinence: Status: Acute (9) Depression: Status: Acute Assessment & Plan narrative: Rt DEBRA femoral loosening - pain management, PT, OT assessment - could need SNF and outpt followup with orthopedic surgery HTN / CKD 3b / Anemia of CKD - stable,HH better then after recent Lt hip surgery, GFR same - Lisinopril 10 mg bid, hypertensive in ED - elevated BNP, bipedal swelling - mild fluid overload, w/o pulmonary edema - Is/Os and diuretic as needed Urinary Incontinence - Detrol Depression - Zoloft Hyponatremia - chronic, likely from Zoloft, mild DVT prophylaxis - Lovenox Time-Based Coding :: [TOTAL MINUTES] spent with patient and on the chart (including review of chart, obtaining history, exam, reviewing outside data, placing orders, documenting exam and treatment plan, and counseling patient) on [DATE].
[2024-03-28 05:12] LABS: Add Manual Diff / Slide Review NO; Basophils Absolute Auto 100 /uL (0-100); Basophils Percent Auto 1.2 % (0-2); Eosinophils Absolute Auto 700 /uL (0-450); Eosinophils Percent Auto 12.6 % (2-4); Hematocrit 28.4 % (36-46); Hemoglobin 9.8 g/dL (12.0-16.0); Lymphocytes Absolute Auto 1500 /uL (1100-4500); Lymphocytes Percent Auto 27.5 % (25-40); Mean Corpuscular HGB Conc 34.5 % (30-36); Mean Corpuscular Hemoglobin 31.6 PG (26-34); Mean Corpuscular Volume 91.6 fL (80-100); Monocytes Absolute Auto 700 /uL (0-900); Monocytes Percent Auto 12.3 % (3-14); Neutrophils Absolute Auto 2500 /uL (1500-7000); Neutrophils Percent Auto 46.4 % (50-75); Platelet Count 203 X10^3/uL (150-400); Red Cell Distribution Width 12.7 % (11.6-14.8); White Blood Cell Count 5.5 X10^3/uL (4.5-11.0)
[2024-03-28 05:47] LABS: BUN Creatinine Ratio 16.9 (6-22); Blood Urea Nitrogen 24 mg/dL (7-17); Calcium 10.4 mg/dL (8.4-10.2); Carbon Dioxide 24 mmol/L (22-32); Chloride 100 mmol/L (98-107); Estimated Glomerular Filt Rate 36 mL/min (>60); Glucose 89 mg/dL (80-110); HEMOLYSIS < 15 (0-50); Sodium 129 mmol/L (137-145)
[2024-03-28 07:49] VITALS: BP 166/67; PULSE 61; RESP 16; TEMP 36.2; O2SAT 93
[2024-03-28] MEDS: OXYBUTYNIN 5 MG ER TAB PO (08:48)
[2024-03-28] MEDS: ACETAMINOPHEN 325 MG TABLET 650 MG PO ×2 (08:48→17:16)
[2024-03-28] MEDS: lisinopriL 10 MG TABLET PO ×2 (08:48→20:30)
[2024-03-28] MEDS: SERTRALINE 50 MG TABLET PO (08:48)
[2024-03-28] MEDS: ENOXAPARIN 30 MG/0.3 ML SYRINGE SUBCUT (08:48)
[2024-03-28] MEDS: DOCUSATE 100 MG CAPSULE PO (10:54)
--- NOTE | 2024-03-28 11:00 | OT.IP.EVAL ---
Current Diagnoses Anemia in chronic kidney disease (03/27/24) Hypo-osmolality and hyponatremia (03/27/24) Depression, unspecified (03/27/24) Essential (primary) hypertension (03/27/24) Chronic kidney disease, stage 3b (03/27/24) Chronic kidney disease, unspecified (03/27/24) Unspecified urinary incontinence (03/27/24) Pain, unspecified (03/27/24) Mechanical loosening of internal right hip prosthetic joint, initial encounter (03/27/24) Other reduced mobility (03/27/24) Other specified health status (03/27/24) Past Medical History (Last Updated 03/28/24 @ 03:34 by Micky Thorne MD) Breast cancer, right (~2017) CKD stage 3b, GFR 30-44 ml/min COPD (chronic obstructive pulmonary disease) Depression Easy bruisability Hearing impaired History of COVID-19 (06/2022) HLD (hyperlipidemia) Hypertension Hyponatremia Itching Malignant neoplasm of right female breast Neuropathy Osteoarthritis TIA (transient ischemic attack) Urinary incontinence Wrist fracture, left Surgical History (Last Reviewed 10/17/22 @ 07:39 by Sandro Blevins PA-C) H/O left wrist surgery (03/2022) H/O right wrist surgery History of hysterectomy History of total right hip replacement Hx of bilateral cataract extraction Hx of bladder repair surgery Hx of colonoscopy with polypectomy (2021) Hx of right mastectomy (~08/20/17) Occupational Therapy Inpatient Evaluation/Re-Eval M1 PT/OT-IP Prior Functional Status Start: 03/28/24 09:55 Freq: NEEDED Status: Active Protocol: Document 03/28/24 13:10 [facility] (Rec: 03/28/24 13:32 [facility] [id number]) Medical Review Prior Functional Status Medical History Reviewed Yes Communication Daughters state that pt is having progressive challenges with swallowing Mobility and Gait Assistance for all mobility at home and daughters occasionally assisting to move her legs d/t reports that she is freezing at home and pt uses 4WRW Activities of Daily Living and IADL's Assistance for all ADLs from daughters Social History Household Members children Living Arrangements House Number of Floors (Floors) One Floor Number of Stairs To Enter/Railing? 2 steps with left rail to enter Home Environment High Toilet,Walk in Shower Home Equipment Four Wheel Walker,Shower Seat with Backrest,Hand Held Shower ,Lift Recliner,Grab Bars In Shower Employment Status Retired Additional Social History Comment Adjustable bed M2 OT-IP Current Condition Start: 03/28/24 13:10 Freq: Status: Active Protocol: Document 03/28/24 13:10 [facility] (Rec: 03/28/24 13:32 [facility] [id number]) Occupational Therapy Current Condition Current Condition Evaluation Date 03/28/24 Treatment Diagnosis Mechanical loosening of internal R Hip prothetic/ UTI Diagnosis Onset Date 03/27/24 Weight Bearing Status Allowed Weight Bearing Amount (enter % Physician to clarify WB status or #) (%) and therefore ok to just get pt to the edge of the bed. M3 OT- IP Subjective and Pain Start: 03/28/24 13:10 Freq: Status: Active Protocol: Document 03/28/24 13:10 [facility] (Rec: 03/28/24 13:32 [facility] [id number]) OT- Subjective Occupational Therapy Visit Type Type Initial Evaluation Visit Start Time 10:25 Visit Stop Time 11:00 Occupational Therapy Visit Comments Patient Comments Pt agreed to try to get up. Patient/Caregiver Goals TO get better. OT Pain Assessment Pain When Pain Assessed At Rest Pain Present Pain Present Denied Pain M4 OT- IP ADL's Start: 03/28/24 13:10 Freq: Status: Active Protocol: Document 03/28/24 13:10 [facility] (Rec: 03/28/24 13:32 [facility] [id number]) OT [id number] Comments OT Self-Feeding Comments Not at meal time. Noted coughing while drinking water. Pt's family states has difficulty with peanuts. Pt may benefit from a MANAGEMENT EXPERT assessment. OT ADL-Grooming Comments OT Grooming Comments Not performed. OT ADL-Oral Care Comments Oral Care Comments Not performed. OT ADL-Dressing General Eval Lower Body Dressing Ability Maximum Assistance Areas Needing Assistance Socks OT ADL-Toileting General Evaluation Toileting Ability Total Assistance Comments OT Toileting Comments Use of purewick at this time. OT ADL-Bathing Comments OT Bathing Comments Sponge bath more appropriate at this time. M5 OT- IP IADL's Start: 03/28/24 13:10 Freq: Status: Active Protocol: Document 03/28/24 13:10 [facility] (Rec: 03/28/24 13:32 [facility] [id number]) OT-Instrumental Activities of Daily Living Deficits IADL Deficits Identified Deficits Home Safety Awareness Awareness of Need for Assistance at Home Good Awareness Home Safety Comments Pt's family assists with all her needs at home and has been progressively assisting her more at this time. Medication Management Medication Management Caregiver Administers Money Management Money Management Caregiver Provides Assistance Meal Preparation Meal Preparation Caregiver Provides Assist Gravity Manager Gravity Manager Caregiver Provides Assist M6 OT- IP Functional Cognition Start: 03/28/24 13:10 Freq: Status: Active Protocol: Document 03/28/24 13:10 [facility] (Rec: 03/28/24 13:32 [facility] [id number]) Cognitive Factors Limiting Selfcare Function Cognitive Ability Level of Alertness Alert Patient Orientation Name Attention Span Ability Capable of Focused Attention, Capable of Sustained Attention Ability to Follow Commands Able to Follow One Step Commands with Increased Time, Able to Follow One Step Commands with Repetition Cognitive Comments Cognitive Assessment Comments Pt able to follow commands for mobility needs. Pt having decreased awareness of midline and body positioning at this time. Pt not aware that she is leaning backwards while seated on the bed. Pt needing cues for hand placement and overall safety. Pt would benefit from a cognitive evaluation. OT- Vision and Hearing OT- Hearing Assessment OT- Hearing Assessment WFL OT- Vision Assessment Visual Acuity Glasses All The Time Visual Attentiveness WFL Occular Pursuits WFL M7 OT- IP Mobility and Balance Start: 03/28/24 13:10 Freq: Status: Active Protocol: Document 03/28/24 13:10 [facility] (Rec: 03/28/24 13:32 [facility] [id number]) OT- Bed Mobility Assessment Supine to Sit Supine to Sit Assist Minimal Assistance Sit to Supine Sit to Supine Assist Maximum Assistance Scooting Scooting to Edge of Bed Minimal Assistance OT-Transfer Assessment Comments Mobility Comments RENNY to help get to the edge of the bed from supine. MAXA for to help get back into bed. Assist for her trunk and legs. OT- Balance Assessment Sitting Balance and Reactions Static Sitting Balance Ability Poor Dynamic Sitting Balance Ability Poor Comments Other Balance Tests/Deviations/Treatment Pt sits with posterior tilt : and MODA to help from falling backwards. Pt is unaware of lack of midline at this time. M8 OT- IP Objective Assessments Start: 03/28/24 13:10 Freq: Status: Active Protocol: Document 03/28/24 13:10 [facility] (Rec: 03/28/24 13:32 [facility] [id number]) OT Gross Range of Motion Upper Extremity Range of Motion Assessment Within Functional Limits ROM Impairments Except right 3rd finger trigger finger. OT Strength Upper Extremity Strength Assessment Within Functional Limits Comments Strength Comments BUE 4-/5 to 4/5 OT- Coordination Assessment Upper Extremity Finger to Nose Test Bilateral UE Impaired Comments Coordination Comments Right hand more impaired than left hand. Left hand tremors slightly. M9 OT- IP Assessment and Plan Start: 03/28/24 13:10 Freq: Status: Active Protocol: Document 03/28/24 13:10 [facility] (Rec: 03/28/24 13:32 [facility] [id number]) OT Summary Assessment and Plan Potential Rehabilitation Potential Fair Analytic Complexity at Evaluation High Summary OT Impairments Range of Motion,Strength, Balance,Coordination, Functional Cognition, Functional Mobility,Self- Feeding,Grooming,Dressing, Toileting,Bathing,Toilet Transfers,Shower Transfers, Activity Tolerance Progress Towards Goals Slow Progress due to Medical Issues,Slow Progress due to Activity Tolerance,Slow Progress due to Cognition Assessment Summary Pt HIgh complexity and main barriers are decreased balance , strength, decreased awareness of her positioning in space and per family progressively declining and needing more assist with needs . Pt here due to UTI, loosening of right hip joint and seems to have also neurological symptoms.Pt will benefit from skilled rehab prior to going home to a supportive family. Goals Self-Feeding Goal Standby Assistance Grooming Goal Standby Assistance Dressing Goal Moderate Assistance Toileting Goal Moderate Assistance Bathing Goal Moderate Assistance Toilet Transfer Goal Minimal Assistance Shower Transfer Goal Moderate Assistance Days to Meet Goals 25 Frequency of Treatment Other frequency 5x/week Treatment Plan OT Treatment Plan ADL Training,Functional Cognition Training,Functional Mobility,Patient/Family Education,Discharge Planning Discharge Recommendations OT Discharge Recommendations SNF Rehab Transportation Needs at Discharge Wheelchair/Cabulance,Stretcher /Ambulance
--- NOTE | 2024-03-28 11:24 | PT.IIE ---
Current Diagnoses Anemia in chronic kidney disease (03/27/24) Hypo-osmolality and hyponatremia (03/27/24) Depression, unspecified (03/27/24) Essential (primary) hypertension (03/27/24) Chronic kidney disease, stage 3b (03/27/24) Chronic kidney disease, unspecified (03/27/24) Unspecified urinary incontinence (03/27/24) Pain, unspecified (03/27/24) Mechanical loosening of internal right hip prosthetic joint, initial encounter (03/27/24) Other reduced mobility (03/27/24) Other specified health status (03/27/24) Surgical History (Last Reviewed 10/17/22 @ 07:39 by Sandro Blevins PA-C) H/O left wrist surgery (03/2022) H/O right wrist surgery History of hysterectomy History of total right hip replacement Hx of bilateral cataract extraction Hx of bladder repair surgery Hx of colonoscopy with polypectomy (2021) Hx of right mastectomy (~08/20/17) Medical History (Last Updated 03/28/24 @ 03:34 by Micky Thorne MD) Breast cancer, right (~2017) CKD stage 3b, GFR 30-44 ml/min COPD (chronic obstructive pulmonary disease) Depression Easy bruisability Hearing impaired History of COVID-19 (06/2022) HLD (hyperlipidemia) Hypertension Hyponatremia Itching Malignant neoplasm of right female breast Neuropathy Osteoarthritis TIA (transient ischemic attack) Urinary incontinence Wrist fracture, left Physical Therapy Inpatient Evaluation/Re-Eval M1 PT/OT-IP Prior Functional Status Start: 03/28/24 09:55 Freq: NEEDED Status: Active Protocol: Document 03/28/24 10:30 [facility] (Rec: 03/28/24 11:24 [facility] [id number]) Medical Review Prior Functional Status Medical History Reviewed Yes Communication Daughters state that pt is having progressive challenges with swallowing Mobility and Gait Assistance for all mobility at home and daughters occasionally assisting to move her legs d/t reports that she is freezing at home and pt uses 4WRW Activities of Daily Living and IADL's Assistance for all ADLs from daughters Social History Household Members children Living Arrangements House Number of Floors (Floors) One Floor Number of Stairs To Enter/Railing? 2 steps with left rail to enter Home Environment High Toilet,Walk in Shower Home Equipment Four Wheel Walker,Shower Seat with Backrest,Hand Held Shower ,Lift Recliner,Grab Bars In Shower Employment Status Retired Additional Social History Comment Adjustable bed M2 PT-IP Current Condition Start: 03/28/24 09:55 Freq: NEEDED Status: Active Protocol: Document 03/28/24 10:30 [facility] (Rec: 03/28/24 11:24 MB [id number]) Physical Therapy Current Condition Current Condition Evaluation Date 03/28/24 Treatment Diagnosis Progressive weakness, right groin pain, fall 2 weeks ago M3 PT-IP Subjective Start: 03/28/24 09:55 Freq: NEEDED Status: Active Protocol: Document 03/28/24 10:30 [facility] (Rec: 03/28/24 11:24 MB [id number]) Subjective Physical Therapy Visit Type Type Initial Evaluation Visit Start Time 10:30 Visit Stop Time 10:56 Number of VOIP NETWORK ENGINEER Visits 0 Physical Therapy Visit Comments Patient Comments Pt and two daughters nearby for assessment and they describe progressive decline in pt's mobility and c/o right groin pain, even before fall at their brother's house two weeks ago. Therapy Pain Assessment Pain When Pain Assessed During Mobility Pain Present Pain Present Pain Reported Location Right groin Intensity 6 Scale Used Hodgson-Byers (Faces) Description Acute Pain Behaviors Facial Grimacing,Guarding, Holding Area M4 PT-IP Mobility and Gait Start: 03/28/24 09:55 Freq: NEEDED Status: Active Protocol: Document 03/28/24 10:30 [facility] (Rec: 03/28/24 11:24 MB [id number]) PT-Bed Mobility Assessment Rolling Type of Rolling Log Rolling,Bilateral Level of Assist Minimal Assistance,1 Person Assistance Supine to Sit Supine to Sit Minimal Assistance,1 Person Assistance,Head of Bed Elevated,Bedrails Sit to Supine Sit to Supine Maximum Assistance,1 Person Assistance,Bedrails Scooting Scooting to Edge of Bed Minimal Assistance Scooting Up and Down in Bed Minimal Assistance Gait Assessment Comments Gait Comments Dr. Colby communicating with ortho about WB and still not received at home of eval and so got pt to EOB only Pt grimaces and points to right groin after mini bridge in the bed, she does not grimace with feet on floor and lateral scooting to the right moving up to HOB PT-Balance Assessment Sitting Balance and Reactions Static Sitting Balance Ability Poor Dynamic Sitting Balance Ability Poor Comments Other Balance Tests/Deviations/Treatment Posterior lean and decreased : awareness of posterior lean in sitting and occ CGA and cues to stay upright. BP and HR in LUE: supine 159/ 63, 59; sitting 174/74, 65 and no c/o light-headedness with sitting up or when remaining in sitting M5 PT-IP Objective Assessments Start: 03/28/24 09:55 Freq: NEEDED Status: Active Protocol: Document 03/28/24 10:30 MB (Rec: 03/28/24 11:24 MB [id number]) Orientation Orientation/Cognition Level of Alertness Alert Orientation Name Language Function Ability Hard of Hearing Safety Awareness Decreased Safety Awareness Comments Daughter answers most PLOF questions today and further cognitive assessment by OT next date Gross Range of Motion Upper Extremity ROM Impairments Defer to OT and pt had 3rd finger trigger finger right hand, right restricted limb and left shoulder discomfort with ROM testing Lower Extremity ROM Assessment Right Impaired Impairments LLE functional and grimacing pain and pointing to right groin with attempted right SLR Strength Lower Extremity Strength Assessment Right Impaired Hip B hips not tested Knee Left knee 5/5, right knee not tested Ankle B great toe extension and DF 5 /5 Coordination Assessment Gross Coordination Gross Coordination Impaired Assessment Finger to Nose Test Moderate Impairment Coordination Comments Poor proprioception with checking EC and touching nose both hands and mild tremoring noticed in left hand with finger to nose Sensation Assessment Sensation Gross Sensation Right LE Impaired,Left LE Impaired Comments Sensation Comments Pt reports neuropathy both feet and decreased sensation Muscle Tone Muscle Tone WNL No Comments Muscle Tone Comments Right third trigger finger M6 PT-IP Treatment Start: 03/28/24 09:55 Freq: NEEDED Status: Active Protocol: Document 03/28/24 10:30 MB (Rec: 03/28/24 11:24 MB [id number]) Physical Therapy Treatment Exercises Exercises Ankle Pumps Other Treatments Other Treatment Performed Ed pt and family that awaiting WB order M7 PT-IP Assessment and Plan Start: 03/28/24 09:55 Freq: NEEDED Status: Active Protocol: Document 03/28/24 10:30 MB (Rec: 03/28/24 11:24 MB [id number]) PT Summary Assessment and Plan Potential Rehabilitation Potential Fair Status of Condition at Evaluation Evolving Summary Impairments Pain,ROM,Strength,Balance, Coordination,Sensation,Tone, Cognition,Bed Mobility, Transfers,Gait,Activity Tolerance Progress Towards Goals Slow Progress due to Pain,Slow Progress due to Activity Tolerance,Slow Progress - Other Assessment Summary Pt is an 83 y/o female whose daughters are nearby during assessment. Daughters are supportive and helpful and describe progressive decline with pt freezing with gait at home and having trouble moving legs and they occ lift her legs. Pt agrees with this. Daughter reports that pt was c/o right groin pain before the fall at pt's son's house two weeks ago. PT does not yet have WB order for right hip and so coordination, range, sensation, strength, and bed mobility and sitting assessed today. Pt has several neurological presentations today including poor proprioception of hands, poor UE coordination, mild left UE tremor, poor sitting balance and awareness with posterior lean and reports of B LE neuropathy. BP does not drop supine to sit. Daughters report some concern about swallowing as well. Next treatment date, recommend assessing gait pattern to see if any ataxic or magnetic gait presents itself as daughters' reports sound like magnetic gait presentation. These functional presentations are suspicious of central findings . Pt with UTI and so maybe she will tolerate more mobility next date as treatment con't. Con't to monitor and recommend SNF at d/c. Consider [facility] ARCHITECT consult in acute setting. Goals Bed Mobility Goal Independent Transfer Goal Standby Assistance,Front Wheeled Walker,Four Wheeled Walker Gait Goal Standby Assistance,Front Wheel Walker,Four Wheel Walker Gait Distance 50 Other Goals Pt will ascend and descend 2 steps with left rail and no more than CGA to allow safe home entrance. Days to Meet Goals 5 Frequency of Treatment Frequency Of Treatment Once a Day Treatment Plan Physical Therapy Treatment Plan Bed Mobility Training,Transfer Training,Gait Training, Therapeutic Exercise,Balance Retraining,Discharge Planning, Hot or Cold Pack,Neuromuscular Re-ed,Coordination Retraining ,Manual Therapy Precautions Other Precautions Unsure WB currently, monitor, no BP RUE Weight Bearing Status Allowed Weight Bearing Amount (enter % See above or #) (%) Recommendations To Nursing Amount of Assist Needed Mechanical Lift Discharge Recommendations PT Discharge Recommendations SNF Rehab Transportation Needs at Discharge Wheelchair/Cabulance
--- NOTE | 2024-03-28 11:26 | CM.DANOTE ---
Patient is an 83 yo female who was admitted INPT Status on 03/27/24 for Hip Pain. Pt has MCR and BX FED for insurance and her PCP is Dr. Johnathan Zhu. EMR was reviewed. Per MD, pt with hip surgery last year in October 2022 and seems to have loosening hardware that is causing pain and consulting with Ortho. Pt with chronic but worsening compression fxs. PT/OT ordered and pending. SW met bedside with pt and her two Dtrs/DPOA 1) Eli ([phone]) and 2) Vivien and explained role and they confirm that pt lives in [place] with her Dtr Eli and son robin and is mostly independent with ADLs and is A&O x3 but pt has had increased pain and has been unable to really ambulate the past few days and needed significant assist. Pt states her Dtr Vivien lives in [place] but comes to visit regularly and pt also has a son who lives locally and can assist at times as well. Pt has a hx of SNF many years ago at [facility] and went she was last admitted last year October 2022 she was able to d/c home with family and Karen . Pt and family had already reached out to [facility] prior to admission anticipating need for SNF. Pt and family in agreement that preference at discharge is SNF at [facility] before return home with family. SW made initial referral to [facility] at [facility] and awaiting review and PT/OT to eval and send those notes to [facility] to confirm they can accept. PASRR done in anticipation of SNF and needs MD signature for exempted hospital discharge for depression. Plan: SW to follow closely for PT/OT eval and recommendations and review by [facility] to confirm if they can accept at d/c. ROSHNI [place] Discharge Planning/Care Management CM Discharge Assessment Start: 03/28/24 11:22 Freq: Status: Active Protocol: Document 03/28/24 11:22 BF (Rec: 03/28/24 11:25 BF [id number]) Discharge Planning Assessment Assigned Manager Materials Management ROSHNI Fitch DPOA/Assigned Designee Name Dtr Eli and Dtr Vivien Contact Information [phone] Advance Directives? No Advance Directives on File Yes History Provided By Patient,Family Member,Medical Record Has Patient been admitted in last 30 No days? Comment last admit October 2022 and went home with family and [facility] Prior Living Arrangements House Household Members children Comment Lives with Dtr Eli and son in law Type of transporation used prior to Relies on Others admit Independent with ADL's Yes: mostly Is patient alert and oriented? Yes Needs Assistance With Meal Prep,Managing Medications ,Home Chores / Shopping Caregiver for Another No DME Already Rented / Owned FWW / Walker Patient/Family Preference Residential Facility Barriers to Discharge No Discharge Plan Residential Facility Transportation Arrangement Facility Van Referrals Initiated Residential If patient plan is SNF: Has PASSR been Yes completed? Medicare Choice List Provided Yes Medicare choice list reviewed on patient,family electronic tablet with SNF/HH Preference [facility] Has Agency SNF been contacted Yes Whiteboard Updated in Patient Room with Yes name and ext. # of Manager Materials Management Review Status In Process Please Provide Date Initial DC 03/28/24 Assessment Was Performed Next Review Type Continued Stay Review
--- NOTE | 2024-03-28 16:49 | P.PN_ITS ---
Subjective Subjective Interval history: Per overnight provider: 83 y/o with PMH of Rt DEBRA, presented with progressive pain of right hip with weight bearing, to the point that she is unable to walk. She had hip surgery years ago and images show lucency and loosening of hardware. ED attending consulted orthopedic surgeon who recommended pain management, PT and outpatient follow up. In October she had Lt hip surgery and her PMH includes chronic anemia, hyponatremia, CKD likely stage 3a, COPD, HTN, TIAs, hearing loss, breast cancer, HLD, depression, urinary incontinence. In addition, CXR shows compression fractures of lower vertebral thoracic bodies, T9-T10 seemed to be worse Update: Patient feels her pain is well controlled today. Did not complain of much pain with ambulation. Struggled with therapy. Therapist noted difficulty with balance and was leaning back, felt etiology may be more centrally located. Exam Vital Signs (past 8 hours): Oxygen Delivery Method Room Air Oxygen Flow Rate 0 Narrative Exam Narrative: Gen: no acute distress CV: RRR no m/r/g Pulm: CTA b/l Ext: trace b/l LE edema Neuro: alert, oriented to person place date, situation. No deficits to light touch in all extremities, no facial droop. LLE is notably weaker compared to L, falling to the bed and barely able to maintain against gravity. Objective Labs 03/28/24 04:50 03/28/24 04:50 Labs: Laboratory Results - last 24 hr 03/27/24 03/28/24 19:12 04:50 WBC 5.5 RBC 3.10 L Hgb 9.8 L Hct 28.4 L MCV 91.6 MCH 31.6 MCHC 34.5 RDW 12.7 Plt Count 203 Neut % (Auto) 46.4 L Lymph % (Auto) 27.5 [place] % (Auto) 12.3 Eos % (Auto) 12.6 H Baso % (Auto) 1.2 Neut # (Auto) 2500 Lymph # (Auto) 1500 [place] # (Auto) 700 Eos # (Auto) 700 H Baso # (Auto) 100 Sodium 129 L Potassium 4.0 Chloride 100 Carbon Dioxide 24 BUN 24 H Creatinine 1.42 H Estimated GFR 36 L BUN/Creatinine Ratio 16.9 Glucose 89 Calcium 10.4 H Urine Color Yellow Urine Appearance Clear Urine pH 7.0 Ur Specific [place] 1.010 Urine Protein Negative Urine Glucose (UA) Negative Urine Ketones Negative Urine Occult Blood Negative Urine Nitrate Negative Urine Bilirubin Negative Urine Urobilinogen 0.2 Ur Leukocyte Esterase Negative Urine RBC None seen Urine WBC None seen Ur Squamous Epith Cells None seen Urine Bacteria None seen Ur Culture Indicated? Cult not indicated Vol Urine Centrifuged 10ml (spun) PFSH Medical History (Updated 03/28/24 @ 03:34 by Micky Thorne MD) Urinary incontinence Hyponatremia CKD stage 3b, GFR 30-44 ml/min History of COVID-19 (06/2022) Depression Easy bruisability Itching Osteoarthritis Breast cancer, right (~2017) HLD (hyperlipidemia) COPD (chronic obstructive pulmonary disease) Hearing impaired Neuropathy TIA (transient ischemic attack) Wrist fracture, left Hypertension Malignant neoplasm of right female breast Surgical History (Updated 01/09/23 @ 12:43 by Luis Cota MD) H/O right wrist surgery H/O left wrist surgery (03/2022) Hx of bladder repair surgery Hx of colonoscopy with polypectomy (2021) Hx of bilateral cataract extraction History of total right hip replacement History of hysterectomy Hx of right mastectomy (~08/20/17) Family History Father No problems noted. Mother No problems noted. Social History household members: children Smoking Status: Former smoker alcohol intake: current Assessment & Plan Assessment & Plan narrative: (1) Femoral loosening of prosthetic right hip: -- pain management, PT, OT assessment appreciated, recommended for SNF - outpt followup with orthopedic surgery, WBAT RLE currently. (2) Impaired mobility and ADLs, LLE weakness and imbalance - with notable LLE weakness on exam today, check MR brain and L spine to rule out central or spinal pathology as to the cause of her weakness. Urinary incontinence is chronic and not new per patient. - UA negative for infection. - had been on antibiotic recently, will stop. 3) CKD stage 3b, GFR 30-44 ml/min: - continue to follow Cr (4) Anemia in CKD (chronic kidney disease): - - stable, HH better then after recent Lt hip surgery, GFR same - slight drop today, no signs or symptoms of bleeding. (5) Hypertension: - continue lisinopril BID (6) Hyponatremia: - chronic, continue to follow (8) Urinary incontinence: - Detrol (9) Depression: - Zoloft 10. History of prior TIA Code: Full, surrogate is patient's daughter DVT: Lovenox daily Dispo: patient admitted under inpatient status. Discharge to SNF, likely 2-3 days pending above evaluation. Additional history obtained via discussions with the patient's daughter, occupational therapist and bedside RN today. These discussions contributed to the creation of the above assessment and plan. I have reviewed patient's presenting documentation, labs, and imaging personally. Time-Based Coding :: [TOTAL MINUTES] spent with patient and on the chart (including review of chart, obtaining history, exam, reviewing outside data, placing orders, documenting exam and treatment plan, and counseling patient) on [DATE].
[2024-03-28 17:50] VITALS: BMI 20.9
--- NOTE | 2024-03-28 18:44 | DI.MRI.S_ITS ---
PROCEDURE: MR LUMBAR SPINE WO CON INDICATIONS: LLE weakness TECHNIQUE: Noncontrast sagittal T1 spin echo and T2 fast echo, sagittal STIR, and T2 fast spin echo through the lumbar spine. In cases with scoliosis, additional coronal T2 fast spin echo may be performed. COMPARISON: None. FINDINGS: Image quality: Excellent. Alignment and Curvature: 4 mm retrolisthesis L1 on L2. Trace retrolisthesis L2 on L3. Trace anterolisthesis L4 on L5. Mild to moderate levocurvature centered at L3-L4. Bone Marrow: Marrow is of normal overall signal. No acute vertebral body compression fractures. Spinal Cord: Conus medullaris terminates at the L1 level. Visualized cord demonstrates normal signal and size. Paraspinous Soft Tissues: No paravertebral masses. T12-L1: Normal appearance. L1-L2: 4 mm retrolisthesis L1 on L2. Posterior disc post osteophyte. Facet hypertrophy. No canal stenosis or significant foraminal stenosis. L2-L3: Trace retrolisthesis of L2 on L3. Disc bulge. Facet hypertrophy. [id number] canal stenosis. Moderate to severe right foraminal narrowing with a degree of right foraminal L2 nerve root impingement. Mild to moderate left foraminal narrowing. L3-L4: Posterior disc bulge. Right greater than left facet and ligament hypertrophy. Moderate to severe canal stenosis. Moderate right foraminal narrowing with flattening deformity on the exiting right L3 nerve root. Left foramen is patent. L4-L5: Disc bulge. Facet and ligament hypertrophy. Moderate canal stenosis. Moderate right foraminal narrowing with flattening deformity on the exiting right L3 nerve root. L5-S1: Disc bulge. Facet hypertrophy. No canal stenosis. [id number] left foraminal stenosis. IMPRESSION: 1. There is diffuse degenerative change with multilevel facet arthropathy present. There is also scoliotic curvature. 2. Canal stenosis is mild to moderate at L2-L3, moderate to severe at L3-L4, and moderate at L4-L5. 3. Multilevel foraminal narrowing as described above. Findings include moderate to severe right foraminal narrowing with a degree of right foraminal L2 nerve root impingement at L2-L3. Dictated by: Foreign Howard M.D. on 03/29/2024 at 15:46 Approved by: Foreign Howard M.D. on 03/29/2024 at 15:52
--- NOTE | 2024-03-28 18:44 | DI.MRI.S_ITS ---
PROCEDURE: MR HEAD/BRAIN WO CON INDICATIONS: LLE weakness TECHNIQUE: Non-contrast axial T1 spin echo, axial T2 fast spin echo, sagittal and axial FLAIR, coronal T2 fast spin echo, axial gradient echo, axial diffusion and ADC through the brain. COMPARISON: None. FINDINGS: Image quality: Excellent. CSF spaces: Ventricles appear symmetric in size and shape. Basal cisterns are patent. No extra-axial fluid collections. Brain: No intracranial bleeds or mass effects. There is cerebral volume loss for age. There are moderate periventricular and deep white matter chronic small vessel ischemic changes. Brainstem appears normal. Diffusion-weighted images show no acute infarct. No chronic ischemic insults. Normal intravascular flow voids are present. Skull and face: Calvarial bone marrow is normal in signal. Orbits are normal. Sinuses: Sinuses and mastoids are clear. IMPRESSION: No acute intracranial process. Age-related volume loss and moderate small vessel ischemic change. Dictated by: Foreign Howard M.D. on 03/29/2024 at 15:44 Approved by: Foreign Howard M.D. on 03/29/2024 at 15:45
[2024-03-28 19:45] VITALS: BP 141/57; PULSE 58; RESP 18; TEMP 36.2; O2SAT 91
[2024-03-28] MEDS: MELATONIN 3 MG TABLET 9 MG PO (20:29)
[2024-03-28 20:30] VITALS: BP 141/57; PULSE 58
[2024-03-28] MEDS: SENNOSIDES 8.6 MG TABLET 17.2 MG PO (20:33)
[2024-03-29 01:57] VITALS: BP 129/63; PULSE 59; RESP 18; TEMP 35.9; O2SAT 95
[2024-03-29] MEDS: ACETAMINOPHEN 325 MG TABLET 650 MG PO (04:24)
[2024-03-29 05:24] LABS: Add Manual Diff / Slide Review NO; Basophils Absolute Auto 100 /uL (0-100); Basophils Percent Auto 1.2 % (0-2); Eosinophils Absolute Auto 700 /uL (0-450); Hematocrit 28.1 % (36-46); Hemoglobin 9.8 g/dL (12.0-16.0); Lymphocytes Absolute Auto 1400 /uL (1100-4500); Lymphocytes Percent Auto 27.8 % (25-40); Mean Corpuscular HGB Conc 34.9 % (30-36); Mean Corpuscular Hemoglobin 31.8 PG (26-34); Mean Corpuscular Volume 91.1 fL (80-100); Monocytes Absolute Auto 600 /uL (0-900); Neutrophils Absolute Auto 2300 /uL (1500-7000); Platelet Count 196 X10^3/uL (150-400); Red Blood Cell Count 3.08 X10^6/uL (4.0-5.2); Red Cell Distribution Width 12.6 % (11.6-14.8)
[2024-03-29 05:35] LABS: BUN Creatinine Ratio 16.1 (6-22); Blood Urea Nitrogen 26 mg/dL (7-17); Calcium 10.4 mg/dL (8.4-10.2); Carbon Dioxide 23 mmol/L (22-32); Chloride 102 mmol/L (98-107); Estimated Glomerular Filt Rate 31 mL/min (>60); Glucose 94 mg/dL (80-110); HEMOLYSIS < 15 (0-50); Potassium 4.3 mmol/L (3.4-5.1); Sodium 130 mmol/L (137-145)
--- NOTE | 2024-03-29 07:48 | PM.PN.1 ---
Subjective Subjective Interval history: Summary: 83 y/o with PMH of Rt DEBRA, presented with progressive pain of right hip with weight bearing, to the point that she is unable to walk. She had hip surgery years ago and images show lucency and loosening of hardware. ED attending consulted orthopedic surgeon who recommended pain management, PT and outpatient follow up. In October she had Lt hip surgery and her PMH includes chronic anemia, hyponatremia, CKD likely stage 3a, COPD, HTN, TIAs, hearing loss, breast cancer, HLD, depression, urinary incontinence. In addition, CXR shows compression fractures of lower vertebral thoracic bodies, T9-T10 seemed to be worse S: She is doing well today. Pain is controlled. No other concerns. Exam Vital Signs (past 8 hours): - 03/29/24 01:57 Temperature 96.6 F L Pulse Rate 59 L Respiratory Rate 18 Blood Pressure 129/63 Pulse Oximetry 95 Oxygen Flow Rate 0 Oxygen Delivery Method Room Air Oxygen Flow Rate 0 Narrative Exam Narrative: NAD, alert and oriented. Fluent speech. Lungs are clear, normal rate and effort. Heart is regular, no murmur gallop or rub. Abdomen is soft, non distended. Extremities are free of edema. Objective Imaging Multiple studies:: Radiologist's impression: LS Spine MRI: 1. There is diffuse degenerative change with multilevel facet arthropathy present. There is also scoliotic curvature. 2. Canal stenosis is mild to moderate at L2-L3, moderate to severe at L3-L4, and moderate at L4-L5. 3. Multilevel foraminal narrowing as described above. Findings include moderate to severe right foraminal narrowing with a degree of right foraminal L2 nerve root impingement at L2-L3. Brain MRI: IMPRESSION: No acute intracranial process. Age-related volume loss and moderate small vessel ischemic change. Labs 03/30/24 04:24 03/30/24 04:24 Labs: Laboratory Results - last 24 hr 03/29/24 04:17 WBC 5.0 RBC 3.08 L Hgb 9.8 L Hct 28.1 L MCV 91.1 MCH 31.8 MCHC 34.9 RDW 12.6 Plt Count 196 Neut % (Auto) 45.0 L Lymph % (Auto) 27.8 [place] % (Auto) 12.0 Eos % (Auto) 14.0 H Baso % (Auto) 1.2 Neut # (Auto) 2300 Lymph # (Auto) 1400 [place] # (Auto) 600 Eos # (Auto) 700 H Baso # (Auto) 100 Sodium 130 L Potassium 4.3 Chloride 102 Carbon Dioxide 23 BUN 26 H Creatinine 1.61 H Estimated GFR 31 L BUN/Creatinine Ratio 16.1 Glucose 94 Calcium 10.4 H PFSH Medical History Urinary incontinence Hyponatremia CKD stage 3b, GFR 30-44 ml/min History of COVID-19 (06/2022) Depression Easy bruisability Itching Osteoarthritis Breast cancer, right (~2017) HLD (hyperlipidemia) COPD (chronic obstructive pulmonary disease) Hearing impaired Neuropathy TIA (transient ischemic attack) Wrist fracture, left Hypertension Malignant neoplasm of right female breast Surgical History H/O right wrist surgery H/O left wrist surgery (03/2022) Hx of bladder repair surgery Hx of colonoscopy with polypectomy (2021) Hx of bilateral cataract extraction History of total right hip replacement History of hysterectomy Hx of right mastectomy (~08/20/17) Family History Father No problems noted. Mother No problems noted. Social History household members: children Smoking Status: Former smoker alcohol intake: current Assessment & Plan Assessment & Plan narrative: (1) Femoral loosening of prosthetic right hip, present on admission and active. -- pain management, PT, OT assessment appreciated, recommended for SNF - outpt followup with orthopedic surgery, WBAT RLE currently. (2) Impaired mobility and ADLs, LLE weakness and imbalance, present on admission and active. - with notable LLE weakness on exam today, check MR brain and L spine to rule out central or spinal pathology as to the cause of her weakness. Urinary incontinence is chronic and not new per patient. - UA negative for infection. - had been on antibiotic recently, will stop. (3) CKD stage 3b, GFR 30-44 ml/min, present on admission and active. - continue to follow Cr (4) Anemia in CKD (chronic kidney disease), present on admission and active. - - stable, HH better then after recent Lt hip surgery, GFR same - slight drop today, no signs or symptoms of bleeding. (5) Hypertension, present on admission and active. - continue lisinopril BID (6) Hyponatremia, present on admission and active. - chronic, continue to follow (8) Urinary incontinence, present on admission and active. - Detrol (9) Depression, present on admission and active. - Zoloft (10). History of prior TIA, present on admission and active. PLAN: -SNF discharge tomorrow -continue current medications. Code: Full, surrogate is patient's daughter DVT: Lovenox daily Dispo: patient admitted under inpatient status. Discharge to SNF, 1 day. Additional history obtained via discussions with the patient's daughter, occupational therapist and bedside RN today. These discussions contributed to the creation of the above assessment and plan. I have reviewed patient's presenting documentation, labs, and imaging personally. Time-Based Coding :: [TOTAL MINUTES] spent with patient and on the chart (including review of chart, obtaining history, exam, reviewing outside data, placing orders, documenting exam and treatment plan, and counseling patient) on [DATE].
[2024-03-29] MEDS: ENOXAPARIN 30 MG/0.3 ML SYRINGE SUBCUT (08:46)
[2024-03-29] MEDS: SERTRALINE 50 MG TABLET PO (08:46)
[2024-03-29] MEDS: DOCUSATE 100 MG CAPSULE PO (08:46)
[2024-03-29 08:47] VITALS: BP 148/72
[2024-03-29] MEDS: lisinopriL 10 MG TABLET PO ×2 (08:47→20:15)
[2024-03-29] MEDS: OXYBUTYNIN 5 MG ER TAB PO (08:48)
[2024-03-29] MEDS: polyethylene glycoL 3350 17 GM POWD.PACK PO (08:48)
--- NOTE | 2024-03-29 10:14 | PC.NURSE ---
Addendum entered by Bettie Conway R.N. 03/29/24 15:42: Pt medicated prior to MRI. Returned to room, working w/ PT at this time. Denies discomfort at this tiem. Call light w/in reach, pt calls appropriately for needs.. Continue w/plan of care. Original Note: Pt A/O, denies discomfort. SL RH intact/patent. Awaiting MRI this afternoon Call lightn w/in reach. bed alarm on for pt safety.
--- NOTE | 2024-03-29 13:41 | CM.DPC ---
DCP SNF Cont: SW spoke to Fiorella at [facility] and confirmed they can accept pt and can accept tomorrow Sat if stable for d/c and request SW to schedule [facility] paid by [facility] for transport tomorrow. CC Holly kindly called [facility] transport and confirmed they can transport to [facility] tomorrow paid by [facility] and awaiting time of transport Sat and will call back today around 1400 to confirm the time. SW met bedside with pt and updated her on above and she remains agreeable to d/c to [facility] via facility van. signed PASRR for exempted discharge for anxiety. ROSHNI [place]
[2024-03-29] MEDS: LORazepam 2 MG/ML INJ 1 MG IV (14:10)
--- NOTE | 2024-03-29 14:13 | OT.IP.TRT ---
Current Diagnoses Anemia in chronic kidney disease (03/27/24) Hypo-osmolality and hyponatremia (03/27/24) Depression, unspecified (03/27/24) Essential (primary) hypertension (03/27/24) Chronic kidney disease, stage 3b (03/27/24) Chronic kidney disease, unspecified (03/27/24) Unspecified urinary incontinence (03/27/24) Pain, unspecified (03/27/24) Mechanical loosening of internal right hip prosthetic joint, initial encounter (03/27/24) Other reduced mobility (03/27/24) Other specified health status (03/27/24) Occupational Therapy Treatment Note M2 OT-IP Current Condition Start: 03/28/24 13:10 Freq: Status: Active Protocol: Document 03/28/24 13:10 [facility] (Rec: 03/28/24 13:32 [facility] [id number]) Occupational Therapy Current Condition Current Condition Evaluation Date 03/28/24 Treatment Diagnosis Mechanical loosening of internal R Hip prothetic/ UTI Diagnosis Onset Date 03/27/24 Weight Bearing Status Allowed Weight Bearing Amount (enter % Physician to clarify WB status or #) (%) and therefore ok to just get pt to the edge of the bed. M3 OT- IP Subjective and Pain Start: 03/28/24 13:10 Freq: Status: Active Protocol: Document 03/29/24 14:13 [facility] (Rec: 03/29/24 14:22 [facility] [id number]) OT- Subjective Occupational Therapy Visit Type Type Treatment Note Visit Start Time 13:45 Visit Stop Time 14:13 Occupational Therapy Visit Comments Patient Comments Pt agreed to get up. Patient/Caregiver Goals TO get better. OT Pain Assessment Pain When Pain Assessed During Mobility Pain Present Pain Present Pain Reported Location Right Hip Pain Behaviors Facial Grimacing,[place] M4 OT- IP ADL's Start: 03/28/24 13:10 Freq: Status: Active Protocol: Document 03/29/24 14:13 [facility] (Rec: 03/29/24 14:22 [facility] [id number]) OT [id number] Comments OT Self-Feeding Comments Not at meal time. OT ADL-Grooming Comments OT Grooming Comments Not performed. OT ADL-Oral Care Comments Oral Care Comments Not performed. OT ADL-Dressing General Eval Lower Body Dressing Ability Maximum Assistance Areas Needing Assistance Underpants/Brief,Socks OT ADL-Toileting General Evaluation Toileting Ability Maximum Assistance Comments OT Toileting Comments Two person assist to stand and one person to stand with pt while another assists with hygiene and brief management needs. OT ADL-Bathing Comments OT Bathing Comments Sponge bath more appropriate or use of rolling shower chair . M5 OT- IP IADL's Start: 03/28/24 13:10 Freq: Status: Active Protocol: Document 03/28/24 13:10 [facility] (Rec: 03/28/24 13:32 [facility] [id number]) OT-Instrumental Activities of Daily Living Deficits IADL Deficits Identified Deficits Home Safety Awareness Awareness of Need for Assistance at Home Good Awareness Home Safety Comments Pt's family assists with all her needs at home and has been progressively assisting her more at this time. Medication Management Medication Management Caregiver Administers Money Management Money Management Caregiver Provides Assistance Meal Preparation Meal Preparation Caregiver Provides Assist Circular Saw Operator Circular Saw Operator Caregiver Provides Assist M6 OT- IP Functional Cognition Start: 03/28/24 13:10 Freq: Status: Active Protocol: Document 03/29/24 14:13 [facility] (Rec: 03/29/24 14:22 [facility] [id number]) Cognitive Factors Limiting Selfcare Function Cognitive Ability Level of Alertness Alert Patient Orientation Name Attention Span Ability Capable of Focused Attention, Capable of Sustained Attention Ability to Follow Commands Able to Follow One Step Commands with Increased Time, Able to Follow One Step Commands with Repetition Cognitive Comments Cognitive Assessment Comments Pt able to follow commands better today and more alert to be able to pull her core to sit upright with cues. Pt appears to have a little better insight after education of trying to stay forwards for midline. M7 OT- IP Mobility and Balance Start: 03/28/24 13:10 Freq: Status: Active Protocol: Document 03/29/24 14:13 [facility] (Rec: 03/29/24 14:22 [facility] [id number]) OT- Bed Mobility Assessment Supine to Sit Supine to Sit Assist Minimal Assistance Sit to Supine Sit to Supine Assist Maximum Assistance OT-Transfer Assessment Sit to and From Stand Sit to and from Stand Moderate Assistance,2 Person Assistance Transfers Transfer Ability Moderate Assistance,Maximum Assistance,2 Person Assistance Technique Transfer Destination Bed,Bedside Commode Transfer Technique Stand Step Pivot Devices Transfer Assistive Devices Gait Belt,Front Wheeled Walker Comments Mobility Comments Pt now cleared for WBAT. RENNY to assist to get her trunk upright and MAX A to help back to bed via log rolling. MOD A x2 to stand to the FWW and MOD/MAXA x2 to transfer. Pt needing heavy use of her hands on the FWW and able to pick up man her feet for the transfer. OT- Balance Assessment Sitting Balance and Reactions Static Sitting Balance Ability Fair Dynamic Sitting Balance Ability Poor Standing Balance and Reactions Static Standing Balance Ability Poor Dynamic Standing Balance Ability Poor Comments Other Balance Tests/Deviations/Treatment RENNY at time to keep from : falling backwards and able to maintain midline for several seconds at a time. M8 OT- IP Objective Assessments Start: 03/28/24 13:10 Freq: Status: Active Protocol: Document 03/28/24 13:10 [facility] (Rec: 03/28/24 13:32 [facility] [id number]) OT Gross Range of Motion Upper Extremity Range of Motion Assessment Within Functional Limits ROM Impairments Except right 3rd finger trigger finger. OT Strength Upper Extremity Strength Assessment Within Functional Limits Comments Strength Comments BUE 4-/5 to 4/5 OT- Coordination Assessment Upper Extremity Finger to Nose Test Bilateral UE Impaired Comments Coordination Comments Right hand more impaired than left hand. Left hand tremors slightly. M9 OT- IP Assessment and Plan Start: 03/28/24 13:10 Freq: Status: Active Protocol: Document 03/29/24 14:13 [facility] (Rec: 03/29/24 14:22 [facility] [id number]) OT Summary Assessment and Plan Potential Rehabilitation Potential Good Analytic Complexity at Evaluation High Summary OT Impairments Range of Motion,Strength, Balance,Coordination, Functional Cognition, Functional Mobility,Self- Feeding,Grooming,Dressing, Toileting,Bathing,Toilet Transfers,Shower Transfers, Activity Tolerance Progress Towards Goals Slow Progress due to Pain,Slow Progress due to Medical Issues,Slow Progress due to Activity Tolerance,Slow Progress due to Cognition Assessment Summary Pt has been cleared for WBAT and able to sit better but still needing RENNY at time to sit to midline and reminders to activate her core. Two person assist for transfer at this time and able to pick up man her feet but not very high. Pt will benefit from skilled rehab when medically stable. Goals Self-Feeding Goal Independent Grooming Goal Independent Dressing Goal Minimal Assistance Toileting Goal Minimal Assistance Bathing Goal Moderate Assistance Toilet Transfer Goal Contact Guard Assistance Shower Transfer Goal Minimal Assistance Days to Meet Goals 25 Frequency of Treatment Other frequency 5x/week Treatment Plan OT Treatment Plan ADL Training,Functional Cognition Training,Functional Mobility,Patient/Family Education,Discharge Planning Discharge Recommendations OT Discharge Recommendations SNF Rehab Transportation Needs at Discharge Wheelchair/Cabulance
--- NOTE | 2024-03-29 15:25 | PT.IPTN ---
Current Diagnoses Anemia in chronic kidney disease (03/27/24) Hypo-osmolality and hyponatremia (03/27/24) Depression, unspecified (03/27/24) Essential (primary) hypertension (03/27/24) Chronic kidney disease, stage 3b (03/27/24) Chronic kidney disease, unspecified (03/27/24) Unspecified urinary incontinence (03/27/24) Pain, unspecified (03/27/24) Mechanical loosening of internal right hip prosthetic joint, initial encounter (03/27/24) Other reduced mobility (03/27/24) Other specified health status (03/27/24) Physical Therapy Treatment Note M2 PT-IP Current Condition Start: 03/28/24 09:55 Freq: NEEDED Status: Active Protocol: Document 03/28/24 10:30 MB (Rec: 03/28/24 11:24 MB [id number]) Physical Therapy Current Condition Current Condition Evaluation Date 03/28/24 Treatment Diagnosis Progressive weakness, right groin pain, fall 2 weeks ago M3 PT-IP Subjective Start: 03/28/24 09:55 Freq: NEEDED Status: Active Protocol: Document 03/29/24 15:25 AB (Rec: 03/29/24 16:38 AB [id number]) Subjective Physical Therapy Visit Type Type Treatment Note Visit Start Time 15:25 Visit Stop Time 15:50 Number of NIGHT CUSTODIAN Visits 0 Physical Therapy Visit Comments Patient Comments agreeable to do PT M4 PT-IP Mobility and Gait Start: 03/28/24 09:55 Freq: NEEDED Status: Active Protocol: Document 03/29/24 15:25 AB (Rec: 03/29/24 16:38 AB [id number]) PT-Bed Mobility Assessment Supine to Sit Supine to Sit Maximum Assistance,1 Person Assistance,Head of Bed Elevated,Bedrails PT-Transfer Assessment Sit to and From Stand Sit to and from Stand Maximum Assistance,1 Person Assistance,2 Person Assistance ,Use of Upper Extremities Equipment Transfer Assistive Device Gait Belt,Front Wheeled Walker Orthotic/Prosthetic Devices or Brace: No Transfers Transfer Destination Chair Transfer Technique Stand Step Pivot Transfer Ability Level of Assist Maximum Assistance,1 Person Assistance,2 Person Assistance ,Use of Upper Extremities Comments Mobility Comments pt supine in bed and agreeable to do PT. per hospitalist's progress note: pt is WBAT on RLE. completed supine to sit max A and max cues. able to sit on EOB min to mod A and max cues. presents with increase posterior trunk LOB and Lateral side leaning to the L. completed sit to stand max A and cues and pt only tolerated ~ 3 sec of standing and needing to sit down. max A for controlled descent. completed sit to stand again max A x 1-2 and max cues. NAC in room to assist. pt completed step transfer to chair max A x 1-2 and max cues . cued to use UE on FWW for support and needed assist for weight shifting to be able to move LE. pt sat on the chair and rested. agreed to ambulate . completed sit to stand from the chair max A x 1-2 and max cues and ambulated ~ 3 ft using FWW max A x 1-2 and max cues and chair follow. presents with increase BLE ER with unsteady shuffling gait. positioned pt on the chair. call light and table placed within reach. Gait Assessment Gait Gait Assistance Required: Maximum Assistance,1 Person Assist,2 Person Assist Distance (Feet) 3 Able to Maintain Weight Bearing Status Yes During Gait Assistive Devices Assistive Device Gait Belt,Front Wheeled Walker Orthotic/Prosthetic Devices or Brace: No M5 PT-IP Objective Assessments Start: 03/28/24 09:55 Freq: NEEDED Status: Active Protocol: Document 03/28/24 10:30 MB (Rec: 03/28/24 11:24 MB [id number]) Orientation Orientation/Cognition Level of Alertness Alert Orientation Name Language Function Ability Hard of Hearing Safety Awareness Decreased Safety Awareness Comments Daughter answers most PLOF questions today and further cognitive assessment by OT next date Gross Range of Motion Upper Extremity ROM Impairments Defer to OT and pt had 3rd finger trigger finger right hand, right restricted limb and left shoulder discomfort with ROM testing Lower Extremity ROM Assessment Right Impaired Impairments LLE functional and grimacing pain and pointing to right groin with attempted right SLR Strength Lower Extremity Strength Assessment Right Impaired Hip B hips not tested Knee Left knee 5/5, right knee not tested Ankle B great toe extension and DF 5 /5 Coordination Assessment Gross Coordination Gross Coordination Impaired Assessment Finger to Nose Test Moderate Impairment Coordination Comments Poor proprioception with checking EC and touching nose both hands and mild tremoring noticed in left hand with finger to nose Sensation Assessment Sensation Gross Sensation Right LE Impaired,Left LE Impaired Comments Sensation Comments Pt reports neuropathy both feet and decreased sensation Muscle Tone Muscle Tone WNL No Comments Muscle Tone Comments Right third trigger finger M6 PT-IP Treatment Start: 03/28/24 09:55 Freq: NEEDED Status: Active Protocol: Document 03/29/24 15:25 AB (Rec: 03/29/24 16:38 AB [id number]) Physical Therapy Treatment Education Education Provided Safety M7 PT-IP Assessment and Plan Start: 03/28/24 09:55 Freq: NEEDED Status: Active Protocol: Document 03/29/24 15:25 AB (Rec: 03/29/24 16:38 AB [id number]) PT Summary Assessment and Plan Potential Rehabilitation Potential Fair Summary Impairments Pain,ROM,Strength,Balance, Coordination,Sensation,Tone, Cognition,Bed Mobility, Transfers,Gait,Activity Tolerance Progress Towards Goals Slow Progress due to Medical Issues,Slow Progress due to Activity Tolerance,Slow Progress - Other Assessment Summary pt requiring max A x 1-2 and max cues and continues to presents with decrease activity tolerance affecting mobility assistance. pt will benefit from SNF rehab to improve overall strength and function. will continue to assess progress. Goals Bed Mobility Goal Independent Transfer Goal Standby Assistance,Front Wheeled Walker,Four Wheeled Walker Gait Goal Standby Assistance,Front Wheel Walker,Four Wheel Walker Gait Distance 50 Other Goals Pt will ascend and descend 2 steps with left rail and no more than CGA to allow safe home entrance. Days to Meet Goals 5 Frequency of Treatment Frequency Of Treatment Once a Day Treatment Plan Physical Therapy Treatment Plan Bed Mobility Training,Transfer Training,Gait Training, Therapeutic Exercise,Balance Retraining,Discharge Planning, Hot or Cold Pack,Neuromuscular Re-ed,Coordination Retraining ,Manual Therapy Precautions Other Precautions no BP on RUE Weight Bearing Status Weight Bearing Status Weight Bear as Tolerated Allowed Weight Bearing Amount (enter % RLE WBAT or #) (%) Recommendations To Nursing Amount of Assist Needed 2 Person Assist Discharge Recommendations PT Discharge Recommendations SNF Rehab Transportation Needs at Discharge Wheelchair/Cabulance
--- NOTE | 2024-03-29 15:35 | DIET.CONS ---
Dietary Consultation Note Admission Date: 03/27/2024 19:59 Assessment: 83 y F admitted with hip pain. Nutrition screened for low MNA. Met with pt at bedside. Pt reports normal appetite before admission, consuming 2-3 meals/d. Reports recent weight gain. Unsure UBW. Avg recorded po intakes: 80%. DFM reviewed for meal composition. BMI underweight for age. Encouraged sufficient energy-protein intakes. Will monitor po intakes and add ONS as needed. Ht: 180.34 cm Wt: 68.039 kg BMI: 20.9 UBW: 68.4 kg on 01/30/23 Last BM: 03/29/24 (03/29/24 11:10) MNA: 6 Neville Score: 17 Diet: 03/28/24 Breakfast General (Regular) Diet Diet Modifications: Nutrition Percent Meal Consumed 100% 03/29/24 13:17 Percent Meal Consumed 50% 03/29/24 09:14 Percent Meal Consumed 100% 03/28/24 17:53 Percent Meal Consumed 75% 03/28/24 12:42 Labs: RBC 3.08 X10^6/uL (4.0-5.2) L 03/29/24 04:17 Hgb 9.8 g/dL (12.0-16.0) L 03/29/24 04:17 Hct 28.1 % (36-46) L 03/29/24 04:17 Creatinine 1.61 mg/dL (0.52-1.04) H 03/29/24 04:17 NT-Pro-B Natriuret Pep 1220 pg/mL (<450) H 03/27/24 15:31 Electronically Signed by: Landy Garibay 03/29/24 15:35 Clinical Dietitian [address] [address]
[2024-03-29 19:00] VITALS: BP 154/64; PULSE 54; RESP 18; TEMP 36.2; O2SAT 96
[2024-03-29 19:19] VITALS: BP 148/72; PULSE 55; RESP 19; TEMP 36.1; O2SAT 98
[2024-03-29 20:15] VITALS: BP 148/72; PULSE 55
[2024-03-29] MEDS: cephALEXin 250 MG CAPSULE PO (20:15)
[2024-03-30 01:00] VITALS: BP 171/69; PULSE 56; RESP 18; TEMP 36.1; O2SAT 93
[2024-03-30 02:00] VITALS: BP 131/60
[2024-03-30 05:13] LABS: Add Manual Diff / Slide Review NO; Basophils Absolute Auto 100 /uL (0-100); Basophils Percent Auto 1.9 % (0-2); Eosinophils Absolute Auto 600 /uL (0-450); Eosinophils Percent Auto 14.8 % (2-4); Hematocrit 29.2 % (36-46); Lymphocytes Absolute Auto 1300 /uL (1100-4500); Lymphocytes Percent Auto 29.4 % (25-40); Mean Corpuscular HGB Conc 34.2 % (30-36); Mean Corpuscular Hemoglobin 31.3 PG (26-34); Mean Corpuscular Volume 91.6 fL (80-100); Monocytes Absolute Auto 500 /uL (0-900); Monocytes Percent Auto 12.5 % (3-14); Neutrophils Absolute Auto 1800 /uL (1500-7000); Neutrophils Percent Auto 41.4 % (50-75); Platelet Count 200 X10^3/uL (150-400); Red Blood Cell Count 3.19 X10^6/uL (4.0-5.2); Red Cell Distribution Width 12.6 % (11.6-14.8); White Blood Cell Count 4.3 X10^3/uL (4.5-11.0)
[2024-03-30 05:24] LABS: BUN Creatinine Ratio 17.5 (6-22); Blood Urea Nitrogen 24 mg/dL (7-17); Calcium 10.6 mg/dL (8.4-10.2); Carbon Dioxide 23 mmol/L (22-32); Chloride 101 mmol/L (98-107); Estimated Glomerular Filt Rate 38 mL/min (>60); Glucose 92 mg/dL (80-110); HEMOLYSIS < 15 (0-50); Potassium 4.2 mmol/L (3.4-5.1); Sodium 130 mmol/L (137-145)
[2024-03-30 08:00] VITALS: BP 175/77; PULSE 52; RESP 17; TEMP 35.6; O2SAT 96
--- NOTE | 2024-03-30 08:08 | PM.DS.1 ---
History of Present Illness History of Present Illness Chief complaint: R Hip Pain Narrative: From H&P: 83 y/o with PMH of Rt DEBRA, presented with progressive pain of right hip with weight bearing, to the point that she is unable to walk. She had hip surgery years ago and images show lucency and loosening of hardware. ED attending consulted orthopedic surgeon who recommended pain management, PT and outpatient follow up. In October she had Lt hip surgery and her PMH includes chronic anemia, hyponatremia, CKD likely stage 3a, COPD, HTN, TIAs, hearing loss, breast cancer, HLD, depression, urinary incontinence. In addition, CXR shows compression fractures of lower vertebral thoracic bodies, T9-T10 seemed to be worse. Discharge Providers Provider Date of admission: 03/27/24 19:59 Discharge Date: 03/30/24 Primary care physician: Johnathan Zhu MD Consults: 03/27/24 21:00 Consult to Physical Therapy Evaluate & Treat Comment: Physician Instructions: Evaluate and Treat 03/28/24 03:44 Consult to Occupational Therapy Evaluate & Treat Comment: Physician Instructions: Evaluate and treat Orthopedics (See H&P comments). Discharge provider: Shakeel Aviles MD Summary Hospital Course Discharge Diagnosis: (1) Femoral loosening of prosthetic right hip, present on admission and active. -- pain management, PT, OT assessment appreciated, recommended for SNF - outpt followup with orthopedic surgery, WBAT RLE currently. (2) Impaired mobility and ADLs, LLE weakness and imbalance, present on admission and active. - with notable LLE weakness on exam today, check MR brain and L spine to rule out central or spinal pathology as to the cause of her weakness. Urinary incontinence is chronic and not new per patient. (3) CKD stage 3b, GFR 30-44 ml/min, present on admission and active. - stable (4) Anemia in CKD (chronic kidney disease), present on admission and active. - - stable, HH better then after recent Lt hip surgery, GFR same - slight drop today, no signs or symptoms of bleeding. (5) Hypertension, present on admission and active. - continue lisinopril BID (6) Hyponatremia, present on admission and active. - chronic, continue to follow (8) Urinary incontinence, present on admission and active. - Detrol (9) Depression, present on admission and active. - Zoloft (10). History of prior TIA, present on admission and active. (11). Recent UTI, present on admission and active. Hospital Course: She was admitted with evidence of loosening of her prosthetic right hip. This was discussed at the time of admission with Orthopedics. They recommended weight-bearing as tolerated and pain management with outpatient follow up. The patient was evaluated by Physical therapy and felt to be a good candidate for rehabilitation for gait instability and hip pain. She had been on antibiotics prior to admission and these will be continued for an additional 5 days. Other issues were chronic and compensated and no other medication changes were made. Her cephalexin was dosed for her renal function. She does have stage IIIB chronic kidney disease. She did have imaging to rule out stroke with MRI of the brain as well as an LS MRI. This did reveal no evidence of stroke and severe spinal stenosis. Imaging of her hip was significant and consistent with loosening of her prosthesis. Status at Discharge Cognitive/behavioral status at discharge: oriented Functional status at discharge: uses cane/walker Overall status at discharge: patient is progressing back to baseline Time Spent with Patient Time spent: Greater than 30 minutes Exam Vital Signs (past 8 hours): - 03/30/24 01:00 03/30/24 02:00 Temperature 97 F L Pulse Rate 56 L Respiratory Rate 18 Blood Pressure 171/69 H 131/60 Pulse Oximetry 93 Oxygen Flow Rate 0 Oxygen Delivery Method Room Air Oxygen Flow Rate 0 Narrative Exam Narrative: NAD, alert and oriented. Fluent speech. Lungs are clear, normal rate and effort. Heart is regular, no murmur gallop or rub. Abdomen is soft, non distended. Extremities are free of edema. Objective Imaging Multiple studies:: Radiologist's impression: Lumbar spine MRI: 1. There is diffuse degenerative change with multilevel facet arthropathy present. There is also scoliotic curvature. 2. Canal stenosis is mild to moderate at L2-L3, moderate to severe at L3-L4, and moderate at L4-L5. 3. Multilevel foraminal narrowing as described above. Findings include moderate to severe right foraminal narrowing with a degree of right foraminal L2 nerve root impingement at L2-L3. Brain MRI: IMPRESSION: No acute intracranial process. Age-related volume loss and moderate small vessel ischemic change. Pelvis CT: IMPRESSION: Vertically oriented lucency adjacent to the proximal medial aspect of the right femoral arthroplasty stem which is nonspecific but may be related to moderate diffuse osteopenia and proximal although loosening, particle disease or other process could give this appearance. Moderate degenerate changes lower lumbar spine most notably L3-4 with severe central stenosis and bilateral neural foraminal narrowing and L4-5. Moderate calcifications of the aorta and iliac vessels. Pattern of constipation. Mild diverticulosis of the sigmoid colon without CT evidence of diverticulitis. If symptoms persist or worsen, MRI could be performed on an outpatient basis. Chest x-ray: IMPRESSION: Mild left lower lobe subsegmental atelectasis. Other chronic findings as discussed above. If symptoms persist or worsen, or there is high clinical suspicion of acute thoracic abnormality, CT could be performed Hip x-ray: IMPRESSION: Bilateral hip arthroplasties. New or increased lucency adjacent to the proximal femoral stem of the right hip arthroplasty. Moderate osteopenia, particle disease or loosening could have a similar appearance. If symptoms persist or worsen, or there is high clinical suspicion of acute abnormality, CT or MRI could be performed. Labs 03/30/24 04:24 03/30/24 04:24 Labs: Laboratory Results - last 24 hr 03/30/24 04:24 WBC 4.3 L RBC 3.19 L Hgb 10.0 L Hct 29.2 L MCV 91.6 MCH 31.3 MCHC 34.2 RDW 12.6 Plt Count 200 Neut % (Auto) 41.4 L Lymph % (Auto) 29.4 Alger % (Auto) 12.5 Eos % (Auto) 14.8 H Baso % (Auto) 1.9 Neut # (Auto) 1800 Lymph # (Auto) 1300 Alger # (Auto) 500 Eos # (Auto) 600 H Baso # (Auto) 100 Sodium 130 L Potassium 4.2 Chloride 101 Carbon Dioxide 23 BUN 24 H Creatinine 1.37 H Estimated GFR 38 L BUN/Creatinine Ratio 17.5 Glucose 92 Calcium 10.6 H [facility] Medical History Urinary incontinence Hyponatremia CKD stage 3b, GFR 30-44 ml/min History of COVID-19 (06/2022) Depression Easy bruisability Itching Osteoarthritis Breast cancer, right (~2018) HLD (hyperlipidemia) COPD (chronic obstructive pulmonary disease) Hearing impaired Neuropathy TIA (transient ischemic attack) Wrist fracture, left Hypertension Malignant neoplasm of right female breast Surgical History H/O right wrist surgery H/O left wrist surgery (03/2022) Hx of bladder repair surgery Hx of colonoscopy with polypectomy (2021) Hx of bilateral cataract extraction History of total right hip replacement History of hysterectomy Hx of right mastectomy (~08/20/17) Family History Father No problems noted. Mother No problems noted. Social History household members: children Smoking Status: Former smoker alcohol intake: current Discharge Assessment & Plan Assessment and Plan Assessment: (1) Femoral loosening of prosthetic right hip, present on admission and active. (2) Impaired mobility and ADLs, LLE weakness and imbalance, present on admission and active. (3) CKD stage 3b, GFR 30-44 ml/min, present on admission and active. (4) Anemia in CKD (chronic kidney disease), present on admission and active. (5) Hypertension, present on admission and active. (6) Hyponatremia, present on admission and active. (7) Urinary incontinence, present on admission and active. (8) Depression, present on admission and active. (9). History of prior TIA, present on admission and active. (10). Recent UTI, present on admission and active. [facility] The patient will have oxycodone for pain and complete 5 additional days of antibiotics for her possible UTI which was being treated prior to admission. Discharge Plan Discharge Plan Patient Disposition: SNF Transfer to: [facility] Under care of provider: SNF Doctor. Provider Discharge Comment: Stable for discharge to fdc facility. Discharge orders & Medications Prescriptions: New cephalexin 250 mg Capsule 250 mg PO TID Qty: 15 0RF oxycodone 5 mg Tablet 5 mg PO Q3H PRN (Reason: Pain, Moderate (4-6)) Qty: 15 0RF Continued sertraline 50 mg Tablet 50 mg PO DAILY Qty: 0 lisinopril 10 mg Tablet 10 mg PO BID fesoterodine [Toviaz] 4 mg tablet extended release 24 hr 4 mg PO DAILY acetaminophen 325 mg tablet 650 mg PO Q6H PRN (Reason: Pain (Scale Score 4-6)) docusate sodium 100 mg capsule 100 mg PO DAILY Changed aspirin 81 mg tablet,delayed release (DR/EC) 81 mg PO DAILY Qty: 30 0RF Discontinued diphenhydramine HCl [Allergy Relief(diphenhydramin)] 25 mg Tablet 50 mg PO BID ibuprofen 400 mg Tablet 400 mg PO Q4H Qty: 120 0RF No Action (DME) yobany Misc See Rx Instructions .Route Qty: 1 0RF Rx Instructions: Platform (forearm) yobany Follow up/Referrals: Johnathan Zhu MD [Primary Care Provider] - Discharge Health Status Multidrug resistant organism: No MDRO Diet/Activity/Treatments Diet: Regular Skin/Wound/Dressing Care Report to your healthcare provider any signs of infection, such as:: chills, fever, increased pain and unusual drainage Visit Report/Discharge Packet Stand Alone Forms: Patient Portal/API Discharge Data Primary Care Provider: Johnathan Zhu
--- NOTE | 2024-03-30 08:38 | CM.DPC ---
DCP Discharge SNF Per MD, pt is medically stable to d/c to SNF today and no identified barriers to discharge. Per [facility] transport, they can transport pt today at [address] [facility]. DIANN secure emailed pt's d/c summary, PASRR, signed med list, scripts, MD orders, PASRR signed and called Fiorella at [facility] and updated on above. DIANN called pt's Dtr Vivien in [place] [phone] as she had requested update on time for d/c and she confirms she and family and pt are very agreeable to d/c to [facility] today for short stay rehab. Updated FILM SOUND ENGINEER, oyster picker, and RN. Plan: Patient to discharge to [facility] today via [facility] transport at 1000 before safe return home with family and outpt ortho f/u. ROSHNI [place]
[2024-03-30 08:51] VITALS: BP 175/77
[2024-03-30] MEDS: DOCUSATE 100 MG CAPSULE PO (08:51)
[2024-03-30] MEDS: OXYBUTYNIN 5 MG ER TAB PO (08:51)
[2024-03-30] MEDS: lisinopriL 10 MG TABLET PO (08:51)
[2024-03-30] MEDS: SERTRALINE 50 MG TABLET PO (08:52)
[2024-03-30] MEDS: cephALEXin 250 MG CAPSULE PO (08:52)
[2024-03-30] MEDS: ENOXAPARIN 40 MG/0.4 ML SYRINGE SUBCUT (08:55)
[2024-03-30] MEDS: polyethylene glycoL 3350 17 GM POWD.PACK PO (09:00)
--- NOTE | 2024-03-30 10:09 | PC.NURSE ---
Pt deniess discomfort, Assisted w/ADL's preparing for D/C to [facility] in [place] Pt 1-2 PA w/ gait belt. SL discontinued intact. [facility] here at 0950 for transport. Pt escorted by [facility] staff to waiting vehicle
== END 2024-03-30 10:00 | DRG 560 ==
LOC: ED 18:03 → AC 20:02
PROVIDERS: Emergency Medicine; Internal Medicine; Admitting Provider Internal Medicine; Emergency Provider Emergency Medicine; Family Provider Family Medicine; PCP Family Medicine; Visit Provider Internal Medicine
DX: T84.030A Mechanical loosening of internal right hip prosthetic joint, initial encounter (principal); E87.1 Hypo-osmolality and hyponatremia; I12.9 Hypertensive chronic kidney disease with stage 1 through stage 4 chronic kidney disease, or unspecified chronic kidney disease; N18.32 Chronic kidney disease, stage 3b; D63.1 Anemia in chronic kidney disease; R32 Unspecified urinary incontinence; F32.A Depression, unspecified; R53.1 Weakness; R26.89 Other abnormalities of gait and mobility; Z74.09 Other reduced mobility; Z86.73 Personal history of transient ischemic attack (TIA), and cerebral infarction without residual deficits; Z87.440 Personal history of urinary (tract) infections; Z87.891 Personal history of nicotine dependence
CPT/HCPCS: 36415; 70551; 71045; 72148; 72192; 73502; 80048; 80053; 81001; 81003; 82550; 83690; 83735; 83880; 84484; 85025; 85610; 85730; 96374; 97162; 97167; 97530; 97535; 99284; 99285; J1170; J1650; J2060